=== PATIENT | female | born 1965 | race African-American/Black ===

== ENCOUNTER 2018-06-04 08:37 | Inpatient (IN) | payer OTHER ==
[2018-06-04 09:30] VITALS: BMI 25.0
--- NOTE | 2018-06-04 10:12 | HP ---
COWS - Scale Resting Pulse: 1= [place] 81-100 Sweatin= Chills/Flushing Restless Observation: 3= Extraneous Movement Pupil Size: 1= Pupils >than Normal Bone or Joint Aches: 2= Severe Diffuse Aches Runny Nose/ Eye Tearin= Runny Nose/Eyes GI Upset > 30mins: 2= Nausea/Diarrhea Tremor Observation: 2= Slight Tremor Visible Yawning Observation: 1= 1-2x During Session Anxiety or Irritability: 2=Irritable/Anxious Goose Flesh Skin: 0=Smooth Skin COWS Score: 17 CIWA Score Nausea/Vomitin Muscle Tremors: 2 Anxiety: 2 Agitation: 2 Paroxysmal Sweats: 1-Minimal Palms Moist Orientation: 0-Oriented Tacttile Disturbances: 1-Very Mild Itch/Numbness Auditory Disturbances: 1-Very Mild Visual Disturbances: 0-None Headache: 2-Mild CIWA-Ar Total Score: 13 - Admission Criteria OASAS Guidelines: Admission for Medically Managed Detox: Requires at least one of the followin. CIWA greater than 12 2. Seizures within the past 24 hours 3. Delirium tremens within the past 24 hours 4. Hallucinations within the past 24 hours 5. Acute intervention needed for co occurring medical disorder 6. Acute intervention needed for co occurring psychiatric disorder 7. Severe withdrawal that cannot be handled at a lower level of care (continued vomiting, continued diarrhea, abnormal vital signs) requiring intravenous medication and/or fluids 8. Admission ROS [facility] Chief Complaint: i need help to stop using heroin and alcohol Allergies/Adverse Reactions: Allergies Allergy/AdvReac Type Severity Reaction Status Date / Time No Known Allergies Allergy Verified 06/04/18 09:22 History of Present Illness: this 52 years old female with heroin and alcohol dependence,seeking detox, withdrawal symptom had previous admission before,last detox 2017 at [facility] nicotine 1 pack/requesting the gum anxiety,depression,insomnia taking seroquel 100 mgs po hs longest period of sobriety 5 years - Ebola screening Have you traveled outside of the country in the last 21 days: No Have you had contact with anyone from an Ebola affected area: No - Review of Systems Constitutional: Chills, Loss of Appetite, Malaise, Night Sweats, Changes in sleep, Weakness EENT: reports: Tearing, Nose Congestion Respiratory: reports: No Symptoms reported Cardiac: reports: No Symptoms Reported GI: reports: Diarrhea, Nausea, Vomiting, Abdominal cramping : reports: No Symptoms Reported Musculoskeletal: reports: Back Pain, Muscle Pain, Other (scoliois,arthritis of right hip) Integumentary: reports: Dryness Neuro: reports: Headache, Tremors Endocrine: reports: No Symptoms Reported Hematology: reports: No Symptoms Reported, Anemia Psychiatric: reports: No Sypmtoms Reported, Judgement Intact, Mood/Affect Appropiate, Orientated x3, Anxious, Depressed, other (insomnia) Other Systems: Reviewed and Negative Patient History - Patient Medical History Hx Anemia: Yes (no med) Hx Asthma: No Hx Chronic Obstructive Pulmonary Disease (COPD): No Hx Cancer: No Hx Cardiac Disorders: No Hx Congestive Heart Failure: No Hx Hypertension: No Hx Hypercholesterolemia: No Hx Pacemaker: No HX Cerebrovascular Accident: No Hx Seizures: No Hx Dementia: No Hx Diabetes: No Hx Gastrointestinal Disorders: No Hx Liver Disease: No Hx Genitourinary Disorders: No Hx Sexually Transmitted Disorders: No Hx Renal Disease (ESRD): No Hx Thyroid Disease: No Hx Human Immunodeficiency Virus (HIV): No (2018 negative) Hx Hepatitis C: No Hx Depression: Yes (anxiety) Hx Suicide Attempt: No Hx Bipolar Disorder: No Hx Schizophrenia: No Other Medical History: no suicidl,no homicidal - Patient Surgical History Past Surgical History: Yes Hx Section: Yes (x1 22 yers ago) - PPD History Previous Implant?: Yes Documented Results: Negative w/o proof PPD to be Administered?: Yes - Smoking Cessation Smoking history: Current every day smoker Have you smoked in the past 12 months: Yes Aproximately how many cigarettes per day: 20 Cigars Per Day: 0 Hx Chewing Tobacco Use: No Initiated information on smoking cessation: Yes 'Breaking Loose' booklet given: 06/04/18 - Substance & Tx. History Hx Alcohol Use: Yes Hx Substance Use: Yes Substance Use Type: Alcohol, Heroin Hx Substance Use Treatment: Yes (2017 [facility]) - Substances abused Heroin Substance route: Inhalation Frequency: Daily Amount used: 10 BAGS Age of first use: 20 Date of last use: 06/03/18 Alcohol Substance route: Oral Frequency: Daily Amount used: 1 L liquor, 1 pt. vodka Age of first use: 49 Date of last use: 06/03/18 Family Disease History - Family Disease History Family History: Denies Admission Physical Exam [facility] - Vital Signs Vital Signs: Vital Signs - 24 hr 06/04/18 09:25 Temperature 98 F Pulse Rate 70 Respiratory 18 Rate Blood Pressure 117/80 - Physical General Appearance: Yes: Moderate Distress, Tremorous, Irritable, Sweating, Anxious HEENTM: Yes: Normal ENT Inspection, ARMANDO, Pharynx Normal Respiratory: Yes: Lungs Clear, Normal Breath Sounds, No Respiratory Distress Neck: Yes: Within Normal Limits, Supple, Trachea in good position Breast: Yes: Breast Exam Deferred Cardiology: Yes: Within Normal Limits, Regular Rhythm, Regular Rate, S1, S2 Abdominal: Yes: Within Normal Limits, Normal Bowel Sounds, Non Tender, Flat, Soft Genitourinary: Yes: Within Normal Limits Back: Yes: Muscle Spasm, Other (scoliosis) Musculoskeletal: Yes: Back pain, Joint Stiffness, Muscle Pain, Other (right hip arthritis) Extremities: Yes: Normal Capillary Refill, Normal Inspection, Normal Range of Motion, Tremors Neurological: Yes: applications administrator II-XII NML intact, Fully Oriented, Alert, Motor Strength 5/5 Integumentary: Yes: Dry Lymphatic: Yes: Within Normal Limits - Diagnostic (1) Opioid dependence with withdrawal Current Visit: Yes Status: Acute (2) Alcohol dependence with uncomplicated withdrawal Current Visit: Yes Status: Acute (3) Scoliosis Current Visit: Yes Status: Acute (4) Arthritis of right hip Current Visit: Yes Status: Acute (5) Anxiety and depression Current Visit: Yes Status: Acute (6) Insomnia Current Visit: Yes Status: Acute Cleared for Admission [facility] - Detox or Rehab [facility] Level of Care: Medically Managed Detox Regimen/Protocol: Methadone/Librium Breathalyzer - Breathalyzer Breathalyzer: 0 POC Urine test - Test device test lot number: [id number] Expiration date: 10/21/19 - Control test control: Yes - Result Urine Test Results: Negative - NO line present Urine Drug Screen - Test Device Lot number: [id number] Expiration date: 01/20/20 - Control Is test valid?: Yes - Results Drug screen NEGATIVE: No Urine drug screen results: MOP-Opiates Inpatient Rehab Admission - Rehab Decision to Admit Inpatient rehab admission?: No
[2018-06-04] MEDS ORDERED: MAGNESIUM HYDROX 2400MG/30ML ORAL SUSPENSION 30 ML CUP PO PRN (10:23)
[2018-06-04] MEDS ORDERED: BISMUTH SUBSALICYLATE 262 MG/15 ML BTL PO PRN (10:23)
[2018-06-04] MEDS ORDERED: MAGNESIUM CITRATE 300 ML BOTTLE PO PRN (10:23)
[2018-06-04] MEDS ORDERED: ACETAMINOPHEN 325 MG TABLET (FP) PO PRN (10:23)
[2018-06-04] MEDS ORDERED: MENTHOL/PHENOL 1 EACH UD MM PRN (10:23)
[2018-06-04] MEDS ORDERED: MAG HYDROX/AL HYDROX/SIMETH 30 ML UNIT-DOSE CUP PO PRN (10:23)
[2018-06-04] MEDS ORDERED: IBUPROFEN 400 MG TABLET (FP) PO PRN (10:23)
[2018-06-04] MEDS ORDERED: METHADONE HCL 10 MG TABLET (FOR DETOX USE ONLY) PO ONE ×2 (10:27→23:00)
[2018-06-04] MEDS: chlordiazePOXIDE HCL 25 MG CAPSULE PO PRN (11:32)
[2018-06-04 14:31] LABS: URINE APPEARANCE TURBID; URINE BILIRUBIN NEGATIVE (NEGATIVE); URINE COLOR DK YELLOW; URINE GLUCOSE (UA) NEGATIVE (NEGATIVE); URINE KETONE TRACE (NEGATIVE); URINE LEUK ESTERASE NEGATIVE (NEGATIVE); URINE NITRITE NEGATIVE (NEGATIVE); URINE PROTEIN NEGATIVE (NEGATIVE)
[2018-06-04 14:37] LABS: HEMATOCRIT 34.9 % (32.4-45.2); MCH 23.8 pg (25.7-33.7); MCHC 31.4 g/dl (32.0-36.0); MEAN CELL VOLUME 75.6 fl (80-96); MEAN PLT VOLUME 8.3 fl (7.5-11.1); PLATELET COUNT 336 K/MM3 (134-434); RBC 4.61 M/mm3 (3.60-5.2); RDW 17.5 % (11.6-15.6); WHITE BLOOD COUNT 7.2 K/mm3 (4.0-10.0)
[2018-06-04 14:56] LABS: ALBUMIN 3.5 g/dl (3.4-5.0); ALK PHOS 125 U/L (45-117); ANION GAP 4 MMOL/L (8-16); BILIRUBIN,TOTAL 0.3 mg/dL (0.2-1); BLOOD UREA NITROGEN 12 mg/dL (7-18); CALCIUM 8.9 mg/dL (8.5-10.1); CHLORIDE 107 mmol/L (98-107); CO2 27 mmol/L (21-32); CREATININE 0.7 mg/dL (0.55-1.3); GLUCOSE,RANDOM 122 mg/dL (74-106); POTASSIUM 3.8 mmol/L (3.5-5.1); SGOT/AST 13 U/L (15-37); SGPT/ALT 13 U/L (13-61); SODIUM 138 mmol/L (136-145); TOT PROT 7.6 g/dl (6.4-8.2)
[2018-06-04] MEDS: chlordiazePOXIDE HCL 25 MG CAPSULE PO SCH ×2 (17:10→22:22)
[2018-06-04] MEDS: QUEtiapine FUMARATE 100 MG TABLET (FP) PO SCH (22:21)
[2018-06-04] MEDS: THIAMINE HCL 100 MG TABLET (FP) PO SCH (22:21)
[2018-06-04] MEDS: MELATONIN 5 MG TABLETS PO PRN (22:22)
[2018-06-05] MEDS: chlordiazePOXIDE HCL 25 MG CAPSULE PO SCH ×4 (05:29→22:18)
[2018-06-05] MEDS ORDERED: METHADONE HCL 10 MG TABLET (FOR DETOX USE ONLY) PO ONE (10:00)
[2018-06-05] MEDS: PANTOPRAZOLE 40 MG TABLET (FP) PO SCH (10:06)
[2018-06-05] MEDS: PRENATAL VITAMINS W/ FOLIC ACID TABLET (FP) PO SCH (10:06)
--- NOTE | 2018-06-05 10:30 | PN ---
[facility] CIWA - CIWA Score Nausea/Vomitin-No Nausea/No Vomiting Muscle Tremors: 3 Anxiety: 3 Agitation: 3 Paroxysmal Sweats: 3 Orientation: 0-Oriented Tacttile Disturbances: 0-None Auditory Disturbances: 0-None Visual Disturbances: 0-None Headache: 0-None Present CIWA-Ar Total Score: 12 [facility]HS COWS - Scale Resting Pulse: 0= [place] 80 or Below Sweatin=Flushed/Facial Moisture Restless Observation: 1= Difficult to Sit Still Pupil Size: 0= Normal to Room Light Bone or Joint Aches: 1= Mild Discomfort Runny Nose/ Eye Tearin= Runny Nose/Eyes GI Upset > 30mins: 1= Stomach Cramp Tremor Observation of Outstretched Hands: 1= Tremor [place], Not Seen Yawning Observation: 1= 1-2x During Session Anxiety or Irritability: 1=Feels Anxious/Irritable Goose Flesh Skin: 0=Smooth Skin COWS Score: 10 S Progress Note (SOAP) Subjective: sweats shakes low appetite interrupted sleep tired body aches Objective: 06/05/18 10:30 Vital Signs Temperature 98.1 F 06/05/18 09:17 Pulse Rate 72 06/05/18 09:17 Respiratory Rate 18 06/05/18 09:17 Blood Pressure 106/51 L 06/05/18 09:17 O2 Sat by Pulse Oximetry (%) Laboratory Tests 06/04/18 06/04/18 06/04/18 10:30 10:30 12:00 WBC 7.2 RBC 4.61 Hgb 11.0 Hct 34.9 MCV 75.6 L MCH 23.8 L MCHC 31.4 L RDW 17.5 H Plt Count 336 MPV 8.3 Sodium 138 Potassium 3.8 Chloride 107 Carbon Dioxide 27 Anion Gap 4 L BUN 12 Creatinine 0.7 Creat Clearance w eGFR 87.53 Random Glucose 122 H Calcium 8.9 Total Bilirubin 0.3 AST 13 L ALT 13 Alkaline Phosphatase 125 H Total Protein 7.6 Albumin 3.5 Urine Color Dk yellow Urine Appearance Turbid Urine pH 5.0 Ur Specific [place] 1.028 Urine Protein Negative Urine Glucose (UA) Negative Urine Ketones Trace H Urine Blood Negative Urine Nitrite Negative Urine Bilirubin Negative Urine Urobilinogen 1.0 Ur Leukocyte Esterase Negative aaox3 ambulating no acute distress Assessment: 06/05/18 10:30 withdrawal sx Plan: continue detox increase fluids
--- NOTE | 2018-06-05 10:54 | EKG ---
Test Reason : Blood Pressure : / mmHG Vent. Rate : 070 BPM Atrial Rate : 070 BPM P-R Int : 148 ms QRS Dur : 084 ms QT Int : 416 ms P-R-T Axes : 052 049 060 degrees QTc Int : 449 ms NORMAL SINUS RHYTHM NORMAL ECG NO PREVIOUS ECGS AVAILABLE Confirmed by MD Gregory, Prasanth ([id number]) on 06/05/2018 10:54:10 AM Referred By: Confirmed By:Prasanth Jenkins MD
--- NOTE | 2018-06-05 11:29 | CONSULT ---
[facility] Psychiatric Consult - Data Date of interview: 06/05/18 Admission source: Self-referred Identifying data: Ms Frazier is a 52 years old single Black female, mother of 3 children, unemployed receiving food stamp,living with girlfriend seeking detox treatment for alcohol and opioid Substance Abuse History: Reports history of alcohol and opioid use. Refer to addiction counselor's summary for further information. Medical History: Significant for anemia, GERD, scoliosis, arthritis right hip and history of x2. Smokes cigarettes 1 ppd Psychiatric History: Patient does not seems to be a reliable historian. Reports that for years while in [place], she has been seeing different psychiatrists for treatment of depression, anxiety and insomnia. Reports that she has been prescribed Seroquel, Doxepin and other medications. Told music writer that she has not had any psychiatric contact since she moved to [place] in December 2017. She denies previous psychiatric hospitalization or suicidal attempt. She saw Dr Green in [facility] and she was started on Seroquel 100 mg po HS. At present, reports feeling depressed and sleeping poorly Physical/Sexual Abuse/Trauma History: Denies history of emotional, physical or sexual abuse as well as DV relation. No service Additional Comment: Reports history of multiple previous misdemeanor arrests. No probation or open case at present Mental Status Exam - Mental Status Exam Alert and Oriented to: Time, Place, Person Cognitive Function: Fair Patient Appearance: Well Groomed Mood: Depressed Affect: Appropriate Patient Behavior: Cooperative Speech Pattern: Clear, Artificially Ventilated Thought Process: Intact, Goal Oriented Thought Disorder: Not Present Hallucinations: Denies Suicidal Ideation: Denies Insight/Judgement: Poor Sleep: Poorly Appetite: Poor Muscle strength/Tone: Normal Gait/Station: Normal Psychiatric Findings - Problem List (Martha 1, 2,3) (1) Mood disorder Current Visit: Yes Status: Chronic (2) Substance induced mood disorder Current Visit: Yes Status: Acute (3) Substance-induced sleep disorder Current Visit: Yes Status: Acute (4) Alcohol dependence with uncomplicated withdrawal Current Visit: Yes Status: Acute (5) Opioid dependence with withdrawal Current Visit: Yes Status: Acute (6) Nicotine dependence Current Visit: Yes Status: Chronic (7) Arthritis of right hip Current Visit: Yes Status: Chronic (8) Scoliosis Current Visit: Yes Status: Chronic (9) Anemia Current Visit: Yes Status: Chronic (10) GERD (gastroesophageal reflux disease) Current Visit: Yes Status: Chronic - Initial Treatment Plan Initial Treatment Plan: 1) Continue Seroquel 100 mg po HS ordered by Dr Green. 2) Continue inpatent detoxification
[2018-06-05] MEDS: NICOTINE POLACRILEX 2 MG GUM BUC PRN ×2 (11:38→17:09)
[2018-06-05] MEDS: chlordiazePOXIDE HCL 25 MG CAPSULE PO PRN (12:36)
[2018-06-05] MEDS: ACETAMINOPHEN 325 MG TABLET (FP) PO PRN (17:11)
[2018-06-05] MEDS: QUEtiapine FUMARATE 100 MG TABLET (FP) PO SCH (22:18)
[2018-06-05] MEDS: THIAMINE HCL 100 MG TABLET (FP) PO SCH (22:18)
[2018-06-05] MEDS: MELATONIN 5 MG TABLETS PO PRN (22:19)
[2018-06-06] MEDS: chlordiazePOXIDE HCL 25 MG CAPSULE PO SCH ×2 (05:43→10:19)
[2018-06-06] MEDS: cloNIDine HCL 0.1 MG TABLET PO PRN ×3 (05:44→22:11)
[2018-06-06] MEDS ORDERED: METHADONE HCL 10 MG TABLET (FOR DETOX USE ONLY) PO ONE (10:00)
[2018-06-06] MEDS: PANTOPRAZOLE 40 MG TABLET (FP) PO SCH (10:19)
[2018-06-06] MEDS: PRENATAL VITAMINS W/ FOLIC ACID TABLET (FP) PO SCH (10:19)
[2018-06-06] MEDS: NICOTINE POLACRILEX 2 MG GUM BUC PRN (10:29)
--- NOTE | 2018-06-06 12:26 | PN ---
[facility] CIWA - CIWA Score Nausea/Vomitin-No Nausea/No Vomiting Muscle Tremors: 3 Anxiety: 2 Agitation: 2 Paroxysmal Sweats: 2 Orientation: 0-Oriented Tacttile Disturbances: 0-None Auditory Disturbances: 0-None Visual Disturbances: 0-None Headache: 0-None Present CIWA-Ar Total Score: 9 BHS COWS - Scale Resting Pulse: 0= [place] 80 or Below Sweatin=Flushed/Facial Moisture Restless Observation: 1= Difficult to Sit Still Pupil Size: 0= Normal to Room Light Bone or Joint Aches: 1= Mild Discomfort Runny Nose/ Eye Tearin= Nasal Congestion GI Upset > 30mins: 0= None Tremor Observation of Outstretched Hands: 1= Tremor [place], Not Seen Yawning Observation: 1= 1-2x During Session Anxiety or Irritability: 2=Irritable/Anxious Goose Flesh Skin: 0=Smooth Skin COWS Score: 9 S Progress Note (SOAP) Subjective: sweats sleepy tired body aches Objective: 06/06/18 12:25 Vital Signs Temperature 97.5 F L 06/06/18 09:42 Pulse Rate 73 06/06/18 09:42 Respiratory Rate 18 06/06/18 09:42 Blood Pressure 119/66 06/06/18 09:42 O2 Sat by Pulse Oximetry (%) Laboratory Tests 06/04/18 06/04/18 06/04/18 10:30 10:30 10:30 WBC 7.2 RBC 4.61 Hgb 11.0 Hct 34.9 MCV 75.6 L MCH 23.8 L MCHC 31.4 L RDW 17.5 H Plt Count 336 MPV 8.3 Sodium 138 Potassium 3.8 Chloride 107 Carbon Dioxide 27 Anion Gap 4 L BUN 12 Creatinine 0.7 Creat Clearance w eGFR 87.53 Random Glucose 122 H Calcium 8.9 Total Bilirubin 0.3 AST 13 L ALT 13 Alkaline Phosphatase 125 H Total Protein 7.6 Albumin 3.5 Urine Color Urine Appearance Urine pH Ur Specific [place] Urine Protein Urine Glucose (UA) Urine Ketones Urine Blood Urine Nitrite Urine Bilirubin Urine Urobilinogen Ur Leukocyte Esterase RPR Titer Nonreactive 06/04/18 12:00 WBC RBC Hgb Hct MCV MCH MCHC RDW Plt Count MPV Sodium Potassium Chloride Carbon Dioxide Anion Gap BUN Creatinine Creat Clearance w eGFR Random Glucose Calcium Total Bilirubin AST ALT Alkaline Phosphatase Total Protein Albumin Urine Color Dk yellow Urine Appearance Turbid Urine pH 5.0 Ur Specific [place] 1.028 Urine Protein Negative Urine Glucose (UA) Negative Urine Ketones Trace H Urine Blood Negative Urine Nitrite Negative Urine Bilirubin Negative Urine Urobilinogen 1.0 Ur Leukocyte Esterase Negative RPR Titer aaox3 ambulating no acute distress Assessment: 06/06/18 12:25 withdrawal sx Plan: continue detox increase fluids
[2018-06-06] MEDS ORDERED: chlordiazePOXIDE HCL 10 MG CAPSULE PO PRN (17:00)
[2018-06-06] MEDS: chlordiazePOXIDE HCL 10 MG CAPSULE PO SCH ×2 (17:20→22:11)
[2018-06-06] MEDS: ACETAMINOPHEN 325 MG TABLET (FP) PO PRN (19:16)
[2018-06-06] MEDS ORDERED: IBUPROFEN 400 MG TABLET (FP) PO PRN (19:18)
[2018-06-06] MEDS: hydrOXYzine PAMOATE 25 MG CAPSULE (FP) PO PRN (19:20)
--- NOTE | 2018-06-06 19:20 | PN ---
[facility] Progress Note Note: hip pain no relief with ibuprofen 400mg, pending hip replacement ibuprofen increase to 600mg tid increase fluids continue to monitor
[2018-06-06] MEDS: METHOCARBAMOL 500 MG TABLET PO PRN (19:21)
[2018-06-06] MEDS: IBUPROFEN 600 MG TABLET (FP) PO PRN (22:10)
[2018-06-06] MEDS: THIAMINE HCL 100 MG TABLET (FP) PO SCH (22:11)
[2018-06-06] MEDS: MELATONIN 5 MG TABLETS PO PRN (22:11)
[2018-06-06] MEDS: QUEtiapine FUMARATE 100 MG TABLET (FP) PO SCH (22:11)
[2018-06-07] MEDS: chlordiazePOXIDE HCL 10 MG CAPSULE PO SCH ×3 (05:30→17:32)
[2018-06-07] MEDS: IBUPROFEN 600 MG TABLET (FP) PO PRN ×2 (09:49→22:01)
[2018-06-07] MEDS ORDERED: METHADONE HCL 10 MG TABLET (FOR DETOX USE ONLY) PO ONE (10:00)
[2018-06-07] MEDS: PRENATAL VITAMINS W/ FOLIC ACID TABLET (FP) PO SCH (10:35)
[2018-06-07] MEDS: PANTOPRAZOLE 40 MG TABLET (FP) PO SCH (10:35)
[2018-06-07] MEDS: NICOTINE POLACRILEX 2 MG GUM BUC PRN ×2 (12:33→15:16)
--- NOTE | 2018-06-07 13:11 | PN ---
S Progress Note (SOAP) Subjective: agitation sweats i need my acid reflux medication before breakfast Objective: 06/07/18 13:09 Vital Signs Temperature 96.3 F L 06/07/18 10:55 Pulse Rate 94 H 06/07/18 10:55 Respiratory Rate 18 06/07/18 10:55 Blood Pressure 109/73 06/07/18 10:55 O2 Sat by Pulse Oximetry (%) aaox3 ambulating no acute distress Assessment: 06/07/18 13:10 mild withdrawal Plan: continue detox protonix ordered for 6am as per pt request d/c in am
[2018-06-07] MEDS: hydrOXYzine PAMOATE 25 MG CAPSULE (FP) PO PRN (20:27)
[2018-06-07] MEDS: MELATONIN 5 MG TABLETS PO PRN (22:00)
[2018-06-07] MEDS: QUEtiapine FUMARATE 100 MG TABLET (FP) PO SCH (22:02)
[2018-06-07] MEDS: THIAMINE HCL 100 MG TABLET (FP) PO SCH (22:02)
[2018-06-07] MEDS: METHOCARBAMOL 500 MG TABLET PO PRN (22:02)
[2018-06-08] MEDS: chlordiazePOXIDE HCL 10 MG CAPSULE PO SCH (05:39)
[2018-06-08] MEDS ORDERED: METHADONE HCL 5 MG TABLET (FOR DETOX USE ONLY) PO ONE (06:00)
[2018-06-08] MEDS ORDERED: PANTOPRAZOLE 40 MG TABLET (FP) PO SCH (06:00)
[2018-06-08 07:12] VITALS: BP 146/90; PULSE 78; TEMP 97.5
--- NOTE | 2018-06-08 08:55 | DS ---
[facility] Detox Discharge Summary Admission Date: 06/04/18 Discharge Date: 06/08/18 - History Present History: Alcohol Dependence, Opioid Dependence Additional Comments: Patient medically stable. Patient - Physical Exam Results Vital Signs: Vital Signs Temperature 97.5 F L 06/08/18 06:00 Pulse Rate 78 06/08/18 06:00 Respiratory Rate 18 06/08/18 06:00 Blood Pressure 146/90 06/08/18 06:00 O2 Sat by Pulse Oximetry (%) - Treatment Hospital Course: Detox Protocol Followed, Detoxed Safely, Responded well, Discharged Condition Good Patient has Accepted a Rehab Referral to: out patient - Medication Discharge Medications: Ambulatory Orders Omeprazole 10 mg PO PRN 06/04/18 - Diagnosis (1) Alcohol dependence with uncomplicated withdrawal Status: Acute (2) Insomnia Status: Acute Qualifiers: Insomnia type: unspecified Qualified Code(s): G47.00 - Insomnia, unspecified (3) Anemia Status: Chronic (4) Arthritis of right hip Status: Chronic (5) GERD (gastroesophageal reflux disease) Status: Chronic (6) Nicotine dependence Status: Chronic (7) Scoliosis Status: Chronic - AMA Did Patient Leave Against Medical Advice: No
== END 2018-06-08 09:00 | disposition home or self-care (01) | DRG 773 ==
LOC: YASAS 08:37 → Y6N 10:27
PROVIDERS: ADMIT Surgery; ATTEND Surgery
PROC: HZ2ZZZZ Detoxification Services for Substance Abuse Treatment (ICD-10-PCS; principal; 2018-06-04)
DX: F11.23 Opioid dependence with withdrawal (principal); F10.230 Alcohol dependence with withdrawal, uncomplicated; F17.210 Nicotine dependence, cigarettes, uncomplicated; F39 Unspecified mood [affective] disorder; F19.24 Other psychoactive substance dependence with psychoactive substance-induced mood disorder; F19.282 Other psychoactive substance dependence with psychoactive substance-induced sleep disorder; F32.9 Major depressive disorder, single episode, unspecified; F41.9 Anxiety disorder, unspecified; K21.9 Gastro-esophageal reflux disease without esophagitis; D64.9 Anemia, unspecified; M16.11 Unilateral primary osteoarthritis, right hip; M41.9 Scoliosis, unspecified; G47.00 Insomnia, unspecified
CPT/HCPCS: 36415; 80053; 81003; 85027; 86593; 93005; 93010; J0735

== ENCOUNTER 2018-12-19 08:24 | Inpatient (IN) | payer OTHER ==
[2018-12-19 08:41] VITALS: BMI 23.1
--- NOTE | 2018-12-19 09:07 | HP ---
COWS - Scale Resting Pulse: 1= [place] 81-100 Sweatin= No chills or Flushing Restless Observation: 1= Difficult to Sit Still Pupil Size: 1= Pupils >than Normal Bone or Joint Aches: 1= Mild Discomfort Runny Nose/ Eye Tearin= Nasal Congestion GI Upset > 30mins: 1= Stomach Cramp Tremor Observation: 1= Tremor [place], Not Seen Yawning Observation: 1= 1-2x During Session Anxiety or Irritability: 2=Irritable/Anxious Goose Flesh Skin: 3=Piloerection COWS Score: 13 CIWA Score - Admission Criteria OASAS Guidelines: Admission for Medically Managed Detox: Requires at least one of the followin. CIWA greater than 12 2. Seizures within the past 24 hours 3. Delirium tremens within the past 24 hours 4. Hallucinations within the past 24 hours 5. Acute intervention needed for co occurring medical disorder 6. Acute intervention needed for co occurring psychiatric disorder 7. Severe withdrawal that cannot be handled at a lower level of care (continued vomiting, continued diarrhea, abnormal vital signs) requiring intravenous medication and/or fluids 8. Admitting History and Physical - Admission Chief Complaint: " I want to prevent myself from continuing heroin." History of Present Illness: 53 year old black female with history of opioid dependence with withdrawals. She states she relapsed in 09/2018 and started using again heavily 5-6 bags of heroin intransally every day. She was bored and wanted to use again. She is unemployed and homeless and stays with friends and family, not in assisted system. She states she has not overdosed in the past and carries a narcan kit. She admits to having partied yesterday and use multiple substances: cocaine, crack, pcp, and oxycodone. She is prescribed Oxycodone by orthopedist due to Scoliosis and chronic back pain. She is also prescribed benzodiazepines for the chronic pain and anxiety. Psych: Dr. Henriquez who prescribed xanax, seroquel and one other medication. H/O Depression and Anxiety. She denies SI or plans. PMH: Scoliosis, GERD, Requires Hip replacement Right hip arthritis, Anemia on no meds. ?Pancreas Kidney issues. All: none Psurgery: Prior C/S. History Source: Patient Limitations to Obtaining History: No Limitations - Past Medical History Gastrointestinal: Yes: GERD ...LMP: 11/25/14 (post menopausal) ...: No ...: 3 ...Para: 3 Psych: Yes: Anxiety, Depression - Past Surgical History Additional Past Surgical History: caesarian section for of 3rd child. - Advance Directives Advance Directives: No: Living Will, Health Care Proxy, DNR - Smoking History Smoking history: Current every day smoker Have you smoked in the past 12 months: Yes Aproximately how many cigarettes per day: 20 - Alcohol/Substance Use Hx Alcohol Use: Yes (occasional) History of Substance Use: reports: Cocaine, Heroin, Prescription, Tranquilizers - Social History Usual Living Arrangement: Yes: Alone Do you think of yourself as: Straight/Heterosexual ADL: Independent Occupation: Cook History of Recent Travel: No Admission [facility] Chief Complaint: " I want to prevent myself from continuing heroin." Allergies/Adverse Reactions: Allergies Allergy/AdvReac Type Severity Reaction Status Date / Time No Known Allergies Allergy Verified 12/19/18 08:34 History of Present Illness: 53 year old black female with history of opioid dependence with withdrawals. She states she relapsed in 09/2018 and started using again heavily 5-6 bags of heroin intransally every day. She was bored and wanted to use again. She is unemployed and homeless and stays with friends and family, not in assisted system. She states she has not overdosed in the past and carries a narcan kit. She admits to having partied yesterday and use multiple substances: cocaine, crack, pcp, and oxycodone. She is prescribed Oxycodone by orthopedist due to Scoliosis and chronic back pain. She is also prescribed benzodiazepines for the chronic pain and anxiety. Psych: Dr. Henriquez who prescribed xanax, seroquel and one other medication. H/O Depression and Anxiety. She denies SI or plans. PMH: Scoliosis, GERD, Requires Hip replacement for Right hip arthritis, anemia on no meds ?Pancreas Kidney issues. All: none Psurgery: Prior C/S. Exam Limitations: No Limitations - Ebola screening Have you traveled outside of the country in the last 21 days: No Have you had contact with anyone from an Ebola affected area: No Have you been sick,other than usual withdrawal symptoms: No Do you have a fever: No - Review of Systems Constitutional: Chills, Diaphoresis EENT: reports: No Symptoms Reported Respiratory: reports: No Symptoms reported Cardiac: reports: No Symptoms Reported GI: reports: Nausea, Abdominal cramping : reports: No Symptoms Reported Musculoskeletal: reports: Joint Pain, Muscle Pain Integumentary: reports: No Symptoms Reported Neuro: reports: No Symptoms reported Endocrine: reports: No Symptoms Reported Hematology: reports: No Symptoms Reported Psychiatric: reports: Agitated, Anxious, Depressed Other Systems: Reviewed and Negative Patient History - Patient Medical History Hx Anemia: Yes (no med) Hx Asthma: No Hx Chronic Obstructive Pulmonary Disease (COPD): No Hx Cancer: No Hx Cardiac Disorders: No Hx Congestive Heart Failure: No Hx Hypertension: No Hx Hypercholesterolemia: No Hx Pacemaker: No HX Cerebrovascular Accident: No Hx Seizures: No Hx Dementia: No Hx Diabetes: No Hx Gastrointestinal Disorders: No Hx Liver Disease: No Hx Genitourinary Disorders: No Hx Sexually Transmitted Disorders: No Hx Renal Disease (ESRD): No Hx Thyroid Disease: No Hx Human Immunodeficiency Virus (HIV): No (2018 negative) Hx Hepatitis C: No Hx Depression: Yes (anxiety) Hx Suicide Attempt: No Hx Bipolar Disorder: No Hx Schizophrenia: No - Patient Surgical History Past Surgical History: Yes Hx Section: Yes (x1 22 yers ago) - PPD History Previous Implant?: Yes Documented Results: Negative w/proof Implanted On Prior R Admission?: Yes Date: 06/06/18 Results: negative PPD to be Administered?: Yes - Smoking Cessation Smoking history: Current every day smoker Have you smoked in the past 12 months: Yes Aproximately how many cigarettes per day: 20 Cigars Per Day: 0 Hx Chewing Tobacco Use: No Initiated information on smoking cessation: Yes 'Breaking Loose' booklet given: 12/19/18 - Substance & Tx. History Hx Alcohol Use: No Hx Substance Use: Yes Substance Use Type: Cocaine, Heroin, Opiates, Prescribed Hx Substance Use Treatment: Yes (prior detox in 05/2018) - Substances abused Heroin Substance route: Inhalation Frequency: Daily Amount used: 6 BAGS Age of first use: 20 Date of last use: 12/19/18 Alcohol Substance route: Oral Frequency: Daily Amount used: 1 L liquor, 1 pt. vodka Age of first use: 49 Date of last use: 06/03/18 Admission Physical Exam BHS - Vital Signs Vital Signs: Vital Signs - 24 hr 12/19/18 08:38 Temperature 97.1 F L Pulse Rate 85 Respiratory 18 Rate Blood Pressure 107/76 - Physical General Appearance: Yes: Mild Distress HEENTM: Yes: EOMI, Hearing grossly Normal, Normal ENT Inspection, Normocephalic , Normal Voice, ARMANDO, Pharynx Normal, Tm's normal Respiratory: Yes: Chest Non-Tender, Lungs Clear, Normal Breath Sounds, No Respiratory Distress, No Accessory Muscle Use Neck: Yes: No masses,lesions,Nodules, Supple, Trachea in good position Breast: Yes: Breast Exam Deferred Cardiology: Yes: Regular Rhythm, S1, S2, Tachycardia Abdominal: Yes: Non Tender, Soft, Increased Bowel Sounds Genitourinary: Yes: Within Normal Limits Back: Yes: Normal Inspection Musculoskeletal: Yes: full range of Motion, Gait Steady, Pelvis Stable Extremities: Yes: Normal Capillary Refill Neurological: Yes: track leader II-XII NML intact, Fully Oriented, Alert, Motor Strength 5/5, Normal Mood/Affect, Unresponsive Integumentary: Yes: Normal Color, Warm Lymphatic: Yes: Within Normal Limits - Diagnostic (1) Opioid dependence with withdrawal Current Visit: Yes Status: Acute (2) Anemia Current Visit: Yes Status: Chronic (3) Arthritis of right hip Current Visit: Yes Status: Chronic (4) GERD (gastroesophageal reflux disease) Current Visit: Yes Status: Chronic Screened but not Admitted - Documentation of Visit Screened but not Admitted: No Breathalyzer - Breathalyzer Breathalyzer: 0 Vital Signs - Vital Signs Vital signs refused: No POC Urine test - Test device test lot number: [id number] Expiration date: 10/21/19 - Control test control: Yes Urine Drug Screen - Test Device Lot number: [id number] Expiration date: 01/20/20 - Control Is test valid?: Yes - Results Drug screen NEGATIVE: No Urine drug screen results: DEYVI-Cocaine, FEN-Fentanyl, MOP-Opiates, BZO- Benzodiazepines, BUP-Suboxone Inpatient Rehab Admission - Rehab Decision to Admit Inpatient rehab admission?: No
[2018-12-19] MEDS ORDERED: METHADONE HCL 10 MG TABLET (FOR DETOX USE ONLY) PO ONE (09:19)
[2018-12-19] MEDS ORDERED: MELATONIN 5 MG TABLETS PO PRN (09:19)
[2018-12-19] MEDS ORDERED: MAG HYDROX/AL HYDROX/SIMETH 30 ML UNIT-DOSE CUP PO PRN (09:19)
[2018-12-19] MEDS ORDERED: METHOCARBAMOL 500 MG TABLET PO PRN (09:19)
[2018-12-19] MEDS ORDERED: MAGNESIUM HYDROX 2400MG/30ML ORAL SUSPENSION 30 ML CUP PO PRN (09:19)
[2018-12-19] MEDS ORDERED: MENTHOL/PHENOL 1 EACH UD MM PRN (09:19)
[2018-12-19] MEDS ORDERED: hydrOXYzine PAMOATE 25 MG CAPSULE (FP) PO PRN (09:19)
[2018-12-19] MEDS ORDERED: BISMUTH SUBSALICYLATE 262 MG/15 ML BTL PO PRN (09:19)
[2018-12-19] MEDS ORDERED: ACETAMINOPHEN 325 MG TABLET (FP) PO PRN ×2 (09:19)
[2018-12-19] MEDS ORDERED: MAGNESIUM CITRATE 300 ML BOTTLE PO PRN (09:19)
[2018-12-19] MEDS ORDERED: IBUPROFEN 400 MG TABLET (FP) PO PRN (09:19)
[2018-12-19] MEDS ORDERED: PANTOPRAZOLE 40 MG TABLET (FP) PO SCH (10:00)
[2018-12-19] MEDS: PRENATAL VITAMINS W/ FOLIC ACID TABLET (FP) PO SCH (10:13)
[2018-12-19] MEDS: NICOTINE 14 MG/24 HOURS TOPICAL PATCH TD SCH (10:13)
[2018-12-19 12:18] LABS: HEMATOCRIT 40.4 % (32.4-45.2); HEMOGLOBIN 13.2 GM/dL (10.7-15.3); MCH 27.8 pg (25.7-33.7); MCHC 32.6 g/dl (32.0-36.0); MEAN CELL VOLUME 85.4 fl (80-96); MEAN PLT VOLUME 8.2 fl (7.5-11.1); PLATELET COUNT 355 K/MM3 (134-434); RBC 4.74 M/mm3 (3.60-5.2); RDW 16.1 % (11.6-15.6); WHITE BLOOD COUNT 7.7 K/mm3 (4.0-10.0)
[2018-12-19 12:34] LABS: ALBUMIN 3.6 g/dl (3.4-5.0); BILIRUBIN,TOTAL 0.5 mg/dL (0.2-1); CALCIUM 9.4 mg/dL (8.5-10.1); CREATININE 1.5 mg/dL (0.55-1.3); TOT PROT 7.4 g/dl (6.4-8.2)
[2018-12-19 12:44] LABS: POTASSIUM 2.9 mmol/L (3.5-5.1)
--- NOTE | 2018-12-19 13:10 | CONSULT ---
[facility] Psychiatric Consult - Data Date of interview: 12/19/18 Admission source: [facility] Identifying data: Readmission to [facility] for this 53 y/o AA female self- referred for detoxification (RIP issues : alcohol, cocaine, heroin, nicotine). Interviewed at [address] [place] [address]. Patient is single, a mother of three, domiciled (lives with friends), unemployed and supported on welfare. Substance Abuse History: Discussed with the patient. Details in current [facility] report as follows : Smoking history: Current every day smoker. Have you smoked in the past 12 months: Yes. Aproximately how many cigarettes per day: 20. Cigars Per Day: 0. Hx Chewing Tobacco Use: No. Initiated information on smoking cessation: Yes. 'Breaking Loose' booklet given: 12/19/18. - Substance & Tx. History. Hx Alcohol Use: No. Hx Substance Use: Yes. Substance Use Type : Cocaine, Heroin, Opiates, Prescribed. Hx Substance Use Treatment: Yes (prior detox in 05/2018). - Substances abused. Heroin. Substance route: Inhalation. Frequency: Daily. Amount used: 6 BAGS. Age of first use: 20. Date of last use: 12/19/18. Alcohol. Substance route: Oral. Frequency: Daily. Amount used: 1 L liquor, 1 pt. vodka. Age of first use: 49. Date of last use: 06/03/18 Medical History: Medical profile is significant for anemia, GERD, scoliosis, arthritis of right hip and a history of two sections. Psychiatric History: Patient denies history of psychiatric hospitalizations. She indicates that she has been diagnosed, in the past, with MDD and Anxiety Disorder (patient is familiar with has seroquel, doxepin and other unnamed psychotropic medications). No psychiatric follow-up since December 2017 (with the exception of a psychiatric consultation at [facility]). Patient denies history of suicide attempts. Physical/Sexual Abuse/Trauma History: Patient denies. Additional Comment: Urine drug screen results: DEYVI-Cocaine, FEN-Fentanyl, MOP- Opiates, BZO-Benzodiazepines, BUP-Suboxone. Noted. Mental Status Exam - Mental Status Exam Alert and Oriented to: Time, Place, Person Cognitive Function: Good Patient Appearance: Well Groomed Mood: Nervous, Withdrawn Affect: Mood Congruent, Constricted Patient Behavior: Sedated (mildly sedated), Fatigued Speech Pattern: Delayed, Slurred Voice Loudness: Normal Thought Process: Goal Oriented Thought Disorder: Not Present Hallucinations: Denies Suicidal Ideation: Denies Homicidal Ideation: Denies Insight/Judgement: Poor Sleep: Well Appetite: Good Gait/Station: Normal Psychiatric Findings - Problem List ([place] 1, 2,3) (1) Alcohol dependence with uncomplicated withdrawal Current Visit: Yes Status: Acute (2) Opioid dependence with withdrawal Current Visit: Yes Status: Acute (3) Cocaine abuse Current Visit: Yes Status: Chronic (4) Nicotine dependence Current Visit: Yes Status: Chronic (5) Substance induced mood disorder Current Visit: Yes Status: Acute (6) Insomnia Current Visit: Yes Status: Chronic Qualifiers: Insomnia type: unspecified Qualified Code(s): G47.00 - Insomnia, unspecified - Initial Treatment Plan Initial Treatment Plan: Psychoeducation. Sleep hygiene. Detoxification. MAT services recommended to patient. Seroquel 100 mg po hs. Side effects/benefits discussed with patient. Gave verbal consent to Observation.
--- NOTE | 2018-12-19 13:38 | PN ---
BHS COWS - Scale Resting Pulse: 1= [place] 81-100 Sweatin= Chills/Flushing Restless Observation: 0= Sits Still Pupil Size: 1= Pupils >than Normal Bone or Joint Aches: 1= Mild Discomfort Runny Nose/ Eye Tearin= None GI Upset > 30mins: 1= Stomach Cramp Tremor Observation of Outstretched Hands: 2= Slight Tremor Visible Yawning Observation: 0= None Anxiety or Irritability: 2=Irritable/Anxious Goose Flesh Skin: 3=Piloerection COWS Score: 12 BHS Progress Note (SOAP) Subjective: 53 years old female admitted on 12/19/18 for opiate withdrawal sx management treated with methadone detox regimen patient tolerate well resting on bed feeling tired encourage to eat lunch Objective: 12/19/18 13:34 Vital Signs Temperature 97.7 F 12/19/18 13:30 Pulse Rate 81 12/19/18 13:30 Respiratory Rate 18 12/19/18 13:30 Blood Pressure 116/75 12/19/18 13:30 O2 Sat by Pulse Oximetry (%) Laboratory Last Values WBC 7.7 K/mm3 (4.0-10.0) 12/19/18 09:45 RBC 4.74 M/mm3 (3.60-5.2) 12/19/18 09:45 Hgb 13.2 GM/dL (10.7-15.3) 12/19/18 09:45 Hct 40.4 % (32.4-45.2) D 12/19/18 09:45 MCV 85.4 fl (80-96) 12/19/18 09:45 MCH 27.8 pg (25.7-33.7) D 12/19/18 09:45 MCHC 32.6 g/dl (32.0-36.0) 12/19/18 09:45 RDW 16.1 % (11.6-15.6) H 12/19/18 09:45 Plt Count 355 K/MM3 (134-434) 12/19/18 09:45 MPV 8.2 fl (7.5-11.1) 12/19/18 09:45 Sodium 139 mmol/L (136-145) 12/19/18 09:45 Potassium 2.9 mmol/L (3.5-5.1) L* 12/19/18 09:45 Chloride 99 mmol/L (98-107) 12/19/18 09:45 Carbon Dioxide 27 mmol/L (21-32) 12/19/18 09:45 Anion Gap 12 MMOL/L (8-16) 12/19/18 09:45 BUN 16.0 mg/dL (7-18) 12/19/18 09:45 Creatinine 1.5 mg/dL (0.55-1.3) H 12/19/18 09:45 Est GFR (CKD-EPI)AfAm 45.30 12/19/18 09:45 Est GFR (CKD-EPI)NonAf 39.09 12/19/18 09:45 Random Glucose 233 mg/dL (74-106) H 12/19/18 09:45 Calcium 9.4 mg/dL (8.5-10.1) 12/19/18 09:45 Total Bilirubin 0.5 mg/dL (0.2-1) 12/19/18 09:45 AST 9 U/L (15-37) L 12/19/18 09:45 ALT 12 U/L (13-61) L 12/19/18 09:45 Alkaline Phosphatase 103 U/L (45-117) 12/19/18 09:45 Total Protein 7.4 g/dl (6.4-8.2) 12/19/18 09:45 Albumin 3.6 g/dl (3.4-5.0) 12/19/18 09:45 HIV 1&2 Antibody Screen Negative 12/19/18 09:45 HIV P24 Antigen Negative 12/19/18 09:45 lab noted low K+ Assessment: 12/19/18 13:37 opiate withdrawal sx Plan: continue methadone detox
[2018-12-19] MEDS: POTASSIUM CHLORIDE ORAL LIQUID 20 MEQ/15 ML PO SCH ×2 (15:13→18:01)
[2018-12-19] MEDS ORDERED: QUEtiapine FUMARATE 100 MG TABLET (FP) PO SCH (22:00)
[2018-12-19] MEDS: THIAMINE HCL 100 MG TABLET (FP) PO SCH (22:27)
[2018-12-20] MEDS ORDERED: METHADONE HCL 5 MG TABLET (FOR DETOX USE ONLY) ONE (09:01)
[2018-12-20] MEDS ORDERED: METHADONE HCL 10 MG TABLET (FOR DETOX USE ONLY) ONE (09:01)
--- NOTE | 2018-12-20 09:12 | PN ---
BHS COWS - Scale Resting Pulse: 1= [place] 81-100 Sweatin= Chills/Flushing Restless Observation: 0= Sits Still Pupil Size: 1= Pupils >than Normal Bone or Joint Aches: 1= Mild Discomfort Runny Nose/ Eye Tearin= Nasal Congestion GI Upset > 30mins: 1= Stomach Cramp Tremor Observation of Outstretched Hands: 2= Slight Tremor Visible Yawning Observation: 1= 1-2x During Session Anxiety or Irritability: 2=Irritable/Anxious Goose Flesh Skin: 0=Smooth Skin COWS Score: 11 S Progress Note (SOAP) Subjective: 53 years old female admitted on 12/19/18 for opiate withdrawal sx management treated with methadone detox regimen c/o abdominal cramp bentyl 20 mg x 2 change potassium to 1300 K+ repeat pending Objective: 12/20/18 09:16 Vital Signs Temperature 97.1 F L 12/20/18 06:31 Pulse Rate 81 12/20/18 06:31 Respiratory Rate 18 12/20/18 06:31 Blood Pressure 121/74 12/20/18 06:31 O2 Sat by Pulse Oximetry (%) Laboratory Last Values WBC 7.7 K/mm3 (4.0-10.0) 12/19/18 09:45 RBC 4.74 M/mm3 (3.60-5.2) 12/19/18 09:45 Hgb 13.2 GM/dL (10.7-15.3) 12/19/18 09:45 Hct 40.4 % (32.4-45.2) D 12/19/18 09:45 MCV 85.4 fl (80-96) 12/19/18 09:45 MCH 27.8 pg (25.7-33.7) D 12/19/18 09:45 MCHC 32.6 g/dl (32.0-36.0) 12/19/18 09:45 RDW 16.1 % (11.6-15.6) H 12/19/18 09:45 Plt Count 355 K/MM3 (134-434) 12/19/18 09:45 MPV 8.2 fl (7.5-11.1) 12/19/18 09:45 Sodium 139 mmol/L (136-145) 12/19/18 09:45 Potassium 2.9 mmol/L (3.5-5.1) L* 12/19/18 09:45 Chloride 99 mmol/L (98-107) 12/19/18 09:45 Carbon Dioxide 27 mmol/L (21-32) 12/19/18 09:45 Anion Gap 12 MMOL/L (8-16) 12/19/18 09:45 BUN 16.0 mg/dL (7-18) 12/19/18 09:45 Creatinine 1.5 mg/dL (0.55-1.3) H 12/19/18 09:45 Est GFR (CKD-EPI)AfAm 45.30 12/19/18 09:45 Est GFR (CKD-EPI)NonAf 39.09 12/19/18 09:45 Random Glucose 233 mg/dL (74-106) H 12/19/18 09:45 Calcium 9.4 mg/dL (8.5-10.1) 12/19/18 09:45 Total Bilirubin 0.5 mg/dL (0.2-1) 12/19/18 09:45 AST 9 U/L (15-37) L 12/19/18 09:45 ALT 12 U/L (13-61) L 12/19/18 09:45 Alkaline Phosphatase 103 U/L (45-117) 12/19/18 09:45 Total Protein 7.4 g/dl (6.4-8.2) 12/19/18 09:45 Albumin 3.6 g/dl (3.4-5.0) 12/19/18 09:45 RPR Titer Nonreactive (NONREACTIVE) 12/19/18 09:45 HIV 1&2 Antibody Screen Negative 12/19/18 09:45 HIV P24 Antigen Negative 12/19/18 09:45 lab noted K+ pending Assessment: 12/20/18 09:16 opiate withdrawal sx 12/20/18 09:19 discuss medication assisted treatment program Plan: continue methadone detox regimen
[2018-12-20] MEDS ORDERED: POTASSIUM CHLORIDE TABS 20 MEQ TABLET.ER (FP) PO SCH (10:00)
[2018-12-20] MEDS ORDERED: METHADONE (DETOX) 20 MG, METHADONE (DETOX) 5 MG PO ONE (10:00)
[2018-12-20] MEDS ORDERED: DICYCLOMINE HCL 10 MG CAPSULE PO ONE (10:00)
[2018-12-20] MEDS: PRENATAL VITAMINS W/ FOLIC ACID TABLET (FP) PO SCH (10:29)
[2018-12-20] MEDS: FAMOTIDINE 20 MG TABLET PO SCH ×2 (10:31→22:17)
[2018-12-20] MEDS: NICOTINE 14 MG/24 HOURS TOPICAL PATCH TD SCH (10:32)
[2018-12-20] MEDS: POTASSIUM CHLORIDE TABS 20 MEQ TABLET.ER (FP) PO SCH ×2 (14:15→17:02)
[2018-12-20] MEDS: cloNIDine HCL 0.1 MG TABLET PO PRN (19:15)
[2018-12-20] MEDS: THIAMINE HCL 100 MG TABLET (FP) PO SCH (22:17)
[2018-12-21] MEDS ORDERED: METHADONE HCL 10 MG TABLET (FOR DETOX USE ONLY) PO ONE (10:00)
[2018-12-21] MEDS: FAMOTIDINE 20 MG TABLET PO SCH (10:12)
[2018-12-21] MEDS: NICOTINE 14 MG/24 HOURS TOPICAL PATCH TD SCH (10:12)
[2018-12-21] MEDS: PRENATAL VITAMINS W/ FOLIC ACID TABLET (FP) PO SCH (10:12)
[2018-12-21] MEDS ORDERED: ONDANSETRON *ODT* 4 MG TABLET SL PRN (10:43)
--- NOTE | 2018-12-21 10:44 | PN ---
S CIWA - CIWA Score Nausea/Vomitin Muscle Tremors: 1-None Visible, but [place] Anxiety: 1-Mildly Anxious Agitation: 1-Slight > Activity Paroxysmal Sweats: 2 Orientation: 0-Oriented Tacttile Disturbances: 2-Mild Itch/Numbness/Burn Auditory Disturbances: 0-None Visual Disturbances: 0-None Headache: 0-None Present CIWA-Ar Total Score: 10 BHS Progress Note (SOAP) Subjective: interrupted sleep, sweats , nausea, body aches Objective: 12/21/18 10:40 Vital Signs Temperature 98.4 F 12/21/18 09:22 Pulse Rate 76 12/21/18 09:22 Respiratory Rate 18 12/21/18 09:22 Blood Pressure 115/72 12/21/18 09:22 O2 Sat by Pulse Oximetry (%) Laboratory Tests 12/19/18 12/19/18 12/19/18 09:03 09:45 09:45 WBC 7.7 RBC 4.74 Hgb 13.2 Hct 40.4 D MCV 85.4 MCH 27.8 D MCHC 32.6 RDW 16.1 H Plt Count 355 MPV 8.2 Sodium 139 Potassium 2.9 L* Chloride 99 Carbon Dioxide 27 Anion Gap 12 BUN 16.0 Creatinine 1.5 H Est GFR (CKD-EPI)AfAm 45.30 Est GFR (CKD-EPI)NonAf 39.09 Random Glucose 233 H Calcium 9.4 Total Bilirubin 0.5 AST 9 L ALT 12 L Alkaline Phosphatase 103 Total Protein 7.4 Albumin 3.6 POC Urine HCG, Qual Negative RPR Titer HIV 1&2 Antibody Screen HIV P24 Antigen 12/19/18 12/19/18 12/20/18 09:45 09:45 08:00 WBC RBC Hgb Hct MCV MCH MCHC RDW Plt Count MPV Sodium Potassium 3.6 Chloride Carbon Dioxide Anion Gap BUN Creatinine Est GFR (CKD-EPI)AfAm Est GFR (CKD-EPI)NonAf Random Glucose Calcium Total Bilirubin AST ALT Alkaline Phosphatase Total Protein Albumin POC Urine HCG, Qual RPR Titer Nonreactive HIV 1&2 Antibody Screen Negative HIV P24 Antigen Negative pt aox3 lying in bed in nad Assessment: 12/21/18 10:41 withdrawal sx's hypokalemia corrected Plan: cont. detox increase fluids zofran prn
--- NOTE | 2018-12-21 10:47 | PN ---
BHS COWS - Scale Resting Pulse: 0= [place] 80 or Below Sweatin= Chills/Flushing Restless Observation: 1= Difficult to Sit Still Pupil Size: 1= Pupils >than Normal Bone or Joint Aches: 1= Mild Discomfort Runny Nose/ Eye Tearin= Nasal Congestion GI Upset > 30mins: 2= Nausea/Diarrhea Tremor Observation of Outstretched Hands: 1= Tremor [place], Not Seen Yawning Observation: 0= None Anxiety or Irritability: 1=Feels Anxious/Irritable Goose Flesh Skin: 0=Smooth Skin COWS Score: 9 BHS Progress Note (SOAP) Subjective: see previous note
[2018-12-21] MEDS: cloNIDine HCL 0.1 MG TABLET PO PRN ×2 (11:06→15:29)
[2018-12-21 13:53] VITALS: TEMP 98
[2018-12-21] MEDS: POTASSIUM CHLORIDE TABS 20 MEQ TABLET.ER (FP) PO SCH (14:26)
[2018-12-21 15:28] VITALS: BP 117/74; PULSE 70
--- NOTE | 2018-12-21 16:28 | HOSP ---
Subjective - Review of Symptoms Subjective: Called by nurse that patient wants to leave AMA. Patient voiced concerns to me that she was not given enough methadone to control her symptoms, and that she would rather go home instead of finishing her detox here (she is on day 3). She states she feels fine, only stating that she is very irritable and anxious. I explained to her risks of leaving which including further withdrawal symptoms, relapse, from overdose. The patient told me she does have a narcan kit at home. I advised her to keep it on her in case she uses again. Patient understood the risks of leaving and the benefits of staying to finish her detox. She voiced her understanding to me and decided to leave against medical advice. She informed me that she would call the ambulance if she had further symptoms of withdrawal or if she started to "become sick". Physical Examination Vital Signs: Vital Signs Temperature 98.0 F 12/21/18 13:52 Pulse Rate 70 12/21/18 15:27 Respiratory Rate 16 12/21/18 13:52 Blood Pressure 117/74 12/21/18 15:27 O2 Sat by Pulse Oximetry (%) Labs: CBC, BMP 12/19/18 09:45 12/20/18 08:00 Visit type - Emergency Visit Emergency Visit: No - New Patient This patient is new to me today: Yes Date on this admission: 12/21/18 - Critical Care Critical Care patient: No
--- NOTE | 2018-12-21 16:42 | DS ---
[facility] Detox Discharge Summary Admission Date: 12/19/18 Discharge Date: 12/21/18 - History Present History: Opioid Dependence Additional Comments: patient signed release ama,advise to call 911 f not feeling well Pertinent Past History: arthritis of right hip - Physical Exam Results Vital Signs: Vital Signs Temperature 98.0 F 12/21/18 13:52 Pulse Rate 70 12/21/18 15:27 Respiratory Rate 16 12/21/18 13:52 Blood Pressure 117/74 12/21/18 15:27 O2 Sat by Pulse Oximetry (%) Pertinent Admission Physical Exam Findings: withdrawal signs and symptom Laboratory Last Values WBC 7.7 K/mm3 (4.0-10.0) 12/19/18 09:45 RBC 4.74 M/mm3 (3.60-5.2) 12/19/18 09:45 Hgb 13.2 GM/dL (10.7-15.3) 12/19/18 09:45 Hct 40.4 % (32.4-45.2) D 12/19/18 09:45 MCV 85.4 fl (80-96) 12/19/18 09:45 MCH 27.8 pg (25.7-33.7) D 12/19/18 09:45 MCHC 32.6 g/dl (32.0-36.0) 12/19/18 09:45 RDW 16.1 % (11.6-15.6) H 12/19/18 09:45 Plt Count 355 K/MM3 (134-434) 12/19/18 09:45 MPV 8.2 fl (7.5-11.1) 12/19/18 09:45 Sodium 139 mmol/L (136-145) 12/19/18 09:45 Potassium 3.6 mmol/L (3.5-5.1) 12/20/18 08:00 Chloride 99 mmol/L (98-107) 12/19/18 09:45 Carbon Dioxide 27 mmol/L (21-32) 12/19/18 09:45 Anion Gap 12 MMOL/L (8-16) 12/19/18 09:45 BUN 16.0 mg/dL (7-18) 12/19/18 09:45 Creatinine 1.5 mg/dL (0.55-1.3) H 12/19/18 09:45 Est GFR (CKD-EPI)AfAm 45.30 12/19/18 09:45 Est GFR (CKD-EPI)NonAf 39.09 12/19/18 09:45 Random Glucose 233 mg/dL (74-106) H 12/19/18 09:45 Calcium 9.4 mg/dL (8.5-10.1) 12/19/18 09:45 Total Bilirubin 0.5 mg/dL (0.2-1) 12/19/18 09:45 AST 9 U/L (15-37) L 12/19/18 09:45 ALT 12 U/L (13-61) L 12/19/18 09:45 Alkaline Phosphatase 103 U/L (45-117) 12/19/18 09:45 Total Protein 7.4 g/dl (6.4-8.2) 12/19/18 09:45 Albumin 3.6 g/dl (3.4-5.0) 12/19/18 09:45 POC Urine HCG, Qual Negative 12/19/18 09:03 RPR Titer Nonreactive (NONREACTIVE) 12/19/18 09:45 HIV 1&2 Antibody Screen Negative 12/19/18 09:45 HIV P24 Antigen Negative 12/19/18 09:45 - Medication Discharge Medications: Ambulatory Orders Omeprazole 40 mg PO DAILY 06/04/18 Ferrous Sulfate [Iron] 325 mg PO DAILY 12/19/18 Folic Acid 1 mg PO DAILY 12/19/18 Meloxicam 15 mg PO DAILY 12/19/18 Quetiapine Fumarate [Seroquel -] 100 mg PO HS 12/19/18 Naloxone HCl [Narcan] 4 mg NS ASDIR PRN #1 spray 12/20/18 - Diagnosis (1) Opioid dependence with withdrawal Current Visit: Yes Status: Acute (2) Arthritis of right hip Current Visit: Yes Status: Chronic (3) GERD (gastroesophageal reflux disease) Current Visit: Yes Status: Chronic - AMA Did Patient Leave Against Medical Advice: Yes
[2018-12-22] MEDS ORDERED: METHADONE (DETOX) 10 MG, METHADONE (DETOX) 5 MG PO ONE (10:00)
[2018-12-23] MEDS ORDERED: METHADONE HCL 10 MG TABLET (FOR DETOX USE ONLY) PO ONE (10:00)
[2018-12-24] MEDS ORDERED: METHADONE HCL 5 MG TABLET (FOR DETOX USE ONLY) PO ONE (06:00)
== END 2018-12-21 16:49 | disposition left against medical advice (07) | DRG 770 ==
LOC: YASAS 08:24 → Y3N 09:29
PROVIDERS: ADMIT Allergy & Immunology; ATTEND Allergy & Immunology
PROC: HZ2ZZZZ Detoxification Services for Substance Abuse Treatment (ICD-10-PCS; principal; 2018-12-19)
DX: F11.23 Opioid dependence with withdrawal (principal); F10.230 Alcohol dependence with withdrawal, uncomplicated; F14.10 Cocaine abuse, uncomplicated; F17.210 Nicotine dependence, cigarettes, uncomplicated; F19.24 Other psychoactive substance dependence with psychoactive substance-induced mood disorder; K21.9 Gastro-esophageal reflux disease without esophagitis; M16.11 Unilateral primary osteoarthritis, right hip; E87.6 Hypokalemia; G47.00 Insomnia, unspecified; M41.9 Scoliosis, unspecified; R00.0 Tachycardia, unspecified; Z86.59 Personal history of other mental and behavioral disorders
CPT/HCPCS: 36415; 80053; 81025; 84132; 85027; 86593; 87389; J0735

== ENCOUNTER 2019-03-05 08:13 | Inpatient (IN) | payer OTHER ==
[2019-03-05 08:48] VITALS: BMI 20.6
--- NOTE | 2019-03-05 09:32 | HP ---
"COWS - Scale Resting Pulse: 1= [place] 81-100 Sweatin= No chills or Flushing Restless Observation: 0= Sits Still Pupil Size: 0= Normal to Room Light Bone or Joint Aches: 2= Severe Diffuse Aches Runny Nose/ Eye Tearin= Runny Nose/Eyes GI Upset > 30mins: 2= Nausea/Diarrhea Tremor Observation: 0= None Yawning Observation: 0= None Anxiety or Irritability: 1=Feels Anxious/Irritable Goose Flesh Skin: 0=Smooth Skin COWS Score: 8 CIWA Score - Admission Criteria OASAS Guidelines: Admission for Medically Managed Detox: Requires at least one of the followin. CIWA greater than 12 2. Seizures within the past 24 hours 3. Delirium tremens within the past 24 hours 4. Hallucinations within the past 24 hours 5. Acute intervention needed for co occurring medical disorder 6. Acute intervention needed for co occurring psychiatric disorder 7. Severe withdrawal that cannot be handled at a lower level of care (continued vomiting, continued diarrhea, abnormal vital signs) requiring intravenous medication and/or fluids 8. Admitting History and Physical - Past Medical History Gastrointestinal: Yes: GERD ...LMP: 11/25/14 (post menopausal) Psych: Yes: Anxiety, Depression - Smoking History Smoking history: Current every day smoker Have you smoked in the past 12 months: Yes Aproximately how many cigarettes per day: 20 - Alcohol/Substance Use Hx Alcohol Use: No History of Substance Use: reports: Cocaine, Heroin, Prescription, Tranquilizers - Social History ADL: Independent Occupation: [employer] History of Recent Travel: No Admission [facility] Allergies/Adverse Reactions: Allergies Allergy/AdvReac Type Severity Reaction Status Date / Time No Known Allergies Allergy Verified 03/05/19 08:40 History of Present Illness: This report was requested by: Chelsie Quintero | Reference #: [id number] Others' Prescriptions Patient Name: Loc Frazier Date: 1965 Address: [address] [place] [address] Sex: Female Rx Written Rx Dispensed Drug Quantity Days Supply Prescriber Name 02/26/2019 02/26/2019 alprazolam 2 mg tablet 60 30 Mac Henriquez MD 01/28/2019 01/28/2019 endocet 10-325 mg tablet 90 30 Ramakrishna García 01/23/2019 01/23/2019 alprazolam 2 mg tablet 60 30 HenriquezMac bedoya MD 12/25/2018 12/27/2018 endocet 10-325 mg tablet 90 30 García, Ramakrishna 12/26/2018 12/27/2018 alprazolam 2 mg tablet 60 30 HenriquezMac MD 11/28/2018 12/01/2018 alprazolam 2 mg tablet 60 30 HenriquezMac MD 11/28/2018 11/28/2018 endocet 10-325 mg tablet 90 30 García, Ramakrishna 10/30/2018 10/30/2018 endocet 10-325 mg tablet 90 30 Patrick, Verenice, N Patient Name: Loc Frazier Date: 1965 Address: [address] [place] [address] Sex: Female Rx Written Rx Dispensed Drug Quantity Days Supply Prescriber Name 10/03/2018 10/03/2018 alprazolam 2 mg tablet 60 30 HenriquezMac bedoya MD 09/27/2018 09/27/2018 oxycodone-acetaminophen 10-325 mg tab 90 30 García, Ramakrishna 09/19/2018 09/19/2018 alprazolam 1 mg tablet 15 15 HenriquezMac MD 09/05/2018 09/05/2018 alprazolam 2 mg tablet 30 30 HenriquezMac MD 08/29/2018 08/29/2018 oxycodone-acetaminophen 10-325 mg tab 90 30 García, Ramakrishna 07/31/2018 07/31/2018 oxycodone-acetaminophen 10-325 mg tab 90 30 García, Ramakrishna 07/12/2018 07/12/2018 oxycodone-acetaminophen 5-325 mg tablet 69 23 Rula Bradley M, MSN, [employer]-, 07/03/2018 07/04/2018 oxycodone-acetaminophen 5-325 mg tablet 21 7 Ramakrishna García pt here requesting detox from heroin use , reports 6 bags via inhalation , latest use yesterday . cocaine : 60 $ /day denies MMTP bup - reports from GF tobacco : 1/ ppd . etoh : 1-2 nips , not daily PMHX : r hip OA P THR , chronic pain states was d/c from prescriber 2/2 + UTOX , GERD PSHX C-sx PSych : depression, anxiety , denies SI / HI Exam Limitations: No Limitations - Ebola screening Have you traveled outside of the country in the last 21 days: No Have you had contact with anyone from an Ebola affected area: No - Review of Systems Constitutional: Loss of Appetite EENT: reports: Other (glasses - reading denies dysphagia) Respiratory: reports: Cough, Productive cough, Other (states was dx w/ bronchitis and was given ALbuterol inhaler) Cardiac: reports: No Symptoms Reported GI: reports: Nausea, Poor Appetite : reports: No Symptoms Reported Musculoskeletal: reports: Joint Pain (chronic R hip pain) Integumentary: reports: No Symptoms Reported Neuro: reports: Unsteady Gait (uses cane for ambulation) Endocrine: reports: No Symptoms Reported Psychiatric: reports: Orientated x3 Patient History - Patient Medical History Hx Anemia: Yes (no med) Hx Asthma: No Hx Chronic Obstructive Pulmonary Disease (COPD): No Hx Cancer: No Hx Cardiac Disorders: No Hx Congestive Heart Failure: No Hx Hypertension: No Hx Hypercholesterolemia: No Hx Pacemaker: No HX Cerebrovascular Accident: No Hx Seizures: No Hx Dementia: No Hx Diabetes: No Hx Gastrointestinal Disorders: Yes (Hx of GERD) Hx Liver Disease: No Hx Genitourinary Disorders: No Hx Sexually Transmitted Disorders: No Hx Renal Disease (ESRD): No Hx Thyroid Disease: No Hx Human Immunodeficiency Virus (HIV): No (2018 negative) Hx Hepatitis C: No Hx Depression: Yes Hx Suicide Attempt: No Hx Bipolar Disorder: No Hx Schizophrenia: No - Patient Surgical History Past Surgical History: Yes Hx Section: Yes (x1 22 yers ago) - PPD History Date: 06/06/18 Results: negative - Reproductive History Last Menstrual Period: 11/25/14 (post menopausal) - Smoking Cessation Smoking history: Current every day smoker Have you smoked in the past 12 months: Yes Aproximately how many cigarettes per day: 20 Cigars Per Day: 0 Hx Chewing Tobacco Use: No Initiated information on smoking cessation: Yes 'Breaking Loose' booklet given: 03/05/19 - Substances abused Heroin Substance route: Inhalation Frequency: Daily Amount used: 6 BAGS Age of first use: 20 Date of last use: 03/04/19 Alcohol Substance route: Oral Frequency: 1-2 times per week Age of first use: 49 Date of last use: 06/03/18 Crack Substance route: Smoking Frequency: Daily Amount used: $60 Age of first use: 20 Date of last use: 03/04/19 PCP Substance route: Smoking Frequency: 1-3 times last 30 days Amount used: 1 bag Age of first use: 53 Date of last use: 03/04/19 Admission Physical Exam BHS - Vital Signs Vital Signs: Vital Signs - 24 hr 03/05/19 08:42 Temperature 97.1 F L Pulse Rate 83 Respiratory 20 Rate Blood Pressure 126/77 - Physical General Appearance: Yes: No Apparent Distress HEENTM: Yes: EOMI, Hearing grossly Normal, Normocephalic, Nasal Congestion, Rhinorrhea, Muffled/Hoarse Voice, Other (upper and lower dentures) Respiratory: Yes: Chest Non-Tender, Lungs Clear, Normal Breath Sounds, No Respiratory Distress, No Accessory Muscle Use Cardiology: Yes: Regular Rhythm, Regular Rate, S1, S2, Other (QTc 449 ms 06/04/18 ) Abdominal: Yes: Non Tender, Soft Musculoskeletal: Yes: Joint Stiffness (right hip) Extremities: Yes: Non-Tender Neurological: Yes: Fully Oriented, Alert Integumentary: Yes: Warm - Diagnostic (1) Opioid dependence with intoxication Current Visit: Yes Status: Chronic Qualifiers: Complication of substance-induced condition: uncomplicated Qualified Code(s ): F11.220 - Opioid dependence with intoxication, uncomplicated (2) Nicotine dependence Current Visit: Yes Status: Chronic Qualifiers: Nicotine product type: cigarettes Breathalyzer - Breathalyzer Breathalyzer: 0 POC Urine test - Test device test lot number: [id number] Expiration date: 10/21/19 - Control test control: Yes Urine Drug Screen - Test Device Lot number: [id number] Expiration date: 09/19/20 - Control Is test valid?: Yes - Results Drug screen NEGATIVE: No Urine drug screen results: DEYVI-Cocaine, FEN-Fentanyl, MOP-Opiates, BUP-Suboxone Inpatient Rehab Admission - Rehab Decision to Admit Inpatient rehab admission?: No"
[2019-03-05] MEDS ORDERED: METHOCARBAMOL 500 MG TABLET PO PRN (09:39)
[2019-03-05] MEDS ORDERED: BISMUTH SUBSALICYLATE 262 MG/15 ML BTL PO PRN (09:39)
[2019-03-05] MEDS ORDERED: MAGNESIUM CITRATE 300 ML BOTTLE PO PRN (09:39)
[2019-03-05] MEDS ORDERED: MAGNESIUM HYDROX 2400MG/30ML ORAL SUSPENSION 30 ML CUP PO PRN (09:39)
[2019-03-05] MEDS ORDERED: NICOTINE POLACRILEX 2 MG GUM BUC PRN (09:39)
[2019-03-05] MEDS ORDERED: hydrOXYzine PAMOATE 25 MG CAPSULE (FP) PO PRN (09:39)
[2019-03-05] MEDS ORDERED: IBUPROFEN 400 MG TABLET (FP) PO PRN (09:39)
[2019-03-05] MEDS ORDERED: MAG HYDROX/AL HYDROX/SIMETH 30 ML UNIT-DOSE CUP PO PRN (09:39)
[2019-03-05] MEDS ORDERED: MELATONIN 5 MG TABLETS PO PRN (09:39)
[2019-03-05] MEDS ORDERED: ACETAMINOPHEN 325 MG TABLET (FP) PO PRN (09:39)
[2019-03-05] MEDS ORDERED: MENTHOL/PHENOL 1 EACH UD MM PRN (09:39)
[2019-03-05] MEDS ORDERED: cloNIDine HCL 0.1 MG TABLET PO PRN (09:41)
[2019-03-05] MEDS ORDERED: guaiFENesin 200 MG/10 ML 10 ML UNIT-DOSE CUPS PO PRN (09:44)
[2019-03-05] MEDS ORDERED: ALBUTEROL SO4 HFA INHALER IH PRN (09:45)
[2019-03-05] MEDS ORDERED: METHADONE HCL 10 MG TABLET (FOR DETOX USE ONLY) PO ONE (10:25)
[2019-03-05] MEDS: PRENATAL VITAMINS W/ FOLIC ACID TABLET (FP) PO SCH (10:54)
[2019-03-05] MEDS: PANTOPRAZOLE 40 MG TABLET PO SCH (10:54)
--- NOTE | 2019-03-05 12:30 | CONSULT ---
[facility] Psychiatric Consult - Data Date of interview: 03/05/19 Admission source: [facility] Identifying data: Revisit to [facility] and admission to [address] [place] [address] for this 53 y/o AA female self-referred for detoxification. RIP issues : alcohol, cocaine, heroin, nicotine. Patient is single, a mother of three, domiciled (lives with friends), unemployed and deprived of any source of income. Substance Abuse History: Discussed with the patient. Details in current [facility] report as follows : Smoking history: Current every day smoker. Have you smoked in the past 12 months: Yes. Aproximately how many cigarettes per day: 20. Cigars Per Day: 0. Hx Chewing Tobacco Use: No. Initiated information on smoking cessation: Yes. 'Breaking Loose' booklet given: 03/05/19. - Substances abused. Heroin. Substance route: Inhalation. Frequency: Daily. Amount used: 6 BAGS. Age of first use: 20. Date of last use: 03/04/19. Alcohol. Substance route: Oral. Frequency: 1-2 times per week. Age of first use: 49. Date of last use: 06/03/18. Crack. Substance route: Smoking. Frequency: Daily. Amount used: $60. Age of first use: 20. Date of last use: 03/04/19. PCP. Substance route: Smoking. Frequency: 1-3 times last 30 days. Amount used: 1 bag. Age of first use: 53. Date of last use: 03/04/19 Medical History: Medical profile is significant for anemia, GERD, scoliosis, arthritis of right hip and a history of two sections. Psychiatric History: Patient denies history of psychiatric hospitalizations. She sees a private psychiatrist, Dr Henriquez, for medication management (xanax + seroquel). Reportedly diagnosed with MDD and Anxiety Disorder. Ms Frazier states that her next appointment with Dr Henriquez is scheduled for 03/26/19. Patient denies history of suicide attempts. Physical/Sexual Abuse/Trauma History: Patient denies history of abuse. Additional Comment: Urine drug screen results: DEYVI-Cocaine, FEN-Fentanyl, MOP- Opiates, BUP-Suboxone. Noted. Mental Status Exam - Mental Status Exam Alert and Oriented to: Time, Place, Person Cognitive Function: Good Patient Appearance: Well Groomed (thin habitus, small stature) Mood: Hopeful Affect: Appropriate, Normal Range Patient Behavior: Fatigued, Appropriate, Cooperative Speech Pattern: Clear, Appropriate Voice Loudness: Normal Thought Process: Intact, Goal Oriented Thought Disorder: Not Present Hallucinations: Denies Suicidal Ideation: Denies Homicidal Ideation: Denies Insight/Judgement: Poor Sleep: Poorly, Difficulty falling asleep Appetite: Good Gait/Station: Normal Psychiatric Findings - Problem List ([place] 1, 2,3) (1) Alcohol dependence with uncomplicated withdrawal Current Visit: Yes Status: Acute (2) Opioid dependence with withdrawal Current Visit: Yes Status: Acute (3) Cocaine abuse Current Visit: Yes Status: Chronic (4) Nicotine dependence Current Visit: Yes Status: Chronic Qualifiers: Nicotine product type: cigarettes (5) Substance induced mood disorder Current Visit: Yes Status: Chronic (6) Insomnia Current Visit: Yes Status: Chronic Qualifiers: Insomnia type: unspecified Qualified Code(s): G47.00 - Insomnia, unspecified - Initial Treatment Plan Initial Treatment Plan: Psychoeducation. Sleep hygiene. Detoxification. AA/NA meetings. Resumed : seroquel 100 mg po hs (patient's specific request). Side effects/benefits discussed with the patient. Informed consent (verbal) is obtained from patient. Observation.
[2019-03-05] MEDS: THIAMINE HCL 100 MG TABLET (FP) PO SCH (22:18)
[2019-03-05] MEDS: QUEtiapine FUMARATE 100 MG TABLET (FP) PO SCH (22:18)
[2019-03-06 09:42] LABS: HEMATOCRIT 38.3 % (32.4-45.2); HEMOGLOBIN 12.8 GM/dL (10.7-15.3); MCH 28.5 pg (25.7-33.7); MCHC 33.6 g/dl (32.0-36.0); MEAN CELL VOLUME 84.8 fl (80-96); MEAN PLT VOLUME 8.2 fl (7.5-11.1); PLATELET COUNT 309 K/MM3 (134-434); RBC 4.51 M/mm3 (3.60-5.2); RDW 14.5 % (11.6-15.6); WHITE BLOOD COUNT 5.7 K/mm3 (4.0-10.0)
[2019-03-06 09:49] LABS: ALBUMIN 3.2 g/dl (3.4-5.0); BILIRUBIN,TOTAL 0.2 mg/dL (0.2-1); BLOOD UREA NITROGEN 8.3 mg/dL (7-18); CALCIUM 8.8 mg/dL (8.5-10.1); CREATININE 0.9 mg/dL (0.55-1.3); TOT PROT 6.6 g/dl (6.4-8.2)
[2019-03-06] MEDS ORDERED: METHADONE HCL 5 MG TABLET (FOR DETOX USE ONLY) PO ONE (10:00)
[2019-03-06] MEDS: PANTOPRAZOLE 40 MG TABLET PO SCH (10:24)
[2019-03-06] MEDS: PRENATAL VITAMINS W/ FOLIC ACID TABLET (FP) PO SCH (10:24)
--- NOTE | 2019-03-06 13:38 | PN ---
BHS COWS - Scale Resting Pulse: 0= NM 80 or Below Sweatin= Chills/Flushing Restless Observation: 1= Difficult to Sit Still Pupil Size: 1= Pupils >than Normal Bone or Joint Aches: 1= Mild Discomfort Runny Nose/ Eye Tearin= Nasal Congestion GI Upset > 30mins: 1= Stomach Cramp Tremor Observation of Outstretched Hands: 0= None Yawning Observation: 0= None Anxiety or Irritability: 1=Feels Anxious/Irritable Goose Flesh Skin: 0=Smooth Skin COWS Score: 7 BHS Progress Note (SOAP) Subjective: interrupted sleep, sweats Objective: 03/06/19 13:40 Vital Signs Temperature 97.9 F 03/06/19 13:15 Pulse Rate 72 03/06/19 13:15 Respiratory Rate 16 03/06/19 13:15 Blood Pressure 129/81 03/06/19 13:15 O2 Sat by Pulse Oximetry (%) Laboratory Tests 03/05/19 03/06/19 03/06/19 09:14 08:10 08:10 WBC 5.7 RBC 4.51 Hgb 12.8 Hct 38.3 MCV 84.8 MCH 28.5 MCHC 33.6 RDW 14.5 Plt Count 309 MPV 8.2 Sodium 142 Potassium 3.0 L Chloride 104 Carbon Dioxide 34 H Anion Gap 4 L BUN 8.3 Creatinine 0.9 Est GFR (CKD-EPI)AfAm 84.01 Est GFR (CKD-EPI)NonAf 72.49 Random Glucose 114 H Calcium 8.8 Total Bilirubin 0.2 AST 8 L ALT 12 L Alkaline Phosphatase 91 Total Protein 6.6 Albumin 3.2 L POC Urine HCG, Qual Negative pt aox3 in nad lying in bed Assessment: 03/06/19 13:41 withdrawal sx's hypokalemia Plan: cont. detox increase fluids kcl 40meg x 3 doses
[2019-03-06] MEDS: POTASSIUM CHLORIDE ORAL LIQUID 20 MEQ/15 ML PO SCH ×3 (14:59→22:23)
[2019-03-06] MEDS: THIAMINE HCL 100 MG TABLET (FP) PO SCH (22:23)
[2019-03-06] MEDS: QUEtiapine FUMARATE 100 MG TABLET (FP) PO SCH (22:23)
[2019-03-07] MEDS ORDERED: METHADONE HCL 10 MG TABLET (FOR DETOX USE ONLY) PO ONE (10:00)
[2019-03-07] MEDS: PRENATAL VITAMINS W/ FOLIC ACID TABLET (FP) PO SCH (10:22)
[2019-03-07] MEDS: PANTOPRAZOLE 40 MG TABLET PO SCH (10:22)
[2019-03-07] MEDS ORDERED: LOPERAMIDE HCL 2 MG CAPSULE PO ONE (11:47)
--- NOTE | 2019-03-07 11:50 | PN ---
BHS COWS - Scale Resting Pulse: 0= NM 80 or Below Sweatin= No chills or Flushing Restless Observation: 0= Sits Still Pupil Size: 1= Pupils >than Normal Bone or Joint Aches: 1= Mild Discomfort Runny Nose/ Eye Tearin= None GI Upset > 30mins: 2= Nausea/Diarrhea Tremor Observation of Outstretched Hands: 1= Tremor [place], Not Seen Yawning Observation: 0= None Anxiety or Irritability: 1=Feels Anxious/Irritable Goose Flesh Skin: 0=Smooth Skin COWS Score: 6 BHS Progress Note (SOAP) Subjective: 53 years old female admitted on 03/05/19 for opiate withdrawal sx management treating with methadone detox regimen ambulating with cane steady gait reports loose stool after breakfast imodium 4 mg po x 1 ensure supplement Objective: 03/07/19 11:50 Vital Signs Temperature 97.6 F 03/07/19 09:07 Pulse Rate 74 03/07/19 09:07 Respiratory Rate 16 03/07/19 09:07 Blood Pressure 137/86 03/07/19 09:07 O2 Sat by Pulse Oximetry (%) Laboratory Last Values WBC 5.7 K/mm3 (4.0-10.0) 03/06/19 08:10 RBC 4.51 M/mm3 (3.60-5.2) 03/06/19 08:10 Hgb 12.8 GM/dL (10.7-15.3) 03/06/19 08:10 Hct 38.3 % (32.4-45.2) 03/06/19 08:10 MCV 84.8 fl (80-96) 03/06/19 08:10 MCH 28.5 pg (25.7-33.7) 03/06/19 08:10 MCHC 33.6 g/dl (32.0-36.0) 03/06/19 08:10 RDW 14.5 % (11.6-15.6) 03/06/19 08:10 Plt Count 309 K/MM3 (134-434) 03/06/19 08:10 MPV 8.2 fl (7.5-11.1) 03/06/19 08:10 Sodium 142 mmol/L (136-145) 03/06/19 08:10 Potassium 3.0 mmol/L (3.5-5.1) L 03/06/19 08:10 Chloride 104 mmol/L (98-107) 03/06/19 08:10 Carbon Dioxide 34 mmol/L (21-32) H 03/06/19 08:10 Anion Gap 4 MMOL/L (8-16) L 03/06/19 08:10 BUN 8.3 mg/dL (7-18) 03/06/19 08:10 Creatinine 0.9 mg/dL (0.55-1.3) 03/06/19 08:10 Est GFR (CKD-EPI)AfAm 84.01 03/06/19 08:10 Est GFR (CKD-EPI)NonAf 72.49 03/06/19 08:10 Random Glucose 114 mg/dL (74-106) H 03/06/19 08:10 Calcium 8.8 mg/dL (8.5-10.1) 03/06/19 08:10 Total Bilirubin 0.2 mg/dL (0.2-1) 03/06/19 08:10 AST 8 U/L (15-37) L 03/06/19 08:10 ALT 12 U/L (13-61) L 03/06/19 08:10 Alkaline Phosphatase 91 U/L (45-117) 03/06/19 08:10 Total Protein 6.6 g/dl (6.4-8.2) 03/06/19 08:10 Albumin 3.2 g/dl (3.4-5.0) L 03/06/19 08:10 POC Urine HCG, Qual Negative 03/05/19 09:14 lab noted Low K+ 03/07/19 11:52 K+ supplement 40 + 20 meq repeat K+ on 03/08/19 Assessment: 03/07/19 11:53 opiate withdrawal Plan: methadone regimen
[2019-03-07] MEDS ORDERED: POTASSIUM CHLORIDE ORAL LIQUID 20 MEQ/15 ML PO ONE ×2 (12:30→16:30)
[2019-03-07] MEDS: ACETAMINOPHEN 325 MG TABLET (FP) PO PRN ×2 (13:59→22:07)
[2019-03-07] MEDS: QUEtiapine FUMARATE 100 MG TABLET (FP) PO SCH (22:04)
[2019-03-07] MEDS: THIAMINE HCL 100 MG TABLET (FP) PO SCH (22:04)
[2019-03-08] MEDS ORDERED: METHADONE HCL 5 MG TABLET (FOR DETOX USE ONLY) PO ONE (06:00)
--- NOTE | 2019-03-08 08:40 | DS ---
[facility] Detox Discharge Summary Admission Date: 03/05/19 Discharge Date: 03/08/19 - History Present History: Alcohol Dependence, Cocaine Dependence, Opioid Dependence - Physical Exam Results Vital Signs: Vital Signs Temperature 97.0 F L 03/08/19 06:58 Pulse Rate 90 03/08/19 06:58 Respiratory Rate 18 03/08/19 06:58 Blood Pressure 138/96 03/08/19 06:58 O2 Sat by Pulse Oximetry (%) - Treatment Hospital Course: Detox Protocol Followed, Detoxed Safely, Responded well, Discharged Condition Good - Medication Discharge Medications: Ambulatory Orders Omeprazole 40 mg PO DAILY 06/04/18 Ferrous Sulfate [Iron] 325 mg PO DAILY 12/19/18 Folic Acid 1 mg PO DAILY 12/19/18 Meloxicam 15 mg PO DAILY 12/19/18 Quetiapine Fumarate [Seroquel -] 100 mg PO HS 12/19/18 Naloxone HCl [Narcan] 4 mg NS ASDIR PRN #1 spray 12/20/18 - Diagnosis (1) Alcohol dependence with uncomplicated withdrawal Current Visit: Yes Status: Chronic (2) Opioid dependence with withdrawal Current Visit: Yes Status: Chronic (3) Cocaine abuse Current Visit: Yes Status: Chronic (4) Nicotine dependence Current Visit: Yes Status: Chronic Qualifiers: Nicotine product type: cigarettes - AMA Did Patient Leave Against Medical Advice: No
[2019-03-08 09:25] VITALS: BP 122/78; PULSE 83; TEMP 97.2
== END 2019-03-08 09:44 | disposition home or self-care (01) | DRG 773 ==
LOC: YASAS 08:13 → Y3N 10:24
PROVIDERS: ADMIT Allergy & Immunology; ATTEND Allergy & Immunology
PROC: HZ2ZZZZ Detoxification Services for Substance Abuse Treatment (ICD-10-PCS; principal; 2019-03-05)
DX: F10.230 Alcohol dependence with withdrawal, uncomplicated (principal); F11.23 Opioid dependence with withdrawal; F14.20 Cocaine dependence, uncomplicated; F16.10 Hallucinogen abuse, uncomplicated; F17.210 Nicotine dependence, cigarettes, uncomplicated; E87.6 Hypokalemia; G47.00 Insomnia, unspecified; D64.9 Anemia, unspecified; M41.9 Scoliosis, unspecified; M16.11 Unilateral primary osteoarthritis, right hip
CPT/HCPCS: 36415; 80053; 81025; 84132; 85027

== ENCOUNTER 2019-11-13 13:18 | Inpatient (IN) | payer OTHER ==
--- NOTE | 2019-11-13 13:40 | BHS.RME ---
Substance Use & Tx History - Substance Use History Heroin Substance amount: 2 bags Substance route: Inhalation (ex: sniffing or snorting) Date of Last Use: 11/13/19 (started age 20) Xanax Substance amount: 2mg- 2 tabs Frequency of use: Daily Substance route: Oral Date of Last Use: 11/12/19 Nicotine Substance amount: 6 ciggs Frequency of use: Daily Substance route: Smoking Date of Last Use: 11/13/19 Physical/Psych/Mental Status - Behavior General Behavior: Increased activity (restlessness, agitation) Eye Contact: Normal - Cooperativeness Cooperativeness: Cooperative - Thinking Thought Processes: Tight, Logical, Goal Directed - Physical Health Problems Is patient presently having any pain?: No Does patient presently have any injuries (include location): No Does patient currently have a fever: No Is patient : No CIWA Nausea/Vomitin-Mild Nausea/No Vomiting Muscle Tremors: 3 Anxiety: 3 Agitation: 3 Paroxysmal Sweats: 2 Orientation: 1-Uncertain about Date Tacttile Disturbances: 0-None Auditory Disturbances: 0-None Visual Disturbances: 0-None Headache: 0-None Present CIWA-Ar Total Score: 13
[2019-11-13 15:39] VITALS: BMI 25.8
[2019-11-13] MEDS ORDERED: METHADONE HCL 10 MG TABLET PO SCH (16:30)
--- NOTE | 2019-11-13 18:31 | HP ---
<Clarisa Mcclure - Last Filed: 11/13/19 18:38> CIWA Score Nausea/Vomitin-Mild Nausea/No Vomiting Muscle Tremors: 3 Anxiety: 3 Agitation: 3 Paroxysmal Sweats: 2 Orientation: 1-Uncertain about Date Tacttile Disturbances: 0-None Auditory Disturbances: 0-None Visual Disturbances: 0-None Headache: 0-None Present CIWA-Ar Total Score: 13 - Admission Criteria OASAS Guidelines: Admission for Medically Managed Detox: Requires at least one of the followin. CIWA greater than 12 2. Seizures within the past 24 hours 3. Delirium tremens within the past 24 hours 4. Hallucinations within the past 24 hours 5. Acute intervention needed for co occurring medical disorder 6. Acute intervention needed for co occurring psychiatric disorder 7. Severe withdrawal that cannot be handled at a lower level of care (continued vomiting, continued diarrhea, abnormal vital signs) requiring intravenous medication and/or fluids 8. Admitting History and Physical - Admission Chief Complaint: 54 yo F presenting for admission to rehab for opioid use; "heroin rehab." History of Present Illness: 54 yo F presenting for admission to rehab for opioid use; "heroin rehab." Pt was here in June and completed detox. Pt is part of [facility] methadone program; reports methadone 90 daily. PMH - GERD (omeprazole 40 mg), pt reports "broken hip" - sees pain management (reports 1 more dose of decadron; also gabapentin and naproxen) PSH - (1995) Psych - anxiety/depression (lexapro, seroquel) Soc/Domiciled - homeless - "between places" Legal - none - Substance Use History Heroin Substance amount: 2 bags Substance route: Inhalation (ex: sniffing or snorting) Date of Last Use: 11/13/19 (started age 20) Xanax Substance amount: 2mg- 2 tabs Frequency of use: Daily Substance route: Oral Date of Last Use: 11/12/19 Nicotine Substance amount: 6 ciggs Frequency of use: Daily Substance route: Smoking Date of Last Use: 11/13/19 History Source: Patient Limitations to Obtaining History: No Limitations - Past Medical History Gastrointestinal: Yes: GERD ...LMP: 11/25/14 Psych: Yes: Anxiety, Depression - Smoking History Smoking history: Current every day smoker Have you smoked in the past 12 months: Yes Aproximately how many cigarettes per day: 6 - Alcohol/Substance Use Hx Alcohol Use: No History of Substance Use: reports: Cocaine, Heroin, Prescription, Tranquilizers - Social History ADL: Independent Occupation: Cook History of Recent Travel: No Admission ROS [facility] Allergies/Adverse Reactions: Allergies Allergy/AdvReac Type Severity Reaction Status Date / Time No Known Allergies Allergy Verified 11/14/19 10:03 - Ebola screening Have you traveled outside of the country in the last 21 days: No Have you been sick,other than usual withdrawal symptoms: No Do you have a fever: No - Review of Systems Constitutional: Weight Stable Respiratory: reports: No Symptoms reported Cardiac: reports: No Symptoms Reported GI: reports: No Symptoms Reported : reports: No Symptoms Reported Musculoskeletal: reports: Joint Pain (R hip pain - reports "broken hip" for 2-3 years;) Integumentary: reports: No Symptoms Reported Neuro: reports: No Symptoms reported Endocrine: reports: No Symptoms Reported Hematology: reports: No Symptoms Reported Psychiatric: reports: Orientated x3 (so SI/HI) Patient History - Patient Medical History Hx Anemia: Yes (no med) Hx Asthma: No Hx Chronic Obstructive Pulmonary Disease (COPD): No Hx Cancer: No Hx Cardiac Disorders: No Hx Congestive Heart Failure: No Hx Hypertension: No Hx Hypercholesterolemia: No Hx Pacemaker: No HX Cerebrovascular Accident: No Hx Seizures: No Hx Dementia: No Hx Diabetes: No Hx Gastrointestinal Disorders: Yes (Hx of GERD) Hx Liver Disease: No Hx Genitourinary Disorders: No Hx Sexually Transmitted Disorders: No Hx Renal Disease (ESRD): No Hx Thyroid Disease: No Hx Human Immunodeficiency Virus (HIV): No (2018 negative) Hx Hepatitis C: No Hx Depression: Yes Hx Suicide Attempt: No Hx Bipolar Disorder: No Hx Schizophrenia: No - Patient Surgical History Past Surgical History: Yes Hx Neurologic Surgery: No Hx Cataract Extraction: No Hx Cardiac Surgery: No Hx Lung Surgery: No Hx Breast Surgery: No Hx Breast Biopsy: No Hx Abdominal Surgery: No Hx Appendectomy: No Hx Cholecystectomy: No Hx Genitourinary Surgery: No Hx Section: Yes (x1 22 yers ago) Hx Orthopedic Surgery: No (PT states she will be getting unilateral hip replacement) Anesthesia Reaction: No - PPD History Previous Implant?: Yes Documented Results: Negative w/proof Date: 07/10/19 Results: negative - Reproductive History Last Menstrual Period: 11/25/14 - Smoking Cessation Smoking history: Current every day smoker Have you smoked in the past 12 months: Yes Aproximately how many cigarettes per day: 6 Cigars Per Day: 0 Hx Chewing Tobacco Use: No Initiated information on smoking cessation: Yes 'Breaking Loose' booklet given: 11/13/19 - Substances abused Alprazolam (Xanax) Substance route: Oral Frequency: 1-2 times per week Amount used: 2-3 PILLS Age of first use: 20 Date of last use: 11/11/19 Heroin Substance route: Inhalation Frequency: 1-3 times last 30 days Amount used: 2 BAGS Age of first use: 20 Date of last use: 11/13/19 Admission Physical Exam [facility] - Vital Signs Vital Signs: Vital Signs - 24 hr 11/13/19 15:26 Temperature 96.7 F L Pulse Rate 81 Respiratory 16 Rate Blood Pressure 135/79 - Physical General Appearance: Yes: No Apparent Distress, Nourished, Appropriately Dressed HEENTM: Yes: EOMI, Hearing grossly Normal, Normocephalic, Normal Voice Respiratory: Yes: Lungs Clear, Normal Breath Sounds, No Respiratory Distress, No Accessory Muscle Use Neck: Yes: Supple, Trachea in good position Breast: Yes: Breast Exam Deferred Cardiology: Yes: Regular Rhythm, Regular Rate Abdominal: Yes: Normal Bowel Sounds, Non Tender, Flat, Soft Genitourinary: Yes: Other (deferred) Back: Yes: Normal Inspection Musculoskeletal: Yes: Gait Steady Extremities: Yes: Normal Inspection, Non-Tender Neurological: Yes: Fully Oriented, Alert, Motor Strength 5/5 Integumentary: Yes: Normal Color, Dry, Warm Cleared for Admission [facility] - Detox or Rehab [facility] Level of Care: Medically Supervised Claeared for Rehab Admission: Yes Breathalyzer - Breathalyzer Breathalyzer: 0 POC Urine test - Test device test lot number: [id number] Expiration date: 10/21/19 - Control test control: Yes Urine Drug Screen - Test Device Lot number: [id number] Expiration date: 05/28/21 - Control Is test valid?: Yes - Results Drug screen NEGATIVE: No Urine drug screen results: MOP-Opiates, MTD-Methadone, BZO-Benzodiazepines Inpatient Rehab Admission - Rehab Decision to Admit Inpatient rehab admission?: Yes - Initial Determination Are CD services needed?: Yes Free of communicable disease: Yes Not in need of hospitalization: Yes - Rehab Admission Criteria Previous failed treatment: Yes Poor recovery environment: Yes Comorbidities: Yes Lacks judgement: Yes Patient is meeting Inpatient Rehab admission criteria:: Yes <Rochelle Saha - Last Filed: 11/14/19 11:55> CIWA Score - Admission Criteria OASAS Guidelines: Admission for Medically Managed Detox: Requires at least one of the followin. CIWA greater than 12 2. Seizures within the past 24 hours 3. Delirium tremens within the past 24 hours 4. Hallucinations within the past 24 hours 5. Acute intervention needed for co occurring medical disorder 6. Acute intervention needed for co occurring psychiatric disorder 7. Severe withdrawal that cannot be handled at a lower level of care (continued vomiting, continued diarrhea, abnormal vital signs) requiring intravenous medication and/or fluids 8. Admitting History and Physical - Admission History of Present Illness: Pt initially screened and CIWA 13, pt reevaluated several hours later and CIWA decreasing to 8. Pt states she has not taken any benzo in 2 days. Pt appropriate for Rehab admission. Stat COVID ordered. Admission Physical Exam [facility] - Vital Signs Vital Signs: Vital Signs - 24 hr 11/13/19 11/13/19 11/14/19 15:26 20:35 06:39 Temperature 96.7 F L 98.4 F 97.6 F Pulse Rate 81 71 82 Respiratory 16 18 18 Rate Blood Pressure 135/79 153/83 134/79 O2 Sat by Pulse 95 95 Oximetry (%)
[2019-11-13] MEDS ORDERED: METHADONE 80 MG, METHADONE 10 MG PO SCH (18:45)
[2019-11-13] MEDS ORDERED: IBUPROFEN 400 MG TABLET (FP) PO PRN (18:52)
[2019-11-13] MEDS ORDERED: guaiFENesin 200 MG/10 ML 10 ML UNIT-DOSE CUPS PO PRN (18:52)
[2019-11-13] MEDS ORDERED: P-EPHED 60MG/TRIPROLIDI 2.5MG TABLET PO PRN (18:52)
[2019-11-13] MEDS ORDERED: MAGNESIUM HYDROX 2400MG/30ML ORAL SUSPENSION 30 ML CUP PO PRN (18:52)
[2019-11-13] MEDS ORDERED: ACETAMINOPHEN 325 MG TABLET (FP) PO PRN (18:52)
[2019-11-13] MEDS ORDERED: NICOTINE POLACRILEX 2 MG GUM BC PRN (18:52)
[2019-11-13] MEDS ORDERED: MAGNESIUM CITRATE 300 ML BOTTLE PO PRN (18:52)
[2019-11-13] MEDS ORDERED: LOPERAMIDE HCL 2 MG CAPSULE PO PRN (18:52)
[2019-11-13] MEDS: NICOTINE 14 MG/24 HOURS TOPICAL PATCH TD SCH (19:44)
[2019-11-13] MEDS ORDERED: METHADONE HCL 40 MG DISPERSABLE TABLET ONE (19:49)
[2019-11-13] MEDS ORDERED: METHADONE HCL 10 MG TABLET ONE (19:49)
[2019-11-13] MEDS: METHADONE 80 MG, METHADONE 10 MG PO SCH (19:50)
[2019-11-13] MEDS ORDERED: DEXAMETHASONE 4 MG TABLET (FP) PO ONE (20:00)
[2019-11-13] MEDS ORDERED: TUBERCULIN PPD 5 TU/0.1ML VIAL ID ONE (20:39)
[2019-11-13] MEDS: hydrOXYzine PAMOATE 25 MG CAPSULE (FP) PO SCH (21:29)
[2019-11-13] MEDS: GABAPENTIN 300 MG CAPSULE PO SCH (21:29)
[2019-11-13] MEDS: THIAMINE HCL 100 MG TABLET (FP) PO SCH (21:29)
[2019-11-13] MEDS: MELATONIN 5 MG TABLETS PO SCH (21:30)
[2019-11-13] MEDS: NAPROXEN 500 MG TABLET PO SCH (21:30)
[2019-11-14] MEDS ORDERED: METHADONE HCL 40 MG DISPERSABLE TABLET ONE (03:25)
[2019-11-14] MEDS ORDERED: METHADONE HCL 10 MG TABLET ONE (03:26)
[2019-11-14] MEDS: hydrOXYzine PAMOATE 25 MG CAPSULE (FP) PO SCH ×5 (06:40→21:22)
[2019-11-14] MEDS: METHADONE 80 MG, METHADONE 10 MG PO SCH (06:40)
[2019-11-14] MEDS: PRENATAL VITAMINS W/ FOLIC ACID TABLET (FP) PO SCH (09:52)
[2019-11-14] MEDS: PANTOPRAZOLE 40 MG TABLET PO SCH (09:53)
[2019-11-14] MEDS: NAPROXEN 500 MG TABLET PO SCH ×2 (09:53→21:23)
[2019-11-14] MEDS: NICOTINE 14 MG/24 HOURS TOPICAL PATCH TD SCH (09:53)
[2019-11-14 10:50] LABS: HEMATOCRIT 38.8 % (32.4-45.2); HEMOGLOBIN 12.3 GM/dL (10.7-15.3); MCH 27.4 pg (25.7-33.7); MCHC 31.7 g/dl (32.0-36.0); MEAN CELL VOLUME 86.4 fl (80-96); MEAN PLT VOLUME 7.3 fl (7.5-11.1); PLATELET COUNT 537 K/MM3 (134-434); RBC 4.49 M/mm3 (3.60-5.2); RDW 14.5 % (11.6-15.6); WHITE BLOOD COUNT 11.1 K/mm3 (4.0-10.0)
[2019-11-14 10:59] LABS: BLOOD UREA NITROGEN 15.9 mg/dL (7-18); CREATININE 1.2 mg/dL (0.55-1.3)
[2019-11-14 11:00] LABS: BILIRUBIN,TOTAL 0.4 mg/dL (0.2-1); CALCIUM 9.5 mg/dL (8.5-10.1); POTASSIUM 4.7 mmol/L (3.5-5.1); TOT PROT 8.1 g/dl (6.4-8.2)
[2019-11-14 11:19] LABS: SICKLE CELL SCREEN NEGATIVE (NEGATIVE)
[2019-11-14] MEDS: MAG HYDROX/AL HYDROX/SIMETH 30 ML UNIT-DOSE CUP PO PRN (11:52)
--- NOTE | 2019-11-14 11:56 | PN ---
[facility] CIWA - CIWA Score Nausea/Vomitin-Mild Nausea/No Vomiting Muscle Tremors: None Anxiety: 0-No Anxiety, at Ease Agitation: 0-Normal Activity Paroxysmal Sweats: No Perspiration Orientation: 1-Uncertain about Date Tacttile Disturbances: 0-None Auditory Disturbances: 0-None Visual Disturbances: 0-None Headache: 0-None Present CIWA-Ar Total Score: 2 [facility] Progress Note (SOAP) Subjective: patient admitted to [facility] yesterday Objective: General: no apparent distressed HEENTM: Normocepahlic, EOMI, PERRLA Neck: supple RESP: no use of accessory muscles ABD: +BS, soft, flat MSK: full weight bearing, full ROM, steady gait Neuro: Alert, oriented to self, place, knows that it is morning and , unsure of date 11/14/19 11:55 Assessment: Substance use rehab, opioid use benzo dependence 11/14/19 11:56 11/14/19 11:57 Plan: Continue with rehab treatment. Maintain safety Medicate pain as appropriate Hydration & Nutrition as needed
--- NOTE | 2019-11-14 13:36 | PN ---
[facility] Progress Note Note: Patient with +RPR titer of 1:1. Discussed the results with the patient, who reports being treated for syphilis in March with 3 doses of PCN. The patient needs no further treatment at this time (please see CDC and/or [facility] guidelines). Laboratory Last Values WBC 11.1 K/mm3 (4.0-10.0) H 11/14/19 07:50 RBC 4.49 M/mm3 (3.60-5.2) 11/14/19 07:50 Hgb 12.3 GM/dL (10.7-15.3) 11/14/19 07:50 Hct 38.8 % (32.4-45.2) 11/14/19 07:50 MCV 86.4 fl (80-96) 11/14/19 07:50 MCH 27.4 pg (25.7-33.7) 11/14/19 07:50 MCHC 31.7 g/dl (32.0-36.0) L 11/14/19 07:50 RDW 14.5 % (11.6-15.6) 11/14/19 07:50 Plt Count 537 K/MM3 (134-434) H D 11/14/19 07:50 MPV 7.3 fl (7.5-11.1) L D 11/14/19 07:50 Sickle Cell Screen Negative (NEGATIVE) 11/14/19 07:50 Sodium 136 mmol/L (136-145) 11/14/19 07:50 Potassium 4.7 mmol/L (3.5-5.1) 11/14/19 07:50 Chloride 101 mmol/L (98-107) 11/14/19 07:50 Carbon Dioxide 27 mmol/L (21-32) 11/14/19 07:50 Anion Gap 8 MMOL/L (8-16) 11/14/19 07:50 BUN 15.9 mg/dL (7-18) 11/14/19 07:50 Creatinine 1.2 mg/dL (0.55-1.3) 11/14/19 07:50 Est GFR (CKD-EPI)AfAm 58.92 11/14/19 07:50 Est GFR (CKD-EPI)NonAf 50.84 11/14/19 07:50 Random Glucose 181 mg/dL (74-106) H 11/14/19 07:50 Calcium 9.5 mg/dL (8.5-10.1) 11/14/19 07:50 Total Bilirubin 0.4 mg/dL (0.2-1) 11/14/19 07:50 AST 17 U/L (15-37) 11/14/19 07:50 ALT 24 U/L (13-61) 11/14/19 07:50 Alkaline Phosphatase 107 U/L (45-117) 11/14/19 07:50 Total Protein 8.1 g/dl (6.4-8.2) 11/14/19 07:50 Albumin 4.0 g/dl (3.4-5.0) 11/14/19 07:50 POC Urine HCG, Qual Negative 11/13/19 14:50 Syphilis Serology Reactive (NONREACTIVE) A* 11/14/19 07:50 RPR Titer Reactive 1:1 (NONREACTIVE) H D 11/14/19 07:50 SARS-CoV-2 (PCR) Negative (Negative) 11/13/19 15:49
[2019-11-14 14:36] LABS: URINE APPEARANCE CLOUDY; URINE BILIRUBIN NEGATIVE (NEGATIVE); URINE COLOR YELLOW; URINE GLUCOSE (UA) NEGATIVE (NEGATIVE); URINE KETONE NEGATIVE (NEGATIVE); URINE LEUK ESTERASE NEGATIVE (NEGATIVE); URINE NITRITE NEGATIVE (NEGATIVE); URINE PROTEIN TRACE (NEGATIVE); URINE UROBILINOGEN 0.2 mg/dL (0.2-1.0)
[2019-11-14] MEDS: THIAMINE HCL 100 MG TABLET (FP) PO SCH (21:22)
[2019-11-14] MEDS: MELATONIN 5 MG TABLETS PO SCH (21:22)
[2019-11-14] MEDS: metroNIDAZOLE 0.75% VAGINAL GEL 70 GM TUBE VG SCH (21:22)
[2019-11-14] MEDS: GABAPENTIN 300 MG CAPSULE PO SCH (21:22)
[2019-11-15] MEDS ORDERED: METHADONE HCL 40 MG DISPERSABLE TABLET ONE (03:08)
[2019-11-15] MEDS ORDERED: METHADONE HCL 10 MG TABLET ONE (03:08)
[2019-11-15] MEDS: hydrOXYzine PAMOATE 25 MG CAPSULE (FP) PO SCH ×5 (06:00→21:31)
[2019-11-15] MEDS: METHADONE 80 MG, METHADONE 10 MG PO SCH (06:00)
[2019-11-15] MEDS: PANTOPRAZOLE 40 MG TABLET PO SCH (09:53)
[2019-11-15] MEDS: NAPROXEN 500 MG TABLET PO SCH ×2 (09:53→21:31)
[2019-11-15] MEDS: PRENATAL VITAMINS W/ FOLIC ACID TABLET (FP) PO SCH (09:53)
[2019-11-15] MEDS: NICOTINE 14 MG/24 HOURS TOPICAL PATCH TD SCH (09:55)
--- NOTE | 2019-11-15 10:01 | CONSULT ---
[facility] Psychiatric Consult - Data Date of interview: 11/15/19 Admission source: [facility] Identifying data: Patient is a 54 year old single female, mother of three, unemployed, homeless, and is supported by disability benefits. This is one of multiple admissions for patient. Patient admitted to [facility] for benzodiazepine dependence. Substance Abuse History: Substance Use History. Heroin. Substance amount: 2 bags. Substance route: Inhalation (ex: sniffing or snorting). Date of Last Use: 11/13/19 (started age 20). Xanax. Substance amount: 2mg- 2 tabs. Frequency of use: Daily. Substance route: Oral. Date of Last Use: 11/12/19. Nicotine. Substance amount: 6 ciggs. Frequency of use: Daily. Substance route: Smoking. Date of Last Use: 11/13/19 Medical History: OA right knee, scoliosis, sciatica, anemia, GERD Psychiatric History: Ms. Frazier states that her first psychiatric contact was at 20 years ago while incacerated due to feeling depressed and exhibiting worsening anxiety. Throughout the years Ms. Frazier reports seeing various psychiatrist. She is presently provided with outpatient psychiatric care by Dr. Henriquez located in the [facility] [place], [place] and states that she is prescribed lexapro 20mg + Seroquel 50mg daily + 100mg HS. She reports a diagnosis of depression and anxiety disorder. Patient reports most recently taking her medications prior to admission. Ms. Frazier denies history of psychiatric hospitalization and suicide attempt. Physical/Sexual Abuse/Trauma History: denies. Mental Status Exam - Mental Status Exam Alert and Oriented to: Time, Place, Person Cognitive Function: Good Patient Appearance: Well Groomed Mood: Hopeful Affect: Appropriate Patient Behavior: Cooperative Speech Pattern: Appropriate Voice Loudness: Normal Thought Process: Intact, Goal Oriented Thought Disorder: Not Present Hallucinations: Denies Suicidal Ideation: Denies Homicidal Ideation: Denies Insight/Judgement: Poor Sleep: Poorly Appetite: Fair Muscle strength/Tone: Normal Gait/Station: Normal Psychiatric Findings - Problem List ([place] 1, 2,3) (1) Methadone maintenance therapy patient Status: Chronic (2) Benzodiazepine dependence Status: Chronic (3) Mood disorder Status: Chronic - Initial Treatment Plan Initial Treatment Plan: Psychoeducation provided. Detoxification in progress. Will order Lexapro 20mg daily+ Seroquel 50mg daily + 100mg HS. Benefits and side effects discussed. Verbal consent given.
[2019-11-15] MEDS: QUEtiapine FUMARATE 50 MG TABLET PO SCH (11:33)
[2019-11-15] MEDS: ESCITALOPRAM OXALATE 20 MG TABLET PO SCH (11:33)
[2019-11-15] MEDS: THIAMINE HCL 100 MG TABLET (FP) PO SCH (21:30)
[2019-11-15] MEDS: GABAPENTIN 300 MG CAPSULE PO SCH (21:30)
[2019-11-15] MEDS: QUEtiapine FUMARATE 100 MG TABLET (FP) PO SCH (21:31)
[2019-11-15] MEDS: MELATONIN 5 MG TABLETS PO SCH (21:32)
[2019-11-15] MEDS: metroNIDAZOLE 0.75% VAGINAL GEL 70 GM TUBE VG SCH (21:32)
[2019-11-16] MEDS ORDERED: METHADONE HCL 10 MG TABLET ONE (05:28)
[2019-11-16] MEDS ORDERED: METHADONE HCL 40 MG DISPERSABLE TABLET ONE (05:28)
[2019-11-16] MEDS: METHADONE 80 MG, METHADONE 10 MG PO SCH (06:07)
[2019-11-16] MEDS: hydrOXYzine PAMOATE 25 MG CAPSULE (FP) PO SCH ×5 (06:08→21:47)
[2019-11-16] MEDS: QUEtiapine FUMARATE 50 MG TABLET PO SCH (10:05)
[2019-11-16] MEDS: PANTOPRAZOLE 40 MG TABLET PO SCH (10:05)
[2019-11-16] MEDS: ESCITALOPRAM OXALATE 20 MG TABLET PO SCH (10:05)
[2019-11-16] MEDS: PRENATAL VITAMINS W/ FOLIC ACID TABLET (FP) PO SCH (10:05)
[2019-11-16] MEDS: NICOTINE 14 MG/24 HOURS TOPICAL PATCH TD SCH (10:06)
[2019-11-16] MEDS: NAPROXEN 500 MG TABLET PO SCH ×2 (10:06→21:47)
[2019-11-16] MEDS ORDERED: PT OWN MED DRAWER 7, Y5N ONE (19:36)
[2019-11-16] MEDS: metroNIDAZOLE 0.75% VAGINAL GEL 70 GM TUBE VG SCH (21:45)
[2019-11-16] MEDS: MELATONIN 5 MG TABLETS PO SCH (21:45)
[2019-11-16] MEDS: GABAPENTIN 300 MG CAPSULE PO SCH (21:46)
[2019-11-16] MEDS: THIAMINE HCL 100 MG TABLET (FP) PO SCH (21:46)
[2019-11-16] MEDS: QUEtiapine FUMARATE 100 MG TABLET (FP) PO SCH (21:46)
[2019-11-17] MEDS ORDERED: METHADONE HCL 10 MG TABLET ONE (05:34)
[2019-11-17] MEDS ORDERED: METHADONE HCL 40 MG DISPERSABLE TABLET ONE (05:34)
[2019-11-17] MEDS: METHADONE 80 MG, METHADONE 10 MG PO SCH (06:17)
[2019-11-17] MEDS: hydrOXYzine PAMOATE 25 MG CAPSULE (FP) PO SCH ×5 (06:17→21:18)
[2019-11-17] MEDS ORDERED: ESCITALOPRAM OXALATE 10 MG TABLET ONE (09:03)
[2019-11-17] MEDS ORDERED: PT OWN MED DRAWER 7, Y5N ONE ×2 (09:04→21:21)
[2019-11-17] MEDS: NICOTINE 14 MG/24 HOURS TOPICAL PATCH TD SCH (09:45)
[2019-11-17] MEDS: NAPROXEN 500 MG TABLET PO SCH ×2 (09:46→22:12)
[2019-11-17] MEDS: QUEtiapine FUMARATE 50 MG TABLET PO SCH (09:46)
[2019-11-17] MEDS: ESCITALOPRAM OXALATE 20 MG TABLET PO SCH (09:46)
[2019-11-17] MEDS: PANTOPRAZOLE 40 MG TABLET PO SCH (09:46)
[2019-11-17] MEDS: PRENATAL VITAMINS W/ FOLIC ACID TABLET (FP) PO SCH (09:46)
[2019-11-17] MEDS: QUEtiapine FUMARATE 100 MG TABLET (FP) PO SCH (21:18)
[2019-11-17] MEDS: GABAPENTIN 300 MG CAPSULE PO SCH (21:18)
[2019-11-17] MEDS: metroNIDAZOLE 0.75% VAGINAL GEL 70 GM TUBE VG SCH (21:20)
[2019-11-17] MEDS: MELATONIN 5 MG TABLETS PO SCH (21:20)
[2019-11-17] MEDS: THIAMINE HCL 100 MG TABLET (FP) PO SCH (21:21)
[2019-11-18] MEDS ORDERED: METHADONE HCL 40 MG DISPERSABLE TABLET ONE (03:27)
[2019-11-18] MEDS ORDERED: METHADONE HCL 10 MG TABLET ONE (03:27)
[2019-11-18] MEDS: METHADONE 80 MG, METHADONE 10 MG PO SCH (06:09)
[2019-11-18] MEDS: hydrOXYzine PAMOATE 25 MG CAPSULE (FP) PO SCH ×5 (06:10→21:04)
[2019-11-18] MEDS ORDERED: ESCITALOPRAM OXALATE 10 MG TABLET ONE (08:53)
[2019-11-18] MEDS: NAPROXEN 500 MG TABLET PO SCH ×2 (09:48→21:03)
[2019-11-18] MEDS: NICOTINE 14 MG/24 HOURS TOPICAL PATCH TD SCH (09:48)
[2019-11-18] MEDS: PANTOPRAZOLE 40 MG TABLET PO SCH (09:48)
[2019-11-18] MEDS: QUEtiapine FUMARATE 50 MG TABLET PO SCH (09:48)
[2019-11-18] MEDS: PRENATAL VITAMINS W/ FOLIC ACID TABLET (FP) PO SCH (09:48)
[2019-11-18] MEDS: ESCITALOPRAM OXALATE 20 MG TABLET PO SCH (09:49)
[2019-11-18] MEDS ORDERED: PT OWN MED DRAWER 7, Y5N ONE ×2 (20:59→21:44)
[2019-11-18] MEDS: metroNIDAZOLE 0.75% VAGINAL GEL 70 GM TUBE VG SCH (21:03)
[2019-11-18] MEDS: GABAPENTIN 300 MG CAPSULE PO SCH (21:03)
[2019-11-18] MEDS: THIAMINE HCL 100 MG TABLET (FP) PO SCH (21:03)
[2019-11-18] MEDS: QUEtiapine FUMARATE 100 MG TABLET (FP) PO SCH (21:03)
[2019-11-18] MEDS: MELATONIN 5 MG TABLETS PO SCH (21:03)
[2019-11-19] MEDS ORDERED: METHADONE HCL 40 MG DISPERSABLE TABLET ONE (03:23)
[2019-11-19] MEDS ORDERED: METHADONE HCL 10 MG TABLET ONE (03:23)
[2019-11-19] MEDS: METHADONE 80 MG, METHADONE 10 MG PO SCH (06:13)
[2019-11-19] MEDS: hydrOXYzine PAMOATE 25 MG CAPSULE (FP) PO SCH ×5 (06:13→23:35)
[2019-11-19] MEDS: QUEtiapine FUMARATE 50 MG TABLET PO SCH (09:39)
[2019-11-19] MEDS: PRENATAL VITAMINS W/ FOLIC ACID TABLET (FP) PO SCH (09:40)
[2019-11-19] MEDS: ESCITALOPRAM OXALATE 20 MG TABLET PO SCH (09:40)
[2019-11-19] MEDS: NAPROXEN 500 MG TABLET PO SCH ×2 (09:40→23:35)
[2019-11-19] MEDS: NICOTINE 14 MG/24 HOURS TOPICAL PATCH TD SCH (09:42)
[2019-11-19] MEDS: MAG HYDROX/AL HYDROX/SIMETH 30 ML UNIT-DOSE CUP PO PRN (09:44)
[2019-11-19] MEDS ORDERED: PT OWN MED DRAWER 7, Y5N ONE ×2 (09:44→10:40)
[2019-11-19] MEDS ORDERED: NON-FORMULARY MED PO SCH (10:00)
[2019-11-19 17:18] VITALS: TEMP 98.3
[2019-11-19] MEDS ORDERED: LORazepam 2 MG/ML SDV VIAL ONE (17:40)
[2019-11-19 17:44] VITALS: BP 131/72; PULSE 94
[2019-11-19] MEDS ORDERED: LORazepam 2 MG/ML SDV VIAL IM ONE (17:46)
--- NOTE | 2019-11-19 17:46 | PN ---
[facility] Progress Note Note: Responded to rapid response at 5.37pm. Patient is very weak, confused, tachycardic, trembling and very anxious. Patient is being transferred to emergency room for further evaluation. Endorsed to Dr. Burris Vital Signs Temperature 98.3 F 11/19/19 17:17 Pulse Rate 94 H 11/19/19 17:38 Respiratory Rate 18 11/19/19 17:38 Blood Pressure 131/72 11/19/19 17:38 O2 Sat by Pulse Oximetry (%) 86 L 11/19/19 17:40 Laboratory Last Values WBC 11.1 K/mm3 (4.0-10.0) H 11/14/19 07:50 RBC 4.49 M/mm3 (3.60-5.2) 11/14/19 07:50 Hgb 12.3 GM/dL (10.7-15.3) 11/14/19 07:50 Hct 38.8 % (32.4-45.2) 11/14/19 07:50 MCV 86.4 fl (80-96) 11/14/19 07:50 MCH 27.4 pg (25.7-33.7) 11/14/19 07:50 MCHC 31.7 g/dl (32.0-36.0) L 11/14/19 07:50 RDW 14.5 % (11.6-15.6) 11/14/19 07:50 Plt Count 537 K/MM3 (134-434) H D 11/14/19 07:50 MPV 7.3 fl (7.5-11.1) L D 11/14/19 07:50 Sickle Cell Screen Negative (NEGATIVE) 11/14/19 07:50 Sodium 136 mmol/L (136-145) 11/14/19 07:50 Potassium 4.7 mmol/L (3.5-5.1) 11/14/19 07:50 Chloride 101 mmol/L (98-107) 11/14/19 07:50 Carbon Dioxide 27 mmol/L (21-32) 11/14/19 07:50 Anion Gap 8 MMOL/L (8-16) 11/14/19 07:50 BUN 15.9 mg/dL (7-18) 11/14/19 07:50 Creatinine 1.2 mg/dL (0.55-1.3) 11/14/19 07:50 Est GFR (CKD-EPI)AfAm 58.92 11/14/19 07:50 Est GFR (CKD-EPI)NonAf 50.84 11/14/19 07:50 POC Glucometer 106 UNITS (80-120) 11/16/19 06:07 Random Glucose 181 mg/dL (74-106) H 11/14/19 07:50 Calcium 9.5 mg/dL (8.5-10.1) 11/14/19 07:50 Total Bilirubin 0.4 mg/dL (0.2-1) 11/14/19 07:50 AST 17 U/L (15-37) 11/14/19 07:50 ALT 24 U/L (13-61) 11/14/19 07:50 Alkaline Phosphatase 107 U/L (45-117) 11/14/19 07:50 Total Protein 8.1 g/dl (6.4-8.2) 11/14/19 07:50 Albumin 4.0 g/dl (3.4-5.0) 11/14/19 07:50 Urine Color Yellow 11/14/19 09:45 Urine Appearance Cloudy 11/14/19 09:45 Urine pH 5.0 (5.0-8.0) D 11/14/19 09:45 Ur Specific Ethel 1.022 (1.010-1.035) 11/14/19 09:45 Urine Protein Trace (NEGATIVE) 11/14/19 09:45 Urine Glucose (UA) Negative (NEGATIVE) 11/14/19 09:45 Urine Ketones Negative (NEGATIVE) 11/14/19 09:45 Urine Blood Negative (NEGATIVE) 11/14/19 09:45 Urine Nitrite Negative (NEGATIVE) 11/14/19 09:45 Urine Bilirubin Negative (NEGATIVE) 11/14/19 09:45 Urine Urobilinogen 0.2 mg/dL (0.2-1.0) 11/14/19 09:45 Ur Leukocyte Esterase Negative (NEGATIVE) 11/14/19 09:45 POC Urine HCG, Qual Negative 11/13/19 14:50 Syphilis Serology Reactive (NONREACTIVE) A* 11/14/19 07:50 RPR Titer Reactive 1:1 (NONREACTIVE) H D 11/14/19 07:50 SARS-CoV-2 (PCR) Negative (Negative) 11/13/19 15:49 Action: Ativan 2mg Im ordered Oxygen 2 liters per minute via nasal cannula Transfer patient to ER
[2019-11-19] MEDS: MELATONIN 5 MG TABLETS PO SCH (23:34)
[2019-11-19] MEDS: THIAMINE HCL 100 MG TABLET (FP) PO SCH (23:35)
[2019-11-19] MEDS: GABAPENTIN 300 MG CAPSULE PO SCH (23:35)
[2019-11-19] MEDS: QUEtiapine FUMARATE 100 MG TABLET (FP) PO SCH (23:35)
[2019-11-20] MEDS ORDERED: METHADONE 80 MG, METHADONE 10 MG PO SCH (06:00)
[2019-11-20] MEDS ORDERED: METHADONE HCL 10 MG TABLET PO SCH (06:00)
== END 2019-11-20 | disposition short-term general hospital (02) | DRG 895 ==
LOC: YASAS 13:18 → Y3W 18:05
PROVIDERS: ADMIT Allergy & Immunology; ATTEND Allergy & Immunology
PROC: HZ42ZZZ Group Counseling for Substance Abuse Treatment, Cognitive-Behavioral (ICD-10-PCS; principal; 2019-11-13)
DX: F11.20 Opioid dependence, uncomplicated (principal); F13.20 Sedative, hypnotic or anxiolytic dependence, uncomplicated; F17.210 Nicotine dependence, cigarettes, uncomplicated; F39 Unspecified mood [affective] disorder; F41.9 Anxiety disorder, unspecified; F32.9 Major depressive disorder, single episode, unspecified; D64.9 Anemia, unspecified; K21.9 Gastro-esophageal reflux disease without esophagitis; M17.11 Unilateral primary osteoarthritis, right knee; M54.30 Sciatica, unspecified side; M41.9 Scoliosis, unspecified; Z56.0 Unemployment, unspecified; Z59.0 Homelessness
CPT/HCPCS: 36415; 80053; 81003; 81025; 82962; 85027; 85660; 86593; 86780; U0003

== ENCOUNTER 2019-11-19 18:35 | Emergency (ER) | payer OTHER ==
[2019-11-19 19:03] VITALS: BMI 30.1
--- NOTE | 2019-11-19 19:16 | PDOC ---
History of Present Illness <IsaiasAnnita - Last Filed: 11/19/19 21:36> - History of Present Illness Initial Comments: 54 YOF presents from [facility] for tachycardia and fever since this AM. Patient is agitated and unable to provide further history. 11/22/19 14:29 <Lobo Crowley - Last Filed: 11/22/19 14:32> - General Chief Complaint: Tremors Stated Complaint: Tremors Past History <Annita Esparza - Last Filed: 11/19/19 21:36> - Medical History Anemia: Yes (no med) Asthma: No Cancer: No Cardiac Disorders: No CVA: No COPD: No CHF: No Dementia: No Diabetes: No GI Disorders: Yes (Hx of GERD) Disorders: No HTN: No Hypercholesterolemia: No Kidney Stones: No Liver Disease: No Seizures: No Thyroid Disease: No - Surgical History Abdominal Surgery: No Appendectomy: No Cardiac Surgery: No Cholecystectomy: No Lung Surgery: No Neurologic Surgery: No Orthopedic Surgery: No (PT states she will be getting unilateral hip replacement) - Reproductive History Is Patient Now?: No PID: No - Psycho-Social/Smoking History Smoking History: Never smoked Have you smoked in the past 12 months: Yes Number of Cigarettes Smoked Daily: 6 Cigars Per Day: 0 'Breaking Loose' booklet given: 11/13/19 - Substance Abuse Hx (Audit-C & DAST Scrn) How often the patient has a drink containing alcohol: Never Score: In Men: 4 or > Positive; In Women: 3 or > Positive: 0 Screen Result (Pos requires Nsg. Audit-10AR): Negative In the last yr the pt used illegal drug/Rx for NonMed reason: No Score: Yes response is considered Positive: 0 Screen Result (Positive result requires Nsg. DAST-10): Negative <Lobo Crowley - Last Filed: 11/22/19 14:32> - Medical History Allergies/Adverse Reactions: Allergies Allergy/AdvReac Type Severity Reaction Status Date / Time No Known Allergies Allergy Verified 11/19/19 19:03 Home Medications: Ambulatory Orders Omeprazole 40 mg PO DAILY 06/04/18 Quetiapine Fumarate [Seroquel -] 100 mg PO HS 12/19/18 Escitalopram Oxalate [Lexapro -] 20 mg PO DAILY 07/08/19 Dexamethasone [Decadron] 4 mg PO BID 11/13/19 Gabapentin [Neurontin] 600 mg PO HS 11/13/19 Naproxen 500 mg PO BID 11/13/19 Quetiapine Fumarate [Seroquel -] 50 mg PO DAILY 11/13/19 Review of Systems - Review of Systems Able to Perform ROS?: No <Lobo Crowley - Last Filed: 11/22/19 14:32> *Physical Exam - Vital Signs Last Vital Signs Temp Pulse Resp BP Pulse Ox 101.7 F H 112 H 18 128/87 100 11/19/19 18:59 11/19/19 18:59 11/19/19 18:59 11/19/19 18:59 11/19/19 18:59 <Annita Esparza - Last Filed: 11/19/19 21:36> - Vital Signs Last Vital Signs Temp Pulse Resp BP Pulse Ox 101.7 F H 112 H 18 128/87 100 11/19/19 18:59 11/19/19 18:59 11/19/19 18:59 11/19/19 18:59 11/19/19 18:59 - Physical Exam General Appearance: Yes: Nourished, Apparent Distress, Other (patient is in bed with sheet over face, intermittently yelling, agitated, unwilling/ able to respond to questions) HEENT: positive: Normal Voice Neck: positive: Trachea midline, Normal Thyroid Respiratory/Chest: positive: Lungs Clear, Normal Breath Sounds Cardiovascular: positive: Regular Rate, S1, S2 Gastrointestinal/Abdominal: positive: Flat, Soft Musculoskeletal: positive: Normal Inspection Extremity: positive: Normal Capillary Refill, Normal Inspection Integumentary: positive: Normal Color, Dry, Warm <Lobo Crowley - Last Filed: 11/22/19 14:32> ED Treatment Course - LABORATORY CBC & Chemistry Diagram: 11/19/19 20:00 11/19/19 20:00 - ADDITIONAL ORDERS Additional order review: Laboratory Results 11/19/19 11/19/19 11/19/19 20:00 20:00 20:00 Sodium 139 Potassium 5.5 H Chloride 102 Carbon Dioxide 31 Anion Gap 7 L BUN 22.7 H Creatinine 1.3 Est GFR (CKD-EPI)AfAm 53.48 Est GFR (CKD-EPI)NonAf 46.15 Random Glucose 161 H Lactic Acid 1.8 Calcium 8.6 Total Bilirubin 0.4 AST 95 H ALT 52 Alkaline Phosphatase 104 Total Protein 7.0 Albumin 3.2 L Serum , Qual Negative Alcohol, Quantitative < 3 11/19/19 20:00 RBC 3.74 MCV 87.0 MCHC 31.8 L RDW 14.4 MPV 7.6 Neutrophils % 86.3 H D Lymphocytes % 7.4 L D Monocytes % 4.8 Eosinophils % 1.3 Basophils % 0.2 - RADIOLOGY Radiology Studies Ordered: Category Date Time Status ABDOMEN & PELVIS CT WITH CONTR [CT] Stat CT Scan 11/19/19 20:[address] WITH CONTRAST [CT] Stat CT Scan 11/19/19 20:[address] WITHOUT CONTRAST [CT] Stat CT Scan 11/19/19 20:[address] W/O CONTRAST [CT] Stat CT Scan 11/19/19 20:[address] W/O CONTRAST [CT] Stat CT Scan 11/19/19 20:44 Ordered LUMBAR SPINE MRI W&W/O CONTR [MRI] Stat MRI 11/19/19 19:30 Ordered THORACIC SPINE MRI W/WO CONTR [MRI] Stat MRI 11/19/19 19:30 Ordered CHEST X-RAY PORTABLE* [RAD] Stat Radiology 11/19/19 19:15 Taken - Medications Given in the ED: ED Medications Discontinued Medications Generic Name Dose Route Start Last Admin Trade Name Freq PRN Reason Stop Dose Admin Acetaminophen 1,000 mg 11/19/19 19:59 11/19/19 20:49 Ofirmev Injection - IVPB 11/19/19 20:00 1,000 mg ONCE ONE Administration Diphenhydramine HCl 50 mg 11/19/19 19:59 11/19/19 20:48 Benadryl Injection - IVPUSH 11/19/19 20:00 50 mg ONCE ONE Administration Sodium Chloride 1,000 mls @ 1,000 mls/hr 11/19/19 19:59 11/19/19 20:49 Normal Saline - IV 11/19/19 20:58 1,000 mls/hr ASDIR STA Administration <Annita Esparza - Last Filed: 11/19/19 21:36> - LABORATORY CBC & Chemistry Diagram: 11/19/19 20:00 11/19/19 20:00 <Lobo Crowley - Last Filed: 11/22/19 14:32> Medical Decision Making - Medical Decision Making 54 year old female with PMH of polysubstance abuse, sent to ED via ambulance from [facility] inpatient, for tremors occurring today. Pt was found to be tachycardic, febrile, with altered mental status. A&Ox1. Pt complained of diffuse back pain. Pt is too altered to ask MRI questionaire, would get MRI lumbar and thoracic spine to rule out epidural abscess. Will get CT head, CT thoracic/lumbar spine. Vancomycin + Zosyn ordered. Pt was combative with staff, danger to herself and others. Benadryl given to obtain CT scans. Initial Vital Signs Temp Pulse Resp BP Pulse Ox 101.7 F H 112 H 18 128/87 100 11/19/19 18:59 11/19/19 18:59 11/19/19 18:59 11/19/19 18:59 11/19/19 18:59 Medications given Acetaminophen Injection [Ofirmev Injection -] 1,000 mg IVPB ONCE ONE Diphenhydramine [Benadryl Injection -] 50 mg IVPUSH ONCE ONE Piperacillin/Tazob 4.5 gm [Zosyn -] 4.5 gm Dextrose 5%-Water [Dextrose 5% Water Minibag 100ML] 100 ml IVPB ONCE Sodium Chloride [Normal Saline -] 1,000 ml IV ASDIR Vancomycin 1,000 mg Dextrose 5%-Water - [D5w -] 250 ml IVPB ONCE CBC WBC 14.0 K/mm3 (4.0-10.0) H 11/19/19 20:00 RBC 3.74 M/mm3 (3.60-5.2) 11/19/19 20:00 Hgb 10.3 GM/dL (10.7-15.3) L 11/19/19 20:00 Hct 32.5 % (32.4-45.2) D 11/19/19 20:00 MCV 87.0 fl (80-96) 11/19/19 20:00 MCH 27.6 pg (25.7-33.7) 11/19/19 20:00 MCHC 31.8 g/dl (32.0-36.0) L 11/19/19 20:00 RDW 14.4 % (11.6-15.6) 11/19/19 20:00 Plt Count 332 K/MM3 (134-434) D 11/19/19 20:00 MPV 7.6 fl (7.5-11.1) 11/19/19 20:00 Absolute Neuts (auto) 12.1 K/mm3 (1.5-8.0) H 11/19/19 20:00 Neutrophils % 86.3 % (42.8-82.8) H D 11/19/19 20:00 Lymphocytes % 7.4 % (8-40) L D 11/19/19 20:00 Monocytes % 4.8 % (3.8-10.2) 11/19/19 20:00 Eosinophils % 1.3 % (0-4.5) 11/19/19 20:00 Basophils % 0.2 % (0-2.0) 11/19/19 20:00 Nucleated RBC % 0 % (0-0) 11/19/19 20:00 Leukocytosis with left shift. Borderline anemia. CMP Sodium 139 mmol/L (136-145) 11/19/19 20:00 Potassium 5.5 mmol/L (3.5-5.1) H 11/19/19 20:00 Chloride 102 mmol/L (98-107) 11/19/19 20:00 Carbon Dioxide 31 mmol/L (21-32) 11/19/19 20:00 Anion Gap 7 MMOL/L (8-16) L 11/19/19 20:00 BUN 22.7 mg/dL (7-18) H 11/19/19 20:00 Creatinine 1.3 mg/dL (0.55-1.3) 11/19/19 20:00 Est GFR (CKD-EPI)AfAm 53.48 11/19/19 20:00 Est GFR (CKD-EPI)NonAf 46.15 11/19/19 20:00 Random Glucose 161 mg/dL (74-106) H 11/19/19 20:00 Lactic Acid 1.8 mmol/L (0.4-2.0) 11/19/19 20:00 Calcium 8.6 mg/dL (8.5-10.1) 11/19/19 20:00 Total Bilirubin 0.4 mg/dL (0.2-1) 11/19/19 20:00 AST 95 U/L (15-37) H 11/19/19 20:00 ALT 52 U/L (13-61) 11/19/19 20:00 Alkaline Phosphatase 104 U/L (45-117) 11/19/19 20:00 Total Protein 7.0 g/dl (6.4-8.2) 11/19/19 20:00 Albumin 3.2 g/dl (3.4-5.0) L 11/19/19 20:00 Serum , Qual Negative 11/19/19 20:00 Hyperkalemia, hemolyzed, will repeat. Elevated AST, consistent with ETOH use. <Annita Esparza - Last Filed: 11/19/19 21:36> - Medical Decision Making 54 year old female with PMH of polysubstance abuse, sent to ED via ambulance from [facility] inpatient, for tremors occurring today. Pt was found to be tachycardic, febrile, with altered mental status. A&Ox1. Pt complained of diffuse back pain. Pt is too altered to ask MRI questionaire, would get MRI lumbar and thoracic spine to rule out epidural abscess. Will get CT head, CT thoracic/lumbar spine. Vancomycin + Zosyn ordered. Pt was combative with staff, danger to herself and others. Benadryl given to obtain CT scans. Leukocytosis with left shift. Borderline anemia. Hyperkalemia, hemolyzed, will repeat. Elevated AST, consistent with ETOH use. patient signed off to night team 11/22/19 14:31 <Lobo Crowley - Last Filed: 11/22/19 14:32> Discharge <Annita Esparza - Last Filed: 11/19/19 21:36> - Discharge Information Problems reviewed: Yes <Lobo Crowley - Last Filed: 11/22/19 14:32> - Discharge Information Clinical Impression/Diagnosis: Fever, Pneumonia, Altered mental state, Polysubstance abuse, Sepsis Condition: Stable Disposition: TRANSFER ACUTE CARE/OTHER HOSP - Follow up/Referral Referrals: Gabrielle Crawford [Primary Care Provider] - - Patient Discharge Instructions - Post Discharge Activity
[2019-11-19] MEDS ORDERED: ACETAMINOPHEN 1000 MG/100 ML VIAL (NON FORMULARY) IVPB ONE (19:59)
[2019-11-19] MEDS ORDERED: SODIUM CHLORIDE 1,000 ML IV STA (19:59)
[2019-11-19 20:10] LABS: BASO % 0.2 % (0-2.0); EOS % 1.3 % (0-4.5); HEMATOCRIT 32.5 % (32.4-45.2); HEMOGLOBIN 10.3 GM/dL (10.7-15.3); LYMPH % 7.4 % (8-40); MCH 27.6 pg (25.7-33.7); MCHC 31.8 g/dl (32.0-36.0); MEAN PLT VOLUME 7.6 fl (7.5-11.1); MONO % 4.8 % (3.8-10.2); NEUT % 86.3 % (42.8-82.8); PLATELET COUNT 332 K/MM3 (134-434); RBC 3.74 M/mm3 (3.60-5.2); RDW 14.4 % (11.6-15.6)
[2019-11-19] MEDS ORDERED: LORazepam 2 MG/ML SDV VIAL ONE (20:13)
[2019-11-19 20:39] LABS: ALBUMIN 3.2 g/dl (3.4-5.0); ALK PHOS 104 U/L (45-117); ANION GAP 7 MMOL/L (8-16); BILIRUBIN,TOTAL 0.4 mg/dL (0.2-1); BLOOD UREA NITROGEN 22.7 mg/dL (7-18); CALCIUM 8.6 mg/dL (8.5-10.1); CHLORIDE 102 mmol/L (98-107); CO2 31 mmol/L (21-32); CREATININE 1.3 mg/dL (0.55-1.3); GLUCOSE,RANDOM 161 mg/dL (74-106); POTASSIUM 5.5 mmol/L (3.5-5.1); SGOT/AST 95 U/L (15-37); SGPT/ALT 52 U/L (13-61); SODIUM 139 mmol/L (136-145)
[2019-11-19] MEDS ORDERED: ACETAMINOPHEN INJECTION 100 ML IVPB ONE (20:45)
[2019-11-19] MEDS ORDERED: VANCOMYCIN 1,000 MG in DEXTROSE 5%-WATER - 250 ML IVPB ONE (21:00)
[2019-11-19] MEDS ORDERED: PIPERACILLIN/TAZOB 4.5 GM 4.5 GM in DEXTROSE 5%-WATER 100 ML IVPB ONE (21:00)
[2019-11-19] MEDS ORDERED: VANCOMYCIN 1 GRAM (PRE-DOCKED) 1,000 MG/250 ML BAG IVPB ONE (21:29)
[2019-11-19] MEDS ORDERED: PIPERACILLIN/TAZOB 4.5 GM 4.5 GM/100 ML BAG IVPB ONE (21:30)
--- NOTE | 2019-11-19 21:51 | PDOC ---
History of Present Illness - General Chief Complaint: Tremors Stated Complaint: Tremors Time Seen by Provider: 11/19/19 19:14 - History of Present Illness Initial Comments: 54 YOF h/o polysubstance abuse presents from detox for fever, tachycardia and rigors since today. Patient is unable to provide history or ROS 2/2 agitation. Past History - Medical History Allergies/Adverse Reactions: Allergies Allergy/AdvReac Type Severity Reaction Status Date / Time No Known Allergies Allergy Verified 11/19/19 19:03 Home Medications: Ambulatory Orders Omeprazole 40 mg PO DAILY 06/04/18 Quetiapine Fumarate [Seroquel -] 100 mg PO HS 12/19/18 Escitalopram Oxalate [Lexapro -] 20 mg PO DAILY 07/08/19 Dexamethasone [Decadron] 4 mg PO BID 11/13/19 Gabapentin [Neurontin] 600 mg PO HS 11/13/19 Naproxen 500 mg PO BID 11/13/19 Quetiapine Fumarate [Seroquel -] 50 mg PO DAILY 11/13/19 Anemia: Yes (no med) Asthma: No Cancer: No Cardiac Disorders: No CVA: No COPD: No CHF: No Dementia: No Diabetes: No GI Disorders: Yes (Hx of GERD) Disorders: No HTN: No Hypercholesterolemia: No Kidney Stones: No Liver Disease: No Seizures: No Thyroid Disease: No - Surgical History Abdominal Surgery: No Appendectomy: No Cardiac Surgery: No Cholecystectomy: No Lung Surgery: No Neurologic Surgery: No Orthopedic Surgery: No (PT states she will be getting unilateral hip replacement) - Reproductive History Is Patient Now?: No PID: No - Psycho-Social/Smoking History Smoking History: Never smoked Have you smoked in the past 12 months: Yes Number of Cigarettes Smoked Daily: 6 Cigars Per Day: 0 'Breaking Loose' booklet given: 11/13/19 - Substance Abuse Hx (Audit-C & DAST Scrn) How often the patient has a drink containing alcohol: Never Score: In Men: 4 or > Positive; In Women: 3 or > Positive: 0 Screen Result (Pos requires Nsg. Audit-10AR): Negative In the last yr the pt used illegal drug/Rx for NonMed reason: No Score: Yes response is considered Positive: 0 Screen Result (Positive result requires Nsg. DAST-10): Negative *Physical Exam - Vital Signs Last Vital Signs Temp Pulse Resp BP Pulse Ox 101.7 F H 112 H 18 128/87 100 11/19/19 18:59 11/19/19 18:59 11/19/19 18:59 11/19/19 18:59 11/19/19 18:59 - Physical Exam General Appearance: Yes: Apparent Distress, Other (Patient is unable to answer questions, agitated) HEENT: positive: Other (patient covering face with sheet, unable to perform exam) Neck: positive: Trachea midline, Normal Thyroid Respiratory/Chest: positive: Crackles, Other Cardiovascular: positive: Regular Rhythm, Regular Rate, S1, S2 Gastrointestinal/Abdominal: positive: Normal Bowel Sounds, Flat, Soft Musculoskeletal: positive: Normal Inspection Extremity: positive: Normal Capillary Refill, Normal Inspection Integumentary: positive: Normal Color, Dry, Warm Neurologic: positive: Other (unable to perform d/t agitation, pt uncooperative) ED Treatment Course - LABORATORY CBC & Chemistry Diagram: 11/19/19 20:00 11/19/19 20:00 Medical Decision Making - Medical Decision Making 54 YOF w/ polysubstance abuse presenting from [facility] for fever, tachycardia vitals; temp: 101.7 HR 112 exam: remarkable for crackles in lungs more on right side, patient otherwise uncooperative on exam sepsis w/u CT CAP reveals non specific hypodense focus in right cerebellar hemisphere patient signed out to night team 11/19/19 21:55 Discharge - Discharge Information Problems reviewed: Yes Clinical Impression/Diagnosis: Fever, Pneumonia - Follow up/Referral Referrals: Gabrielle Crawford [Primary Care Provider] - - Patient Discharge Instructions - Post Discharge Activity
--- NOTE | 2019-11-19 22:23 | PDOC ---
Attending Attestation - Resident Resident Name: Lobo Crowley - ED Attending Attestation I have performed the following: I have examined & evaluated the patient, The case was reviewed & discussed with the resident, I agree w/resident's findings & plan - HPI HPI: 11/19/19 22:22 see resident hpi - Physicial Exam PE: 11/19/19 22:23 see resident exam - Medical Decision Making 11/19/19 23:22 Patient transferred from inpatient detox with fever and altered mental status and history of polysubstance abuse CTs performed of the head chest abdomen and pelvis due to altered mental status which shows bilateral multifocal infiltrates There is also a nonspecific area of inflammation versus infection on the CT brain Patient is also at risk for epidural abscess Zosyn and vancomycin administered in the emergency department Case discussed with neurosurgery Dr. Freeman who recommends transfer to a tertiary care facility for sedated MRI stat Case discussed with neurosurgery , Dr Gordillo who will accept the patient Of note MRI is not performed here earlier due to patient's inability to confirm MRI checklist Discharge - Discharge Information Problems reviewed: Yes Clinical Impression/Diagnosis: Fever, Pneumonia, Altered mental state - Follow up/Referral Referrals: Gabrielle Crawford [Primary Care Provider] - - Patient Discharge Instructions - Post Discharge Activity
[2019-11-19 22:46] LABS: PH,URINE >= 9.0 (5.0-8.0); URINE APPEARANCE CLEAR; URINE BILIRUBIN NEGATIVE (NEGATIVE); URINE COLOR YELLOW; URINE GLUCOSE (UA) NEGATIVE (NEGATIVE); URINE KETONE NEGATIVE (NEGATIVE); URINE LEUK ESTERASE NEGATIVE (NEGATIVE); URINE NITRITE NEGATIVE (NEGATIVE); URINE PROTEIN NEGATIVE (NEGATIVE)
--- NOTE | 2019-11-19 23:01 | PDOC ---
ED Treatment Course - LABORATORY CBC & Chemistry Diagram: 11/19/19 20:00 11/19/19 20:00 - ADDITIONAL ORDERS Additional order review: Laboratory Results 11/19/19 11/19/19 11/19/19 22:17 20:00 20:00 Sodium 139 Potassium 5.5 H Chloride 102 Carbon Dioxide 31 Anion Gap 7 L BUN 22.7 H Creatinine 1.3 Est GFR (CKD-EPI)AfAm 53.48 Est GFR (CKD-EPI)NonAf 46.15 Random Glucose 161 H Lactic Acid Calcium 8.6 Total Bilirubin 0.4 AST 95 H ALT 52 Alkaline Phosphatase 104 Total Protein 7.0 Albumin 3.2 L Serum , Qual Negative Urine Color Yellow Urine Appearance Clear Urine pH >= 9.0 H D Ur Specific [place] 1.040 H Urine Protein Negative Urine Glucose (UA) Negative Urine Ketones Negative Urine Blood Negative Urine Nitrite Negative Urine Bilirubin Negative Urine Urobilinogen 1.0 Ur Leukocyte Esterase Negative Alcohol, Quantitative < 3 11/19/19 20:00 Sodium Potassium Chloride Carbon Dioxide Anion Gap BUN Creatinine Est GFR (CKD-EPI)AfAm Est GFR (CKD-EPI)NonAf Random Glucose Lactic Acid 1.8 Calcium Total Bilirubin AST ALT Alkaline Phosphatase Total Protein Albumin Serum , Qual Urine Color Urine Appearance Urine pH Ur Specific [place] Urine Protein Urine Glucose (UA) Urine Ketones Urine Blood Urine Nitrite Urine Bilirubin Urine Urobilinogen Ur Leukocyte Esterase Alcohol, Quantitative 11/19/19 20:00 RBC 3.74 MCV 87.0 MCHC 31.8 L RDW 14.4 MPV 7.6 Neutrophils % 86.3 H D Lymphocytes % 7.4 L D Monocytes % 4.8 Eosinophils % 1.3 Basophils % 0.2 - RADIOLOGY Radiology Studies Ordered: Category Date Time Status ABDOMEN & PELVIS CT WITH CONTR [CT] Stat CT Scan 11/19/19 20:[address] WITH CONTRAST [CT] Stat CT Scan 11/19/19 20:[address] WITHOUT CONTRAST [CT] Stat CT Scan 11/19/19 20:[address] W/O CONTRAST [CT] Stat CT Scan 11/19/19 20:[address] W/O CONTRAST [CT] Stat CT Scan 11/19/19 20:44 Completed LUMBAR SPINE MRI W&W/O CONTR [MRI] Stat MRI 11/19/19 19:30 Ordered THORACIC SPINE MRI W/WO CONTR [MRI] Stat MRI 11/19/19 19:30 Ordered CHEST X-RAY PORTABLE* [RAD] Stat Radiology 11/19/19 19:15 Taken - Medications Given in the ED: ED Medications Discontinued Medications Generic Name Dose Route Start Last Admin Trade Name Yolette PRN Reason Stop Dose Admin Acetaminophen 1,000 mg 11/19/19 19:59 11/19/19 20:49 Ofirmev Injection - IVPB 11/19/19 20:00 1,000 mg ONCE ONE Administration Diphenhydramine HCl 50 mg 11/19/19 19:59 11/19/19 20:48 Benadryl Injection - IVPUSH 11/19/19 20:00 50 mg ONCE ONE Administration Sodium Chloride 1,000 mls @ 1,000 mls/hr 11/19/19 19:59 11/19/19 20:49 Normal Saline - IV 11/19/19 20:58 1,000 mls/hr ASDIR STA Administration Vancomycin HCl 1,000 mg/ 250 mls @ 166.667 mls/hr 11/19/19 21:00 11/19/19 22:05 Dextrose IVPB 11/19/19 22:29 166.667 mls/hr ONCE ONE Administration Protocol Piperacillin Sod/Tazobactam 100 mls @ 200 mls/hr 11/19/19 21:00 11/19/19 21:37 Sod 4.5 gm/ Dextrose IVPB 11/19/19 21:29 200 mls/hr ONCE ONE Administration Protocol Lorazepam 2 mg 11/19/19 20:00 11/19/19 21:18 Ativan Injection - IVPUSH 11/19/19 20:01 Not Given ONCE ONE Medical Decision Making - Medical Decision Making Dr. Freeman consulted, recommended MRI brain tonight, no MRI capabilities overnight at [facility], he feels pt would be better served at [facility]. Will initiate transfer. 11/19/19 23:20 Pt accepted to [facility] under Dr. Gordillo, neurosurgery. Transport being set up by transfer center. Will get CDs of scans, lab reports to send with patient. 11/20/19 00:10 Transport arrived. 11/20/19 00:22 Transport left ED. Discharge - Discharge Information Problems reviewed: Yes Clinical Impression/Diagnosis: Fever, Pneumonia, Altered mental state, Polysubstance abuse, Sepsis Disposition: TRANSFER ACUTE CARE/OTHER HOSP - Follow up/Referral Referrals: Gabrielle Crawford [Primary Care Provider] - - Patient Discharge Instructions - Post Discharge Activity
--- NOTE | 2019-11-19 23:26 | PDOC ---
*Physical Exam - Vital Signs Last Vital Signs Temp Pulse Resp BP Pulse Ox 100.1 F H 96 H 19 103/55 L 96 11/19/19 22:13 11/19/19 22:13 11/19/19 22:13 11/19/19 22:13 11/19/19 22:13 ED Treatment Course - LABORATORY CBC & Chemistry Diagram: 11/19/19 20:00 11/19/19 20:00 - ADDITIONAL ORDERS Additional order review: Laboratory Results 11/19/19 11/19/19 11/19/19 22:17 20:00 20:00 Sodium 139 Potassium 5.5 H Chloride 102 Carbon Dioxide 31 Anion Gap 7 L BUN 22.7 H Creatinine 1.3 Est GFR (CKD-EPI)AfAm 53.48 Est GFR (CKD-EPI)NonAf 46.15 Random Glucose 161 H Lactic Acid Calcium 8.6 Total Bilirubin 0.4 AST 95 H ALT 52 Alkaline Phosphatase 104 Total Protein 7.0 Albumin 3.2 L Serum , Qual Negative Urine Color Yellow Urine Appearance Clear Urine pH >= 9.0 H D Ur Specific [place] 1.040 H Urine Protein Negative Urine Glucose (UA) Negative Urine Ketones Negative Urine Blood Negative Urine Nitrite Negative Urine Bilirubin Negative Urine Urobilinogen 1.0 Ur Leukocyte Esterase Negative Alcohol, Quantitative < 3 11/19/19 20:00 Sodium Potassium Chloride Carbon Dioxide Anion Gap BUN Creatinine Est GFR (CKD-EPI)AfAm Est GFR (CKD-EPI)NonAf Random Glucose Lactic Acid 1.8 Calcium Total Bilirubin AST ALT Alkaline Phosphatase Total Protein Albumin Serum , Qual Urine Color Urine Appearance Urine pH Ur Specific [place] Urine Protein Urine Glucose (UA) Urine Ketones Urine Blood Urine Nitrite Urine Bilirubin Urine Urobilinogen Ur Leukocyte Esterase Alcohol, Quantitative 11/19/19 20:00 RBC 3.74 MCV 87.0 MCHC 31.8 L RDW 14.4 MPV 7.6 Neutrophils % 86.3 H D Lymphocytes % 7.4 L D Monocytes % 4.8 Eosinophils % 1.3 Basophils % 0.2 - Medications Given in the ED: ED Medications Discontinued Medications Generic Name Dose Route Start Last Admin Trade Name Freq PRN Reason Stop Dose Admin Acetaminophen 1,000 mg 11/19/19 19:59 11/19/19 20:49 Ofirmev Injection - IVPB 11/19/19 20:00 1,000 mg ONCE ONE Administration Diphenhydramine HCl 50 mg 11/19/19 19:59 11/19/19 20:48 Benadryl Injection - IVPUSH 11/19/19 20:00 50 mg ONCE ONE Administration Sodium Chloride 1,000 mls @ 1,000 mls/hr 11/19/19 19:59 11/19/19 20:49 Normal Saline - IV 11/19/19 20:58 1,000 mls/hr ASDIR STA Administration Vancomycin HCl 1,000 mg/ 250 mls @ 166.667 mls/hr 11/19/19 21:00 11/19/19 22:05 Dextrose IVPB 11/19/19 22:29 166.667 mls/hr ONCE ONE Administration Protocol Piperacillin Sod/Tazobactam 100 mls @ 200 mls/hr 11/19/19 21:00 11/19/19 21:37 Sod 4.5 gm/ Dextrose IVPB 11/19/19 21:29 200 mls/hr ONCE ONE Administration Protocol Lorazepam 2 mg 11/19/19 20:00 11/19/19 21:18 Ativan Injection - IVPUSH 11/19/19 20:01 Not Given ONCE ONE Medical Decision Making - Critical Care Time Total Critical Care Time (minutes): 90 Critical Care Statement: The care of this patient involved high complexity decision making to prevent further life threatening deterioration of the patient's condition and/or to evaluate & treat vital organ system(s) failure or risk of failure. - Medical Decision Making 11/19/19 23:25 Patient transferred from inpatient detox with fever and altered mental status and history of polysubstance abuse CTs performed of the head chest abdomen and pelvis due to altered mental status which shows bilateral multifocal infiltrates There is also a nonspecific area of inflammation versus infection on the CT brain Patient is also at risk for epidural abscess Zosyn and vancomycin administered in the emergency department Case discussed with neurosurgery Dr. Freeman who recommends transfer to a tertiary care facility for sedated MRI stat Case discussed with neurosurgery , Dr Gordillo who will accept the patient Of note MRI is not performed here earlier due to patient's inability to confirm MRI checklist Discharge - Discharge Information Problems reviewed: Yes Clinical Impression/Diagnosis: Fever, Pneumonia, Altered mental state, Polysubstance abuse, Sepsis Disposition: TRANSFER ACUTE CARE/OTHER HOSP - Follow up/Referral Referrals: Gabrielle Crawford [Primary Care Provider] - - Patient Discharge Instructions - Post Discharge Activity
[2019-11-20 00:25] VITALS: BP 98/55; PULSE 82; TEMP 98.2
--- NOTE | 2019-11-20 11:08 | EKG ---
Test Reason : Blood Pressure : / mmHG Vent. Rate : 097 BPM Atrial Rate : 097 BPM P-R Int : 122 ms QRS Dur : 080 ms QT Int : 324 ms P-R-T Axes : 059 050 024 degrees QTc Int : 411 ms NORMAL SINUS RHYTHM NONSPECIFIC T WAVE ABNORMALITY ABNORMAL ECG Confirmed by MD Gregory, Prasanth ([id number]) on 11/20/2019 11:08:01 AM Referred By: Confirmed By:Prasanth Jenkins MD
== END 2019-11-20 00:31 | disposition short-term general hospital (02) ==
LOC: JER 18:35
PROC: 3E03329 Introduction of Other Anti-infective into Peripheral Vein, Percutaneous Approach (ICD-10-PCS; principal; 2019-11-19)
PROC: 3E033GC Introduction of Other Therapeutic Substance into Peripheral Vein, Percutaneous Approach (ICD-10-PCS; 2019-11-19)
PROC: 3E0337Z Introduction of Electrolytic and Water Balance Substance into Peripheral Vein, Percutaneous Approach (ICD-10-PCS; 2019-11-19)
DX: A41.9 Sepsis, unspecified organism (principal); J18.9 Pneumonia, unspecified organism; R50.9 Fever, unspecified; R41.82 Altered mental status, unspecified
CPT/HCPCS: 36415; 70450-TC; 71045-TC-FY; 71260-TC; 72128-TC; 72131-TC; 74177-TC; 80053; 80307; 81003; 83605; 84703; 85025; 87040; 87086; 93005; 93010; 99291; 99292; J0131; Q9967; U0003

== ENCOUNTER 2019-11-22 16:20 | Inpatient (IN) | payer OTHER ==
--- NOTE | 2019-11-22 17:10 | HP ---
CIWA Score - Admission Criteria [facility] Guidelines: Admission for Medically Managed Detox: Requires at least one of the followin. CIWA greater than 12 2. Seizures within the past 24 hours 3. Delirium tremens within the past 24 hours 4. Hallucinations within the past 24 hours 5. Acute intervention needed for co occurring medical disorder 6. Acute intervention needed for co occurring psychiatric disorder 7. Severe withdrawal that cannot be handled at a lower level of care (continued vomiting, continued diarrhea, abnormal vital signs) requiring intravenous medication and/or fluids 8. Admitting History and Physical - Past Medical History Gastrointestinal: Yes: GERD ...LMP: 11/19/19 Psych: Yes: Anxiety, Depression - Smoking History Smoking history: Never smoked Have you smoked in the past 12 months: Yes Aproximately how many cigarettes per day: 6 - Alcohol/Substance Use Hx Alcohol Use: No History of Substance Use: reports: Cocaine, Heroin, Prescription, Tranquilizers - Social History ADL: Independent Occupation: Cook History of Recent Travel: No Admission ROS [facility] - [facility] Chief Complaint: Transferred from [facility] to complete Rehab. Allergies/Adverse Reactions: Allergies Allergy/AdvReac Type Severity Reaction Status Date / Time No Known Allergies Allergy Verified 11/22/19 17:09 History of Present Illness: 54 years old female is seeking admission to complete Rehab. She was admitted to [facility] for the period 11/13/2019 - 11/20/2019, sent to ER for evaluation of fever, tremors, tachycardia and confusion. From [facility] emergency room, she was transferred to [facility] for Neurosurgery evaluation. Patient was treated for fever, altered mental status and pneumonia, discharged from [facility] and transferred back to complete detox. She has medical history of GERD, anemia, scoliosis, sciatica, osteoarthritis of hip, chronic back pain, hypertension, psych. history of depression, insomnia and she denies suicidal ideation at this time. Patient is on Methadone 90mg tablet oral daily with VIP. Dose is yet to be confirmed by the nurse. Patient was discharged with a prescription for Amox-TR/ K Cl (Augumentin ) 875mg/125mg tablet oral Q12H x 7 days as per [facility] discharge order. Exam Limitations: No Limitations - Ebola screening Have you traveled outside of the country in the last 21 days: No Have you had contact with anyone from an Ebola affected area: No Have you been sick,other than usual withdrawal symptoms: No Do you have a fever: No - Review of Systems Constitutional: No Symptoms Reported EENT: reports: No Symptoms Reported Respiratory: reports: No Symptoms reported Cardiac: reports: No Symptoms Reported GI: reports: No Symptoms Reported : reports: No Symptoms Reported Musculoskeletal: reports: No Symptoms Reported Integumentary: reports: No Symptoms Reported Neuro: reports: No Symptoms reported Endocrine: reports: No Symptoms Reported Hematology: reports: No Symptoms Reported Psychiatric: reports: No Sypmtoms Reported, Mood/Affect Appropiate Other Systems: Reviewed and Negative Patient History - Patient Medical History Hx Anemia: Yes (Not on medication) Hx Asthma: No Hx Chronic Obstructive Pulmonary Disease (COPD): No Hx Cancer: No Hx Cardiac Disorders: No Hx Congestive Heart Failure: No Hx Hypertension: No Hx Hypercholesterolemia: No Hx Pacemaker: No HX Cerebrovascular Accident: No Hx Seizures: No Hx Dementia: No Hx Diabetes: No Hx Gastrointestinal Disorders: Yes (GERD) Hx Liver Disease: No Hx Genitourinary Disorders: No Hx Sexually Transmitted Disorders: No Hx Renal Disease (ESRD): No Hx Thyroid Disease: No Hx Human Immunodeficiency Virus (HIV): No (2018 negative) Hx Hepatitis C: No Hx Depression: Yes Hx Suicide Attempt: No (Denies suicidal ideation) Hx Bipolar Disorder: No Hx Schizophrenia: No Other Medical History: sciatica, osteoarthritis, chronic back pain, scoliosis - Patient Surgical History Past Surgical History: Yes Hx Neurologic Surgery: No Hx Cataract Extraction: No Hx Cardiac Surgery: No Hx Lung Surgery: No Hx Breast Surgery: No Hx Breast Biopsy: No Hx Abdominal Surgery: No Hx Appendectomy: No Hx Cholecystectomy: No Hx Genitourinary Surgery: No Hx Section: Yes (1995) Hx Orthopedic Surgery: No Anesthesia Reaction: No - PPD History Previous Implant?: Yes Documented Results: Negative w/proof Implanted On Prior [facility] Admission?: Yes Date: 11/15/19 Results: negative PPD to be Administered?: No - Reproductive History Patient is a Female of Child Bearing Age (11 -55 yrs old): Yes LMP comment: 5 years ago at age 49 - Smoking Cessation Smoking history: Current every day smoker Have you smoked in the past 12 months: Yes Aproximately how many cigarettes per day: 6 Hx Chewing Tobacco Use: No Initiated information on smoking cessation: Yes 'Breaking Loose' booklet given: 11/22/19 - Substance & Tx. History Hx Substance Use: Yes Substance Use Type: Heroin, Prescribed (Methadone), Tranquilizers Hx Substance Use Treatment: Yes ([facility]) Admission Physical Exam [facility] - Physical General Appearance: Yes: Within Normal Limits HEENTM: Yes: Normal ENT Inspection Respiratory: Yes: Lungs Clear, Normal Breath Sounds, No Respiratory Distress Neck: Yes: Within Normal Limits Breast: Yes: Breast Exam Deferred Cardiology: Yes: Within Normal Limits Abdominal: Yes: Normal Bowel Sounds Genitourinary: Yes: Within Normal Limits Back: Yes: Normal Inspection Musculoskeletal: Yes: Within Normal Limits Extremities: Yes: Within Normal Limits Neurological: Yes: Within Normal Limits Integumentary: Yes: Within Normal Limits Lymphatic: Yes: Within Normal Limits - Diagnostic (1) Sciatica Current Visit: No Status: Chronic Qualifiers: Laterality: unspecified laterality Qualified Code(s): M54.30 - Sciatica, unspecified side (2) Chronic back pain Current Visit: No Status: Chronic Qualifiers: Back pain location: low back pain (3) Methadone maintenance therapy patient Current Visit: No Status: Chronic (4) Pneumonia Current Visit: No Status: Chronic (5) Anemia Current Visit: No Status: Chronic (6) Arthritis of right hip Current Visit: No Status: Chronic Comment: manage by orthopedic Dr. Wu Harris; pain management referral (7) Benzodiazepine dependence Current Visit: No Status: Chronic (8) GERD (gastroesophageal reflux disease) Current Visit: No Status: Chronic Comment: diet control; monitor (9) Hypertension Current Visit: No Status: Chronic Comment: diet and exercise manage; not on meds (10) Insomnia Current Visit: No Status: Chronic Qualifiers: Insomnia type: unspecified Qualified Code(s): G47.00 - Insomnia, unspecified (11) Nicotine dependence Current Visit: No Status: Chronic Qualifiers: Nicotine product type: cigarettes Comment: on nicotine gum; monitor (12) Osteoarthritis Current Visit: No Status: Chronic (13) Scoliosis Current Visit: No Status: Chronic Comment: scoliosis making waling deficult refer to orthopedic; monitor Cleared for Admission [facility] - Detox or Rehab [facility] Level of Care: Observation Bed Claeared for Rehab Admission: Yes Breathalyzer - Breathalyzer Breathalyzer: 0 POC Urine test - Test device test lot number: [id number] Expiration date: 10/21/19 - Control test control: Yes Urine Drug Screen - Test Device Lot number: [id number] Expiration date: 05/28/21 - Control Is test valid?: Yes - Results Drug screen NEGATIVE: No Urine drug screen results: BZO-Benzodiazepines, MTD-Methadone, MOP-Opiates Inpatient Rehab Admission - Rehab Decision to Admit Inpatient rehab admission?: No - Initial Determination Are CD services needed?: No Free of communicable disease: Yes Not in need of hospitalization: Yes - Rehab Admission Criteria Previous failed treatment: Yes Poor recovery environment: Yes Comorbidities: Yes Lacks judgement: No Patient is meeting Inpatient Rehab admission criteria:: Yes
[2019-11-22] MEDS ORDERED: LOPERAMIDE HCL 2 MG CAPSULE PO PRN (17:36)
[2019-11-22] MEDS ORDERED: P-EPHED 60MG/TRIPROLIDI 2.5MG TABLET PO PRN (17:36)
[2019-11-22] MEDS ORDERED: NICOTINE POLACRILEX 2 MG GUM BC PRN (17:36)
[2019-11-22] MEDS ORDERED: MAGNESIUM CITRATE 300 ML BOTTLE PO PRN (17:36)
[2019-11-22] MEDS ORDERED: MAGNESIUM HYDROX 2400MG/30ML ORAL SUSPENSION 30 ML CUP PO PRN (17:36)
[2019-11-22] MEDS ORDERED: guaiFENesin 200 MG/10 ML 10 ML UNIT-DOSE CUPS PO PRN (17:36)
[2019-11-22] MEDS ORDERED: MAG HYDROX/AL HYDROX/SIMETH 30 ML UNIT-DOSE CUP PO PRN (17:36)
[2019-11-22] MEDS ORDERED: hydrOXYzine PAMOATE 25 MG CAPSULE (FP) PO PRN (17:36)
[2019-11-22 17:38] VITALS: BMI 26.0
--- OUTSIDE RECORDS SUMMARY | 2019-11-22 19:29 | XMS ---
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 region.. intracranial mass There is no or mass effect. abnormally
restricted Evaluation of diffusion to the brain suggest acute parenchyma is infarction. very limited. There is no Trace T2 evidence of
acute hyperintensity is intraparenchym noted in the al or babs, which may subarachnoid reflect small hemorrhage.
There is no vessel changes. extra-axial T2 shine through collection. artifact is noted There is no in this region.. abnormal
susceptibility There is no artifact to abnormally suggest restricted calcification diffusion to or chronic suggest acute hemorrhage.
IMPRESSION: infarction. Markedly
limited study There is no due to evidence of acute extensive intraparenchymal motion or subarachnoid artifact.
Trace signal hemorrhage. abnormality There is no with the babs extra-axial is nonspecific collection. but may
reflect There is no chronic small abnormal vessel susceptibility changes. No artifact to gross suggest cerebellar calcification mass lesion
is identified. or chronic hemorrhage. Resident

Radiologist: IMPRESSION: Attending

Radiologist: Manisha Small limited study due MD to extensive Finalizing motion artifact. Radiologist: Trace Scott Small
signal MD abnormality with Transcribed the babs is Date: nonspecific but 11/20/2019 may reflect 21:46
Finalized chronic small Date: vessel changes. 11/20/2019 No gross 21:50 cerebellar mass lesion
is identified.

<b r/> Resident Radiologist:
Attending Radiologist: Scott Small MD
Finalizing Radiologist: Scott Small MD
Transcribed Date: 11/20/2019 21:46
Finalized Date: 11/20/2019 21:50

</td> ID Date Data Source [id number] 11/20/2019 01:58:00 AM EDT [facility] [id number] [employer] Name Value Range Interpretation Description Data Source(s ) Supporting Code Document(s ) Specimen 11/23/19 <td> Tom Bean expiration 20 23:59 11/20/2019 [facility] date of Blood 01:58</td><td> Care Specimen [employer] Expiration Date </td><td> 11/23/2019 23:59
</td> Antibody NEG <td> Tom Bean Screen 11/20/2019 [facility] 01:58</td><td> Care Antibody Corporation Screen </td><td> NEG
</td> ABO-Rh Type O POS <td> Tom Bean 11/20/2019 [facility] 01:58</td><td> Care ABO-Rh Type Corporation </td><td> O POS
</td> ID Date Data Source [id number] 11/20/2019 12:00:00 AM EDT [facility] [employer] Name Value Range Interpretation Code Description Data Margie rce(s) Supporting Document(s ) SARS-COV-2 [facility] RNA RT-PCR [facility] This lab was ordered by [facility] and reported by [facility]. ID Date Data Source [id number] 11/13/2019 03:49:00 PM EDT [facility] Name Value Range Interpretation Code Description Data Margie rce(s) Supporting Document(s ) SARS COV-2 [facility] RT-PCR This lab was ordered by [facility] and reported by [facility]. ID Date Data Source [id number] 09/14/2019 12:00:00 AM EDT [facility] Name Value Range Interpretation Code Description Data Margie rce(s) Supporting Document(s ) 2019-nCoV [facility] RNA XXX AMPARO+probe- Imp This lab was ordered by [facility] and reported by [employer]. ID Date Data Source [id number] 07/08/2019 10:40:00 AM EDT [facility] Name Value Range Interpretation Description Data Sup porting Code Source(s) Document(s ) SARS [facility] CORONAVIRUS 2 RNA This lab was ordered by [facility] and reported by [facility]. ID Date Data Source [id number] 08/31/2018 08:15:00 AM EDT [facility] 0 Name Value Range Interpretation Description Data Sup porting Code Source(s) Document(s ) Glucose NEGATIVE <content Saint [Mass/volume] styleCode="Paula Marshall in Urine by d">Urine Medical Test strip Glucose Center </content>NEGA TIVE MG/DL<content styleCode="Esther lics"> (NEGATIVE MG/DL)</conten t> UNK CLEAR <content Saint styleCode="Paula Marshall d">Urine Medical Clarity Center </content>JEAN CARLOS R <content styleCode="Esther lics"> (CLEAR )</content> Color of Urine YELLOW <content Saint styleCode="Paula Marshall d">Color, Medical Urine Center </content>YELL OW <content styleCode="Esther lics"> (YELLOW )</content> Ketones NEGATIVE <content Saint [Mass/volume] styleCode="Paula Marshall in Urine by d">Urine Medical Test strip Ketone Center </content>NEGA TIVE MG/DL<content styleCode="Esther lics"> (NEGATIVE MG/DL)</conten t> UNK NEGATIVE <content Saint styleCode="Paula Marshall d">Urine Medical Bilirubin Center </content>SMAL L <content styleCode="Esther lics"> (NEGATIVE )</content> Specific 1.015-1.02 Above high <content Saint gravity of 5 normal styleCode="Paula Olivares Urine by Test d">Urine Medical strip Specific Center [place] </content>>= 1.030 H<content styleCode="Esther lics"> (1.015-1.025 )</content> Hemoglobin NEGATIVE <content Saint [Presence] in styleCode="Paula Olivares Urine by Test d">Urine Blood Medical strip </content>SMAL Center L <content styleCode="Esther lics"> (NEGATIVE )</content> Protein NEGATIVE <content Saint [Mass/volume] styleCode="Paula Washburns in Urine by d">Urine Medical Test strip Protein Center </content>30 MG/DL<content styleCode="Esther lics"> (NEGATIVE MG/DL)</conten t> pH of Urine by 4.5-8.0 <content Saint Test strip styleCode="Paula Washburns d">Urine pH Medical </content>6.0 Center <content styleCode="Esther lics"> (4.5-8.0 )</content> Nitrite NEGATIVE <content Saint [Presence] in styleCode="Paula Olivares Urine by Test d">Urine Medical strip Nitrite Center </content>NEGA TIVE <content styleCode="Esther lics"> (NEGATIVE )</content> Leukocyte NEGATIVE <content Saint esterase styleCode="Paula Washburns [Presence] in d">Urine Medical Urine by Test Leukocyte Center strip </content>NEGA TIVE <content styleCode="Esther lics"> (NEGATIVE )</content> Urobilinogen 0.2-1.0 <content Saint [Units/volume] styleCode="Paula Washburns in Urine by d">Urine Medical Test strip Urobilinogen Center </content>0.2 MG/DL<content styleCode="Esther lics"> (0.2-1.0 MG/DL)</conten t> UNK 0-3 <content Saint styleCode="Paula Marshall d">Urine White Medical Blood Cell Center </content>3-5 HPF<content styleCode="Esther lics"> (0-3 HPF)</content> UNK NEGATIVE <content Saint styleCode="Paula Marshall d">Urine Medical Bacteria Center </content>FEW HPF<content styleCode="Esther lics"> (NEGATIVE HPF)</content> UNK 0-3 <content Saint styleCode="Paula Marshall d">Urine Red Medical Blood Cell Center </content>5 - 10 HPF<content styleCode="Esther lics"> (0-3 HPF)</content> UNK <content Saint styleCode="Paula Marshall d">Epithelial Medical Cell Center </content>5 - 10 LPF (Reference Range: not available)<br/ > ID Date Data Source HematologyRou.[id number] 08/31/2018 07:03:00 AM EDT [facility] 0400 Name Value Range Interpretation Description Data Sup porting Code Source(s) Document(s ) Leukocytes 4.4-11.0 Above high <content Saint [#/volume] in normal styleCode="Bold Marshall Blood by ">White Blood Medical Automated count Cell Count Center </content>12.91 KCUMM H<content styleCode="Ital ics"> (4.4-11.0 KCUMM)</content > Erythrocytes 4.0-5.1 <content Saint [#/volume] in styleCode="Bold Marshall Blood by ">Red Blood Medical Automated count Cell Count Center </content>4.75 MCUMM<content styleCode="Ital ics"> (4.0-5.1 MCUMM)</content > Hematocrit 36.0-46. <content Saint [Volume 0 styleCode="Bold Marshall Fraction] of ">Hematocrit Medical Blood by </content>38.0 Center Automated count %<content styleCode="Ital ics"> (36.0-46.0 %)</content> Erythrocyte mean 80.0-100 <content Saint corpuscular .0 styleCode="Bold Marshall volume [Entitic ">Mean Medical volume] by Corpuscular Center Automated count Volume </content>80.0 FL<content styleCode="Ital ics"> (80.0-100.0 FL)</content> Hemoglobin 12.3-16. Below low normal <content Saint [Mass/volume] in 0 styleCode="Bold Marshall Blood ">Hemoglobin Medical </content>11.9 Center G/DL L<content styleCode="Ital ics"> (12.3-16.0 G/DL)</content> Erythrocyte mean 26.0-34. Below low normal <content Saint corpuscular 0 styleCode="Bold Marshall hemoglobin ">Mean Medical [Entitic mass] Corposcular Center by Automated Hemoglobin count </content>25.1 PG L<content styleCode="Ital ics"> (26.0-34.0 PG)</content> Erythrocyte mean 32.0-37. Below low normal <content Saint corpuscular 0 styleCode="Bold Marshall hemoglobin ">Mean Corpus. Medical concentration Hgb Center [Mass/volume] by Concentration Automated count (MCHC) </content>31.3 G/DL L<content styleCode="Ital ics"> (32.0-37.0 G/DL)</content> Erythrocyte 11.5-14. Above high <content Saint distribution 5 normal styleCode="Bold Marshall width [Ratio] by ">Red Cell Medical Automated count Distribution Center Width </content>17.8 % H<content styleCode="Ital ics"> (11.5-14.5 %)</content> Platelets 130-400 <content Saint [#/volume] in styleCode="Bold Marshall Blood by ">Platelet Medical Automated count Count Center </content>352 KCUMM<content styleCode="Ital ics"> (130-400 KCUMM)</content > UNK 0 <content Saint styleCode="Bold Marshall ">Nucleated Red Medical Blood Cell Center </content>0.0 /100<content styleCode="Ital ics"> (0 /100)</content> Platelet mean 8.0-11.0 <content Saint volume [Entitic styleCode="Bold Marshall volume] in Blood ">Mean Platelet Medical by Automated Volume Center count </content>9.4 FL<content styleCode="Ital ics"> (8.0-11.0 FL)</content> UNK 0.0 <content Saint styleCode="Bold Marshall ">Nucleated Red Medical Blood Cell Center Count </content>0.00 KCUMM<content styleCode="Ital ics"> (0.0 KCUMM)</content > ID Date Data Source GFR(Creatinine).[id number] 08/31/2018 07:03:00 AM EDT [facility] 0-0400 Name Value Range Interpretation Code Description Data Margie rce(s) Supporting Document(s ) UNK > 60 <content [facility] styleCode="Bold"> Medical Cent er EGFR </content>112 GFR<content styleCode="Italic s"> (> 60 GFR)</content> ID Date Data Source CardiacMarkers.[id number] 08/31/2018 07:03:00 AM EDT [facility] -0400 Name Value Range Interpretation Description Data Sup porting Code Source(s) Document(s ) Troponin < 0.034 <content Saint I.cardiac styleCode="Bold Marshall [Mass/volume ">Troponin I Medical ] in Serum </content>< Center or Plasma 0.012 NG/ML<content styleCode="Ital ics"> (< 0.034 NG/ML)</content > ID Date Data Source [id number] 08/31/2018 07:03:00 AM EDT [facility] Name Value Range Interpretation Description Data Sup porting Code Source(s) Document(s ) Carbon 22-30 <content Saint dioxide, total styleCode="Paula Marshall [Moles/volume] d">Carbon Medical in Serum or Dioxide Center Plasma </content>29 MEQ/L<content styleCode="Esther lics"> (22-30 MEQ/L)</conten t> Chloride 98-107 <content Saint [Moles/volume] styleCode="Paula Marshall in Serum or d">Chloride Medical Plasma </content>103 Center MEQ/L<content styleCode="Esther lics"> (98-107 MEQ/L)</conten t> Sodium 137-145 <content Saint [Moles/volume] styleCode="Paula Washburns in Serum or d">Sodium Medical Plasma </content>143 Center MEQ/L<content styleCode="Esther lics"> (137-145 MEQ/L)</conten t> UNK 7-17 <content Saint styleCode="Paula Washburns d">BUN Medical </content>9 Center MG/DL<content styleCode="Esther lics"> (7-17 MG/DL)</conten t> Potassium 3.5-5.3 <content Saint [Moles/volume] styleCode="Paula Washburns in Serum or d">Potassium Medical Plasma </content>3.5 Center MEQ/L<content styleCode="Esther lics"> (3.5-5.3 MEQ/L)</conten t> Creatinine 0.5-1.3 <content Saint [Mass/volume] styleCode="Paula Washburns in Serum or d">Creatinine Medical Plasma </content>0.7 Center MG/DL<content styleCode="Esther lics"> (0.5-1.3 MG/DL)</conten t> UNK > 60 <content Saint styleCode="Paula Washburns d">EGFR Medical </content>112 Center GFR<content styleCode="Esther lics"> (> 60 GFR)</content> Glucose 74-106 Above high normal <content Saint [Mass/volume] styleCode="Paula Washburns in Serum or d">Glucose Medical Plasma </content>150 Center MG/DL H<content styleCode="Esther lics"> (74-106 MG/DL)</conten t> Calcium 8.4-10.2 <content Saint [Mass/volume] styleCode="Paula Washburns in Serum or d">Calcium Medical Plasma </content>9.7 Center MG/DL<content styleCode="Esther lics"> (8.4-10.2 MG/DL)</conten t> Procedure Social History Code Duration Value Status Description Data Source(s ) Smoking 07/06/2019 07:53:00 Daily Smoker completed Daily Smoker S [facility] PM EDT Center Smoking 07/06/2019 07:18:00 Daily Smoker completed Daily Smoker S [facility] EDT Center Smoking 07/05/2019 08:35:00 Daily Smoker completed Daily Smoker S [facility] EDT Center Smoking 07/05/2019 08:23:00 Daily Smoker completed Daily Smoker S [facility] EDT Center Smoking 05/19/2019 01:50:00 Daily Smoker completed Daily Smoker S [facility] EDT Center Smoking 05/19/2019 01:46:00 Daily Smoker completed Daily Smoker S [facility] EDT Center Smoking 08/31/2018 09:09:00 Daily Smoker completed Daily Smoker S [facility] EDT Center Smoking 08/31/2018 07:02:00 Daily Smoker completed Daily Smoker S [facility] EDT Center Smoking 08/31/2018 06:20:00 Daily Smoker completed Daily Smoker S [facility] EDT Center Smoking 08/31/2018 06:15:00 Daily Smoker completed Daily Smoker S [facility] EDT Center Vital Signs ID Date Data Source UNK Name Value Range Interpretation Code Description Data Source(s) Diastolic blood 65 {} Normal (applies to 65 {} [place] pressure non-numeric results) [facility] Systolic blood 100 {} Normal (applies to 100 {} [place] pressure non-numeric results) [facility] First Respiration 19.0000 {} Normal (applies to 19.0000 {} [facility] rate Set non-numeric results) [facility] Heart rate 67.0000 {} Normal (applies to 67.0000 {} [place] non-numeric results) [facility] Body temperature 99.5000 {} Normal (applies to 99.5000 {} [facility] non-numeric results) [facility] wt - obtain Normal (applies to {} [facility] non-numeric results) [facility] weight - kg 65.0000 {} Normal (applies to 65.0000 {} [facility] non-numeric results) [facility] Body weight 50.510947 50.821831 kg [facility] hs Measured kg Medical Center Body temperature 36.362651 36.113437 [facility] Respiratory rate 18 /min 18 /min [facility] Oxygen saturation 98 % 98 % [facility] Arterial blood Medical Center by Pulse oximetry Heart rate 81 /min 81 /min [facility] Body height 164.747356 164.524762 cm [facility] Diastolic blood 90 mm[Hg] 90 mm[Hg] [facility] pressure Medical [place] Systolic blood 145 mm[Hg] 145 mm[Hg] [facility] Body mass index 18.3 kg/m2 18.3 kg/m2 [facility] (BMI) [Ratio] Medical [address] Body temperature 36.776217 36.384706 [facility] Respiratory rate 18 /min 18 /min [facility] Oxygen saturation 99 % 99 % [facility] Arterial blood [facility] Center by Pulse oximetry Heart rate 91 /min 91 /min [facility] Diastolic blood 74 mm[Hg] 74 mm[Hg] [facility] Systolic blood 125 mm[Hg] 125 mm[Hg] [facility] Body temperature 36.229508 36.494779 [facility] Oxygen saturation 62 % 62 % [facility] Arterial blood [facility] Center by Pulse oximetry Heart rate 62 /min 62 /min [facility] Diastolic blood 66 mm[Hg] 66 mm[Hg] [facility] Systolic blood 118 mm[Hg] 118 mm[Hg] [facility] Respiratory rate 18 /min 18 /min [facility] Body temperature 36.256430 36.824155 [facility] Respiratory rate 18 /min 18 /min [facility] Oxygen saturation 97 % 97 % [facility] Arterial blood [facility] Center by Pulse oximetry Heart rate 122 /min 122 /min [facility] Diastolic blood 71 mm[Hg] 71 mm[Hg] [facility] Systolic blood 127 mm[Hg] 127 mm[Hg] [facility] Body temperature 36.730241 36.280033 [facility] Respiratory rate 17 /min 17 /min [facility] Oxygen saturation 98 % 98 % [facility] Arterial blood [facility] by Pulse oximetry Heart rate 76 /min 76 /min [facility] Diastolic blood 76 mm[Hg] 76 mm[Hg] [facility] Systolic blood 132 mm[Hg] 132 mm[Hg] [facility] Body temperature 36.566945 36.748[address] [facility] Respiratory rate 17 /min 17 /min [facility] Oxygen saturation 98 % 98 % [facility] Arterial blood [facility] Center by Pulse oximetry Heart rate 88 /min 88 /min [facility] Diastolic blood 80 mm[Hg] 80 mm[Hg] [facility] Systolic blood 129 mm[Hg] 129 mm[Hg] [facility] Body temperature 481.259861 481.436306 [facility] Respiratory rate 19 /min 19 /min [facility] Oxygen saturation 99 % 99 % [facility] by Pulse oximetry Heart rate 87 /min 87 /min [facility] Diastolic blood 77 mm[Hg] 77 mm[Hg] [facility] Systolic blood 150 mm[Hg] 150 mm[Hg] [facility] Patient Treatment Plan of Care Planned Activity Planned Date Details Description Data Source (s) 0.9% NaCl IV 11/20/2019 01:52:56 [facility] Ibuprofen 400 MG Oral [facility] benzonatate 100 MG Oral [facility] Capsule [place] doxycycline hyclate 100 [facility] Oral Capsule Center Prednisone 20 MG Oral [facility] Albuterol 0.09 [facility] MG/ACTUAT Metered Dose Cente r Inhaler
[2019-11-22] MEDS: AMOX TR/POT CLAV 875MG/125MG TABLETS (FP) PO SCH ×3 (19:38→19:42)
[2019-11-22] MEDS: THIAMINE HCL 100 MG TABLET (FP) PO SCH (21:18)
[2019-11-22] MEDS: MELATONIN 5 MG TABLETS PO SCH (21:19)
[2019-11-23] MEDS ORDERED: METHADONE HCL 10 MG TABLET PO SCH (06:00)
[2019-11-23] MEDS ORDERED: METHADONE HCL 10 MG TABLET ONE (06:32)
[2019-11-23] MEDS ORDERED: METHADONE HCL 40 MG DISPERSABLE TABLET ONE (06:33)
[2019-11-23] MEDS: METHADONE 80 MG, METHADONE 10 MG PO SCH (06:39)
[2019-11-23] MEDS: AMOX TR/POT CLAV 875MG/125MG TABLETS (FP) PO SCH ×2 (07:00→21:45)
[2019-11-23] MEDS: NICOTINE 14 MG/24 HOURS TOPICAL PATCH TD SCH (09:13)
[2019-11-23] MEDS: PRENATAL VITAMINS W/ FOLIC ACID TABLET (FP) PO SCH (09:13)
[2019-11-23 09:40] LABS: HEMATOCRIT 37.6 % (32.4-45.2); HEMOGLOBIN 12.3 GM/dL (10.7-15.3); MCH 28.6 pg (25.7-33.7); MCHC 32.7 g/dl (32.0-36.0); MEAN CELL VOLUME 87.5 fl (80-96); MEAN PLT VOLUME 8.1 fl (7.5-11.1); PLATELET COUNT 381 K/MM3 (134-434); RDW 14.4 % (11.6-15.6); WHITE BLOOD COUNT 10.6 K/mm3 (4.0-10.0)
[2019-11-23 09:52] LABS: ALBUMIN 3.2 g/dl (3.4-5.0); BILIRUBIN,TOTAL 0.5 mg/dL (0.2-1); BLOOD UREA NITROGEN 16.3 mg/dL (7-18); CALCIUM 9.2 mg/dL (8.5-10.1); POTASSIUM 5.2 mmol/L (3.5-5.1); TOT PROT 7.9 g/dl (6.4-8.2)
[2019-11-23 11:04] LABS: SICKLE CELL SCREEN NEGATIVE (NEGATIVE)
[2019-11-23] MEDS: PATIENT'S OWN MEDICATION (NON-FORMULARY) (Omeprazole [Omeprazole] 40 MG) PO SCH (11:17)
--- NOTE | 2019-11-23 13:13 | PN ---
S Progress Note Note: Result of Rehab Admission RPR noted: Reactive, Titer 1:1. Patient reports that she completed treatment for Syphilis in the past. Satnam Pacheco NP
[2019-11-23 17:42] LABS: URINE APPEARANCE CLEAR; URINE BILIRUBIN NEGATIVE (NEGATIVE); URINE COLOR YELLOW; URINE GLUCOSE (UA) NEGATIVE (NEGATIVE); URINE KETONE NEGATIVE (NEGATIVE); URINE LEUK ESTERASE NEGATIVE (NEGATIVE); URINE NITRITE NEGATIVE (NEGATIVE); URINE PROTEIN NEGATIVE (NEGATIVE); URINE UROBILINOGEN 0.2 mg/dL (0.2-1.0)
[2019-11-23] MEDS ORDERED: PT OWN MED DRAWER 7, Y5N ONE (21:45)
[2019-11-23] MEDS: MELATONIN 5 MG TABLETS PO SCH (21:46)
[2019-11-23] MEDS: GABAPENTIN 300 MG CAPSULE PO SCH (21:46)
[2019-11-23] MEDS: THIAMINE HCL 100 MG TABLET (FP) PO SCH (21:46)
--- NOTE | 2019-11-24 00:55 | PN ---
S Progress Note Note: repeat cmp for hemolyzed specimen with k 5.2
[2019-11-24] MEDS ORDERED: METHADONE HCL 10 MG TABLET ONE (03:11)
[2019-11-24] MEDS ORDERED: METHADONE HCL 40 MG DISPERSABLE TABLET ONE (03:11)
[2019-11-24] MEDS: PATIENT'S OWN MEDICATION (NON-FORMULARY) (Omeprazole [Omeprazole] 40 MG) PO SCH (06:43)
[2019-11-24] MEDS: METHADONE 80 MG, METHADONE 10 MG PO SCH (06:44)
[2019-11-24] MEDS: AMOX TR/POT CLAV 875MG/125MG TABLETS (FP) PO SCH ×2 (07:03→22:15)
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
[2019-11-24] MEDS: NICOTINE 14 MG/24 HOURS TOPICAL PATCH TD SCH (09:54)
[2019-11-24] MEDS: ESCITALOPRAM OXALATE 20 MG TABLET PO SCH (09:54)
[2019-11-24] MEDS: PRENATAL VITAMINS W/ FOLIC ACID TABLET (FP) PO SCH (09:55)
[2019-11-24] MEDS: QUEtiapine FUMARATE 50 MG TABLET PO SCH (09:55)
[2019-11-24] MEDS ORDERED: PT OWN MED DRAWER 7, Y5N ONE (10:14)
[2019-11-24 11:01] LABS: ALBUMIN 3.4 g/dl (3.4-5.0); BILIRUBIN,TOTAL 0.4 mg/dL (0.2-1); BLOOD UREA NITROGEN 18.6 mg/dL (7-18); CREATININE 1.1 mg/dL (0.55-1.3); POTASSIUM 4.9 mmol/L (3.5-5.1)
[2019-11-24] MEDS: THIAMINE HCL 100 MG TABLET (FP) PO SCH (21:22)
[2019-11-24] MEDS: GABAPENTIN 300 MG CAPSULE PO SCH (21:23)
[2019-11-24] MEDS: QUEtiapine FUMARATE 100 MG TABLET (FP) PO SCH (21:23)
[2019-11-24] MEDS: MELATONIN 5 MG TABLETS PO SCH (21:23)
[2019-11-25] MEDS ORDERED: PT OWN MED DRAWER 7, Y5N ONE (00:27)
[2019-11-25] MEDS ORDERED: METHADONE HCL 40 MG DISPERSABLE TABLET ONE (03:17)
[2019-11-25] MEDS ORDERED: METHADONE HCL 10 MG TABLET ONE (03:17)
[2019-11-25] MEDS: PATIENT'S OWN MEDICATION (NON-FORMULARY) (Omeprazole [Omeprazole] 40 MG) PO SCH (06:48)
[2019-11-25] MEDS: METHADONE 80 MG, METHADONE 10 MG PO SCH (06:50)
[2019-11-25] MEDS: AMOX TR/POT CLAV 875MG/125MG TABLETS (FP) PO SCH ×2 (07:05→21:39)
[2019-11-25] MEDS: ESCITALOPRAM OXALATE 20 MG TABLET PO SCH (09:59)
[2019-11-25] MEDS: QUEtiapine FUMARATE 50 MG TABLET PO SCH (09:59)
[2019-11-25] MEDS: NICOTINE 14 MG/24 HOURS TOPICAL PATCH TD SCH (09:59)
[2019-11-25] MEDS: PRENATAL VITAMINS W/ FOLIC ACID TABLET (FP) PO SCH (09:59)
[2019-11-25] MEDS: THIAMINE HCL 100 MG TABLET (FP) PO SCH (21:38)
[2019-11-25] MEDS: MELATONIN 5 MG TABLETS PO SCH (21:39)
[2019-11-25] MEDS: QUEtiapine FUMARATE 100 MG TABLET (FP) PO SCH (21:39)
[2019-11-25] MEDS: GABAPENTIN 300 MG CAPSULE PO SCH (21:39)
[2019-11-26] MEDS ORDERED: METHADONE HCL 40 MG DISPERSABLE TABLET ONE (05:43)
[2019-11-26] MEDS ORDERED: METHADONE HCL 10 MG TABLET ONE (05:43)
[2019-11-26] MEDS ORDERED: PT OWN MED DRAWER 7, Y5N ONE ×2 (05:45→09:08)
[2019-11-26] MEDS: METHADONE 80 MG, METHADONE 10 MG PO SCH (06:14)
[2019-11-26] MEDS: ACETAMINOPHEN 325 MG TABLET (FP) PO PRN ×2 (06:15→18:34)
[2019-11-26] MEDS: PATIENT'S OWN MEDICATION (NON-FORMULARY) (Omeprazole [Omeprazole] 40 MG) PO SCH (06:15)
[2019-11-26] MEDS: AMOX TR/POT CLAV 875MG/125MG TABLETS (FP) PO SCH ×2 (07:33→21:18)
[2019-11-26] MEDS: QUEtiapine FUMARATE 50 MG TABLET PO SCH (09:47)
[2019-11-26] MEDS: ESCITALOPRAM OXALATE 20 MG TABLET PO SCH (09:47)
[2019-11-26] MEDS: NICOTINE 14 MG/24 HOURS TOPICAL PATCH TD SCH (09:47)
[2019-11-26] MEDS: PRENATAL VITAMINS W/ FOLIC ACID TABLET (FP) PO SCH (09:47)
[2019-11-26] MEDS: THIAMINE HCL 100 MG TABLET (FP) PO SCH (21:17)
[2019-11-26] MEDS: MELATONIN 5 MG TABLETS PO SCH (21:18)
[2019-11-26] MEDS: QUEtiapine FUMARATE 100 MG TABLET (FP) PO SCH (21:18)
[2019-11-26] MEDS: GABAPENTIN 300 MG CAPSULE PO SCH (21:18)
[2019-11-27] MEDS ORDERED: METHADONE HCL 10 MG TABLET ONE (03:24)
[2019-11-27] MEDS ORDERED: METHADONE HCL 40 MG DISPERSABLE TABLET ONE (03:24)
[2019-11-27] MEDS: METHADONE 80 MG, METHADONE 10 MG PO SCH (06:37)
[2019-11-27] MEDS: PATIENT'S OWN MEDICATION (NON-FORMULARY) (Omeprazole [Omeprazole] 40 MG) PO SCH (06:38)
[2019-11-27] MEDS: ACETAMINOPHEN 325 MG TABLET (FP) PO PRN (06:39)
[2019-11-27] MEDS: AMOX TR/POT CLAV 875MG/125MG TABLETS (FP) PO SCH ×2 (07:12→21:29)
[2019-11-27] MEDS: PRENATAL VITAMINS W/ FOLIC ACID TABLET (FP) PO SCH (09:39)
[2019-11-27] MEDS: QUEtiapine FUMARATE 50 MG TABLET PO SCH (09:39)
[2019-11-27] MEDS: ESCITALOPRAM OXALATE 20 MG TABLET PO SCH (09:39)
[2019-11-27] MEDS: NICOTINE 14 MG/24 HOURS TOPICAL PATCH TD SCH (09:39)
[2019-11-27] MEDS: THIAMINE HCL 100 MG TABLET (FP) PO SCH (21:26)
[2019-11-27] MEDS: GABAPENTIN 300 MG CAPSULE PO SCH (21:28)
[2019-11-27] MEDS: QUEtiapine FUMARATE 100 MG TABLET (FP) PO SCH (21:28)
[2019-11-27] MEDS: IBUPROFEN 400 MG TABLET (FP) PO PRN (21:28)
[2019-11-27] MEDS: MELATONIN 5 MG TABLETS PO SCH (21:29)
[2019-11-28] MEDS ORDERED: PT OWN MED DRAWER 7, Y5N ONE ×3 (03:49→07:23)
[2019-11-28] MEDS ORDERED: METHADONE HCL 10 MG TABLET ONE (03:54)
[2019-11-28] MEDS ORDERED: METHADONE HCL 40 MG DISPERSABLE TABLET ONE (03:55)
[2019-11-28] MEDS: AMOX TR/POT CLAV 875MG/125MG TABLETS (FP) PO SCH ×2 (07:09→21:54)
[2019-11-28] MEDS: METHADONE 80 MG, METHADONE 10 MG PO SCH (07:09)
[2019-11-28] MEDS: PATIENT'S OWN MEDICATION (NON-FORMULARY) (Omeprazole [Omeprazole] 40 MG) PO SCH (07:10)
[2019-11-28] MEDS: ESCITALOPRAM OXALATE 20 MG TABLET PO SCH (09:53)
[2019-11-28] MEDS: QUEtiapine FUMARATE 50 MG TABLET PO SCH (09:53)
[2019-11-28] MEDS: PRENATAL VITAMINS W/ FOLIC ACID TABLET (FP) PO SCH (09:54)
[2019-11-28] MEDS: NICOTINE 14 MG/24 HOURS TOPICAL PATCH TD SCH (09:54)
[2019-11-28] MEDS: IBUPROFEN 400 MG TABLET (FP) PO PRN (09:54)
[2019-11-28] MEDS: THIAMINE HCL 100 MG TABLET (FP) PO SCH (21:12)
[2019-11-28] MEDS: ACETAMINOPHEN 325 MG TABLET (FP) PO PRN (21:12)
[2019-11-28] MEDS: QUEtiapine FUMARATE 100 MG TABLET (FP) PO SCH (21:13)
[2019-11-28] MEDS: GABAPENTIN 300 MG CAPSULE PO SCH (21:13)
[2019-11-28] MEDS: MELATONIN 5 MG TABLETS PO SCH (21:14)
[2019-11-29] MEDS ORDERED: METHADONE HCL 10 MG TABLET ONE (03:17)
[2019-11-29] MEDS ORDERED: METHADONE HCL 40 MG DISPERSABLE TABLET ONE (03:17)
[2019-11-29] MEDS ORDERED: PT OWN MED DRAWER 7, Y5N ONE ×2 (03:18→19:33)
[2019-11-29] MEDS: PATIENT'S OWN MEDICATION (NON-FORMULARY) (Omeprazole [Omeprazole] 40 MG) PO SCH (06:49)
[2019-11-29] MEDS: METHADONE 80 MG, METHADONE 10 MG PO SCH (06:49)
[2019-11-29] MEDS: AMOX TR/POT CLAV 875MG/125MG TABLETS (FP) PO SCH (07:04)
[2019-11-29] MEDS: ACETAMINOPHEN 325 MG TABLET (FP) PO PRN (07:49)
[2019-11-29] MEDS: NAPROXEN 375 MG TABLET PO SCH ×2 (09:00→22:00)
[2019-11-29] MEDS: ESCITALOPRAM OXALATE 20 MG TABLET PO SCH (09:55)
[2019-11-29] MEDS: QUEtiapine FUMARATE 50 MG TABLET PO SCH (09:56)
[2019-11-29] MEDS: NICOTINE 14 MG/24 HOURS TOPICAL PATCH TD SCH (09:56)
[2019-11-29] MEDS: PRENATAL VITAMINS W/ FOLIC ACID TABLET (FP) PO SCH (09:56)
[2019-11-29] MEDS: MELATONIN 5 MG TABLETS PO SCH (21:59)
[2019-11-29] MEDS: THIAMINE HCL 100 MG TABLET (FP) PO SCH (22:01)
[2019-11-29] MEDS: QUEtiapine FUMARATE 100 MG TABLET (FP) PO SCH (22:01)
[2019-11-29] MEDS: GABAPENTIN 300 MG CAPSULE PO SCH (22:01)
[2019-11-30] MEDS ORDERED: METHADONE HCL 10 MG TABLET ONE (05:22)
[2019-11-30] MEDS ORDERED: METHADONE HCL 40 MG DISPERSABLE TABLET ONE (05:22)
[2019-11-30] MEDS ORDERED: METHADONE HCL 5 MG TABLET PO SCH (06:00)
[2019-11-30] MEDS: PATIENT'S OWN MEDICATION (NON-FORMULARY) (Omeprazole [Omeprazole] 40 MG) PO SCH (06:08)
[2019-11-30] MEDS: METHADONE 80 MG, METHADONE 10 MG PO SCH (06:08)
[2019-11-30] MEDS ORDERED: PT OWN MED DRAWER 7, Y5N ONE ×4 (06:52→23:15)
[2019-11-30] MEDS: QUEtiapine FUMARATE 50 MG TABLET PO SCH (09:53)
[2019-11-30] MEDS: ESCITALOPRAM OXALATE 20 MG TABLET PO SCH (09:53)
[2019-11-30] MEDS: NICOTINE 14 MG/24 HOURS TOPICAL PATCH TD SCH (09:53)
[2019-11-30] MEDS: PRENATAL VITAMINS W/ FOLIC ACID TABLET (FP) PO SCH (09:53)
[2019-11-30] MEDS: NAPROXEN 375 MG TABLET PO SCH ×2 (09:54→21:23)
[2019-11-30] MEDS ORDERED: MASKS NR ONE (17:38)
[2019-11-30] MEDS: THIAMINE HCL 100 MG TABLET (FP) PO SCH (21:21)
[2019-11-30] MEDS: ACETAMINOPHEN 325 MG TABLET (FP) PO PRN (21:22)
[2019-11-30] MEDS: QUEtiapine FUMARATE 100 MG TABLET (FP) PO SCH (21:23)
[2019-11-30] MEDS: MELATONIN 5 MG TABLETS PO SCH (21:24)
[2019-11-30] MEDS: GABAPENTIN 300 MG CAPSULE PO SCH (21:24)
[2019-12-01] MEDS ORDERED: METHADONE HCL 40 MG DISPERSABLE TABLET ONE (05:24)
[2019-12-01] MEDS ORDERED: METHADONE HCL 10 MG TABLET ONE (05:24)
[2019-12-01] MEDS: METHADONE 80 MG, METHADONE 10 MG PO SCH (06:29)
[2019-12-01] MEDS: PATIENT'S OWN MEDICATION (NON-FORMULARY) (Omeprazole [Omeprazole] 40 MG) PO SCH (06:29)
[2019-12-01] MEDS: ACETAMINOPHEN 325 MG TABLET (FP) PO PRN (06:31)
[2019-12-01] MEDS ORDERED: PT OWN MED DRAWER 7, Y5N ONE ×3 (06:41→22:03)
[2019-12-01] MEDS: QUEtiapine FUMARATE 50 MG TABLET PO SCH (09:33)
[2019-12-01] MEDS: ESCITALOPRAM OXALATE 20 MG TABLET PO SCH (09:33)
[2019-12-01] MEDS: NICOTINE 14 MG/24 HOURS TOPICAL PATCH TD SCH (09:34)
[2019-12-01] MEDS: NAPROXEN 375 MG TABLET PO SCH ×2 (09:34→21:33)
[2019-12-01] MEDS: PRENATAL VITAMINS W/ FOLIC ACID TABLET (FP) PO SCH (09:34)
[2019-12-01] MEDS: THIAMINE HCL 100 MG TABLET (FP) PO SCH (21:32)
[2019-12-01] MEDS: QUEtiapine FUMARATE 100 MG TABLET (FP) PO SCH (21:33)
[2019-12-01] MEDS: GABAPENTIN 300 MG CAPSULE PO SCH (21:33)
[2019-12-01] MEDS: MELATONIN 5 MG TABLETS PO SCH (21:35)
[2019-12-02] MEDS ORDERED: METHADONE HCL 10 MG TABLET ONE (03:23)
[2019-12-02] MEDS ORDERED: METHADONE HCL 40 MG DISPERSABLE TABLET ONE (03:23)
[2019-12-02] MEDS: METHADONE 80 MG, METHADONE 10 MG PO SCH (06:44)
[2019-12-02] MEDS ORDERED: PT OWN MED DRAWER 7, Y5N ONE ×2 (06:45→08:24)
[2019-12-02] MEDS: PATIENT'S OWN MEDICATION (NON-FORMULARY) (Omeprazole [Omeprazole] 40 MG) PO SCH (06:45)
[2019-12-02] MEDS: ACETAMINOPHEN 325 MG TABLET (FP) PO PRN (06:46)
[2019-12-02] MEDS: PRENATAL VITAMINS W/ FOLIC ACID TABLET (FP) PO SCH (09:48)
[2019-12-02] MEDS: ESCITALOPRAM OXALATE 20 MG TABLET PO SCH (09:48)
[2019-12-02] MEDS: QUEtiapine FUMARATE 50 MG TABLET PO SCH (09:48)
[2019-12-02] MEDS: NAPROXEN 375 MG TABLET PO SCH ×2 (09:49→21:18)
[2019-12-02] MEDS: NICOTINE 14 MG/24 HOURS TOPICAL PATCH TD SCH (09:50)
[2019-12-02] MEDS: THIAMINE HCL 100 MG TABLET (FP) PO SCH (21:16)
[2019-12-02] MEDS: QUEtiapine FUMARATE 100 MG TABLET (FP) PO SCH (21:17)
[2019-12-02] MEDS: GABAPENTIN 300 MG CAPSULE PO SCH (21:17)
[2019-12-02] MEDS: MELATONIN 5 MG TABLETS PO SCH (21:18)
[2019-12-03] MEDS ORDERED: METHADONE HCL 40 MG DISPERSABLE TABLET ONE (03:32)
[2019-12-03] MEDS ORDERED: METHADONE HCL 10 MG TABLET ONE (03:32)
[2019-12-03] MEDS: METHADONE 80 MG, METHADONE 10 MG PO SCH (06:32)
[2019-12-03] MEDS: ACETAMINOPHEN 325 MG TABLET (FP) PO PRN (06:32)
[2019-12-03] MEDS: PATIENT'S OWN MEDICATION (NON-FORMULARY) (Omeprazole [Omeprazole] 40 MG) PO SCH (06:33)
[2019-12-03] MEDS ORDERED: PT OWN MED DRAWER 7, Y5N ONE ×3 (07:55→20:38)
[2019-12-03] MEDS: ESCITALOPRAM OXALATE 20 MG TABLET PO SCH (09:42)
[2019-12-03] MEDS: NAPROXEN 375 MG TABLET PO SCH ×2 (09:42→21:25)
[2019-12-03] MEDS: PRENATAL VITAMINS W/ FOLIC ACID TABLET (FP) PO SCH (09:43)
[2019-12-03] MEDS: QUEtiapine FUMARATE 50 MG TABLET PO SCH (09:43)
[2019-12-03] MEDS: NICOTINE 14 MG/24 HOURS TOPICAL PATCH TD SCH (09:44)
[2019-12-03] MEDS: GABAPENTIN 300 MG CAPSULE PO SCH (21:24)
[2019-12-03] MEDS: QUEtiapine FUMARATE 100 MG TABLET (FP) PO SCH (21:24)
[2019-12-03] MEDS: THIAMINE HCL 100 MG TABLET (FP) PO SCH (21:25)
[2019-12-03] MEDS: MELATONIN 5 MG TABLETS PO SCH (21:25)
[2019-12-04] MEDS ORDERED: METHADONE HCL 10 MG TABLET ONE (03:29)
[2019-12-04] MEDS ORDERED: PT OWN MED DRAWER 7, Y5N ONE ×2 (03:29→07:06)
[2019-12-04] MEDS ORDERED: METHADONE HCL 40 MG DISPERSABLE TABLET ONE (03:29)
[2019-12-04] MEDS: PATIENT'S OWN MEDICATION (NON-FORMULARY) (Omeprazole [Omeprazole] 40 MG) PO SCH (06:44)
[2019-12-04] MEDS: ACETAMINOPHEN 325 MG TABLET (FP) PO PRN (06:44)
[2019-12-04] MEDS: METHADONE 80 MG, METHADONE 10 MG PO SCH (06:45)
[2019-12-04] MEDS: QUEtiapine FUMARATE 50 MG TABLET PO SCH (09:42)
[2019-12-04] MEDS: NICOTINE 14 MG/24 HOURS TOPICAL PATCH TD SCH (09:42)
[2019-12-04] MEDS: NAPROXEN 375 MG TABLET PO SCH ×2 (09:42→21:16)
[2019-12-04] MEDS: ESCITALOPRAM OXALATE 20 MG TABLET PO SCH (09:42)
[2019-12-04] MEDS: PRENATAL VITAMINS W/ FOLIC ACID TABLET (FP) PO SCH (09:42)
[2019-12-04] MEDS: QUEtiapine FUMARATE 100 MG TABLET (FP) PO SCH (21:15)
[2019-12-04] MEDS: GABAPENTIN 300 MG CAPSULE PO SCH (21:15)
[2019-12-04] MEDS: MELATONIN 5 MG TABLETS PO SCH (21:15)
[2019-12-04] MEDS: THIAMINE HCL 100 MG TABLET (FP) PO SCH (21:15)
[2019-12-05] MEDS ORDERED: METHADONE HCL 40 MG DISPERSABLE TABLET ONE (03:19)
[2019-12-05] MEDS ORDERED: METHADONE HCL 10 MG TABLET ONE (03:19)
[2019-12-05] MEDS: ACETAMINOPHEN 325 MG TABLET (FP) PO PRN (06:21)
[2019-12-05] MEDS: METHADONE 80 MG, METHADONE 10 MG PO SCH (06:21)
[2019-12-05] MEDS: PATIENT'S OWN MEDICATION (NON-FORMULARY) (Omeprazole [Omeprazole] 40 MG) PO SCH (06:22)
[2019-12-05] MEDS ORDERED: PT OWN MED DRAWER 7, Y5N ONE (08:25)
[2019-12-05] MEDS: ESCITALOPRAM OXALATE 20 MG TABLET PO SCH (09:46)
[2019-12-05] MEDS: PRENATAL VITAMINS W/ FOLIC ACID TABLET (FP) PO SCH (09:47)
[2019-12-05] MEDS: NAPROXEN 375 MG TABLET PO SCH ×2 (09:47→21:29)
[2019-12-05] MEDS: NICOTINE 14 MG/24 HOURS TOPICAL PATCH TD SCH (09:47)
[2019-12-05] MEDS: QUEtiapine FUMARATE 50 MG TABLET PO SCH (09:48)
[2019-12-05] MEDS: THIAMINE HCL 100 MG TABLET (FP) PO SCH (21:27)
[2019-12-05] MEDS: MELATONIN 5 MG TABLETS PO SCH (21:28)
[2019-12-05] MEDS: GABAPENTIN 300 MG CAPSULE PO SCH (21:28)
[2019-12-05] MEDS: QUEtiapine FUMARATE 100 MG TABLET (FP) PO SCH (21:28)
[2019-12-06] MEDS ORDERED: METHADONE HCL 10 MG TABLET ONE (05:50)
[2019-12-06] MEDS ORDERED: METHADONE HCL 40 MG DISPERSABLE TABLET ONE (05:50)
[2019-12-06] MEDS: METHADONE 80 MG, METHADONE 10 MG PO SCH (06:40)
[2019-12-06] MEDS: PATIENT'S OWN MEDICATION (NON-FORMULARY) (Omeprazole [Omeprazole] 40 MG) PO SCH (06:40)
[2019-12-06] MEDS: ACETAMINOPHEN 325 MG TABLET (FP) PO PRN (06:42)
[2019-12-06] MEDS ORDERED: PT OWN MED DRAWER 7, Y5N ONE ×2 (09:15→23:06)
[2019-12-06] MEDS: PRENATAL VITAMINS W/ FOLIC ACID TABLET (FP) PO SCH (09:42)
[2019-12-06] MEDS: NAPROXEN 375 MG TABLET PO SCH ×2 (09:43→21:46)
[2019-12-06] MEDS: ESCITALOPRAM OXALATE 20 MG TABLET PO SCH (09:44)
[2019-12-06] MEDS: QUEtiapine FUMARATE 50 MG TABLET PO SCH (09:45)
[2019-12-06] MEDS: NICOTINE 14 MG/24 HOURS TOPICAL PATCH TD SCH (09:46)
[2019-12-06] MEDS: THIAMINE HCL 100 MG TABLET (FP) PO SCH (21:45)
[2019-12-06] MEDS: QUEtiapine FUMARATE 100 MG TABLET (FP) PO SCH (21:45)
[2019-12-06] MEDS: MELATONIN 5 MG TABLETS PO SCH (21:45)
[2019-12-06] MEDS: GABAPENTIN 300 MG CAPSULE PO SCH (21:45)
[2019-12-07] MEDS ORDERED: METHADONE HCL 10 MG TABLET ONE (03:26)
[2019-12-07] MEDS ORDERED: METHADONE HCL 40 MG DISPERSABLE TABLET ONE (03:27)
[2019-12-07] MEDS: METHADONE 80 MG, METHADONE 10 MG PO SCH (06:37)
[2019-12-07] MEDS: PATIENT'S OWN MEDICATION (NON-FORMULARY) (Omeprazole [Omeprazole] 40 MG) PO SCH (06:38)
[2019-12-07] MEDS: ACETAMINOPHEN 325 MG TABLET (FP) PO PRN (06:38)
[2019-12-07] MEDS: NAPROXEN 375 MG TABLET PO SCH ×2 (09:39→21:29)
[2019-12-07] MEDS: PRENATAL VITAMINS W/ FOLIC ACID TABLET (FP) PO SCH (09:40)
[2019-12-07] MEDS: NICOTINE 14 MG/24 HOURS TOPICAL PATCH TD SCH (09:40)
[2019-12-07] MEDS: QUEtiapine FUMARATE 50 MG TABLET PO SCH (09:40)
[2019-12-07] MEDS: ESCITALOPRAM OXALATE 20 MG TABLET PO SCH (09:40)
[2019-12-07] MEDS ORDERED: PT OWN MED DRAWER 7, Y5N ONE ×2 (19:34→22:56)
[2019-12-07] MEDS: GABAPENTIN 300 MG CAPSULE PO SCH (21:28)
[2019-12-07] MEDS: MELATONIN 5 MG TABLETS PO SCH (21:28)
[2019-12-07] MEDS: THIAMINE HCL 100 MG TABLET (FP) PO SCH (21:28)
[2019-12-07] MEDS: QUEtiapine FUMARATE 100 MG TABLET (FP) PO SCH (21:28)
[2019-12-08] MEDS ORDERED: METHADONE HCL 10 MG TABLET ONE (03:49)
[2019-12-08] MEDS ORDERED: METHADONE HCL 40 MG DISPERSABLE TABLET ONE (03:50)
[2019-12-08] MEDS: PATIENT'S OWN MEDICATION (NON-FORMULARY) (Omeprazole [Omeprazole] 40 MG) PO SCH (06:50)
[2019-12-08] MEDS: ACETAMINOPHEN 325 MG TABLET (FP) PO PRN (06:51)
[2019-12-08] MEDS: METHADONE 80 MG, METHADONE 10 MG PO SCH (06:51)
[2019-12-08] MEDS ORDERED: PT OWN MED DRAWER 7, Y5N ONE ×3 (08:37→22:16)
[2019-12-08] MEDS: ESCITALOPRAM OXALATE 20 MG TABLET PO SCH (09:56)
[2019-12-08] MEDS: QUEtiapine FUMARATE 50 MG TABLET PO SCH (09:57)
[2019-12-08] MEDS: NICOTINE 14 MG/24 HOURS TOPICAL PATCH TD SCH (09:57)
[2019-12-08] MEDS: PRENATAL VITAMINS W/ FOLIC ACID TABLET (FP) PO SCH (09:57)
[2019-12-08] MEDS: NAPROXEN 375 MG TABLET PO SCH ×2 (09:58→21:27)
[2019-12-08] MEDS: QUEtiapine FUMARATE 100 MG TABLET (FP) PO SCH (21:26)
[2019-12-08] MEDS: MELATONIN 5 MG TABLETS PO SCH (21:26)
[2019-12-08] MEDS: THIAMINE HCL 100 MG TABLET (FP) PO SCH (21:26)
[2019-12-08] MEDS: GABAPENTIN 300 MG CAPSULE PO SCH (21:26)
[2019-12-09] MEDS ORDERED: METHADONE HCL 10 MG TABLET ONE (03:49)
[2019-12-09] MEDS ORDERED: METHADONE HCL 40 MG DISPERSABLE TABLET ONE (03:49)
[2019-12-09] MEDS: METHADONE 80 MG, METHADONE 10 MG PO SCH (06:28)
[2019-12-09] MEDS: ACETAMINOPHEN 325 MG TABLET (FP) PO PRN (06:28)
[2019-12-09] MEDS: PATIENT'S OWN MEDICATION (NON-FORMULARY) (Omeprazole [Omeprazole] 40 MG) PO SCH (06:29)
[2019-12-09] MEDS ORDERED: PT OWN MED DRAWER 7, Y5N ONE (08:50)
[2019-12-09] MEDS: QUEtiapine FUMARATE 50 MG TABLET PO SCH (10:13)
[2019-12-09] MEDS: NAPROXEN 375 MG TABLET PO SCH ×2 (10:13→21:44)
[2019-12-09] MEDS: PRENATAL VITAMINS W/ FOLIC ACID TABLET (FP) PO SCH (10:13)
[2019-12-09] MEDS: ESCITALOPRAM OXALATE 20 MG TABLET PO SCH (10:13)
[2019-12-09] MEDS: NICOTINE 14 MG/24 HOURS TOPICAL PATCH TD SCH (11:57)
[2019-12-09] MEDS: THIAMINE HCL 100 MG TABLET (FP) PO SCH (21:42)
[2019-12-09] MEDS: MELATONIN 5 MG TABLETS PO SCH (21:42)
[2019-12-09] MEDS: QUEtiapine FUMARATE 100 MG TABLET (FP) PO SCH (21:43)
[2019-12-09] MEDS: GABAPENTIN 300 MG CAPSULE PO SCH (21:43)
[2019-12-10] MEDS ORDERED: METHADONE HCL 10 MG TABLET ONE (05:14)
[2019-12-10] MEDS ORDERED: METHADONE HCL 40 MG DISPERSABLE TABLET ONE (05:15)
[2019-12-10] MEDS: PATIENT'S OWN MEDICATION (NON-FORMULARY) (Omeprazole [Omeprazole] 40 MG) PO SCH (06:13)
[2019-12-10] MEDS: METHADONE 80 MG, METHADONE 10 MG PO SCH (06:14)
[2019-12-10] MEDS: ACETAMINOPHEN 325 MG TABLET (FP) PO PRN (06:16)
[2019-12-10] MEDS ORDERED: PT OWN MED DRAWER 7, Y5N ONE (08:22)
[2019-12-10] MEDS: ESCITALOPRAM OXALATE 20 MG TABLET PO SCH (09:57)
[2019-12-10] MEDS: QUEtiapine FUMARATE 50 MG TABLET PO SCH (09:58)
[2019-12-10] MEDS: PRENATAL VITAMINS W/ FOLIC ACID TABLET (FP) PO SCH (09:58)
[2019-12-10] MEDS: NAPROXEN 375 MG TABLET PO SCH ×2 (09:58→21:20)
[2019-12-10] MEDS: NICOTINE 14 MG/24 HOURS TOPICAL PATCH TD SCH (09:58)
--- NOTE | 2019-12-10 11:29 | PN ---
[facility] Progress Note Note: Patient is scheduled for discharge tomorrow. scripts for 30 days supply of medications(Lexapro 20 mg/day, Seroquel 50 mg/day & 100 mg/hs) will be electronically transmitted to [facility], [address] [place] [id number]
[2019-12-10] MEDS: QUEtiapine FUMARATE 100 MG TABLET (FP) PO SCH (21:20)
[2019-12-10] MEDS: THIAMINE HCL 100 MG TABLET (FP) PO SCH (21:20)
[2019-12-10] MEDS: GABAPENTIN 300 MG CAPSULE PO SCH (21:20)
[2019-12-10] MEDS: MELATONIN 5 MG TABLETS PO SCH (21:20)
[2019-12-11] MEDS ORDERED: METHADONE 80 MG, METHADONE 10 MG PO SCH (06:00)
[2019-12-11] MEDS ORDERED: METHADONE HCL 10 MG TABLET ONE (06:21)
[2019-12-11] MEDS ORDERED: METHADONE HCL 40 MG DISPERSABLE TABLET ONE (06:22)
[2019-12-11] MEDS: PATIENT'S OWN MEDICATION (NON-FORMULARY) (Omeprazole [Omeprazole] 40 MG) PO SCH (06:33)
[2019-12-11] MEDS: ACETAMINOPHEN 325 MG TABLET (FP) PO PRN (06:33)
[2019-12-11 07:11] VITALS: BP 160/79; PULSE 99; TEMP 98.6
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
[2019-12-11] MEDS: QUEtiapine FUMARATE 50 MG TABLET PO SCH (09:07)
[2019-12-11] MEDS: ESCITALOPRAM OXALATE 20 MG TABLET PO SCH (09:07)
[2019-12-11] MEDS: NAPROXEN 375 MG TABLET PO SCH (09:07)
[2019-12-11] MEDS: NICOTINE 14 MG/24 HOURS TOPICAL PATCH TD SCH (09:08)
[2019-12-11] MEDS: PRENATAL VITAMINS W/ FOLIC ACID TABLET (FP) PO SCH (09:08)
== END 2019-12-11 09:23 | disposition home or self-care (01) | DRG 895 ==
LOC: YASAS 16:20 → Y3E 17:37
PROVIDERS: ADMIT Allergy & Immunology; ATTEND Allergy & Immunology
PROC: HZ42ZZZ Group Counseling for Substance Abuse Treatment, Cognitive-Behavioral (ICD-10-PCS; principal; 2019-11-22)
DX: F11.20 Opioid dependence, uncomplicated (principal); J18.9 Pneumonia, unspecified organism; F13.20 Sedative, hypnotic or anxiolytic dependence, uncomplicated; F19.282 Other psychoactive substance dependence with psychoactive substance-induced sleep disorder; F17.210 Nicotine dependence, cigarettes, uncomplicated; D64.9 Anemia, unspecified; I10 Essential (primary) hypertension; K21.9 Gastro-esophageal reflux disease without esophagitis; M54.30 Sciatica, unspecified side; M41.9 Scoliosis, unspecified; M16.11 Unilateral primary osteoarthritis, right hip; M54.5 Low back pain; G89.29 Other chronic pain; Z86.19 Personal history of other infectious and parasitic diseases; Z59.0 Homelessness
CPT/HCPCS: 36415; 80053; 81003; 85027; 85660; 86593; 86780